=== PATIENT | female | born 1980 | race Caucasian/White ===

== ENCOUNTER 2020-06-23 22:27 | Emergency (ER) | payer OTHER, MEDICARE, SELFPAY ==
--- NOTE | ~2020-06-23 | CT_ITS ---
EXAMINATION: CT lumbar spine wo con DATE: 06/23/2020 23:43 INDICATION: Low back pain. TECHNIQUE: Computed tomography (CT) of the lumbar spine was performed without intravenous contrast. A utomated exposure control and iterative reconstruction technique were employed. The dose-length produ ct was 362.45 mGy-cm. COMPARISON: Lumbar spine radiographs 01/02/2019 FINDINGS: There is an intrauterine device in abnormally low position. There is 5 degrees levocurvatur e of lumbar spine. There are changes of posterior fusion procedure at L4-L5 with pedicle screws. Vert ebral body heights are normal. There is mildly decreased disc height at T12-L1, severely decreased di sc height at L3-L4, and moderately decreased disc height at L4-L5. The following disc levels are spec ifically discussed: L1-L2: The disc does not extend beyond the endplate margin. There is mild bilateral facet joint osteo arthritis. There is no neural foraminal stenosis. There is no central canal stenosis. L2-L3: The disc is bulging. There is severe bilateral facet joint osteoarthritis. There is mild bilat eral neural foraminal stenosis. There is mild central canal stenosis. L3-L4: The disc is bulging. There is severe bilateral facet joint osteoarthritis. There is moderate b ilateral neural foraminal stenosis. There is moderate central canal stenosis. L4-L5: The disc is bulging. There is moderate bilateral facet joint hypertrophy. There is mild right and moderate left neural foraminal stenosis. There is mild central canal stenosis with posterior deco mpression. L5-S1: The disc does not extend beyond the endplate margin. There is severe bilateral facet joint ost eoarthritis. There is mild bilateral neural foraminal stenosis. There is no central canal stenosis. IMPRESSION: 1. Severe lumbar spondylosis. 2. Posterior fusion procedure at L4-L5. 3. Intrauterine device in abnormally low position. Reviewed, dictated and finalized at location A.
[2020-06-23 22:35] VITALS: BP 123/64; PULSE 97; RESP 18; TEMP 36.3; O2SAT 99
--- NOTE | 2020-06-23 23:04 | ED.GENADULT ---
HPI - General Adult General Chief complaint: Back Pain/Injury Stated complaint: muscle spasms in back Time Seen by Provider: 06/23/20 23:02 Source: patient and family () Mode of arrival: ambulatory Limitations: no limitations History of Present Illness HPI narrative: 40-year-old female is here for treatment of acute on chronic back pain. She has a long history of back surgeries and degenerative disc disease. She is on medications for pain and muscle spasms. Her back pain originated from a work injury in 2003 and she has had spinal fusion 2008. She states that for the last several days the pain has been getting worse in her back and shooting down her left leg. She occasionally uses a walker at home when the pain gets especially bad. Denies any bowel or bladder dysfunction, no saddle anesthesia Onset (ago): day(s) Radiation: extremity (left leg) Severity: severe Pain Consistency: constant Relieving factors: none Exacerbating factors: movement and other (touch) Related Data Home Medications Medication Instructions Recorded Confirmed albuterol sulfate [Ventolin HFA] 2 puff INHALATION QID PRN 06/23/20 alprazolam [Xanax] 06/23/20 aripiprazole [Abilify] 5 mg PO DAILY 06/23/20 atorvastatin 20 mg PO DAILY 06/23/20 baclofen 5 mg PO TID 06/23/20 certolizumab pegol [Cimzia] 400 mg SUBCUT ONCE 06/23/20 dicyclomine 20 mg PO BID 06/23/20 famotidine 40 mg PO BID 06/23/20 lamotrigine [Lamictal] 200 mg PO BID 06/23/20 Allergies Allergy/AdvReac Type Severity Reaction Status Date / Time rofecoxib Allergy Intermediate hives Verified 06/23/20 23:09 levofloxacin Allergy Unknown Rash Verified 06/23/20 23:09 meloxicam Allergy Unknown Rash Verified 06/23/20 23:09 methotrexate Allergy Unknown Rash Verified 06/23/20 23:09 paroxetine Allergy Unknown Rash Verified 06/23/20 23:09 Penicillins Allergy Unknown HIVES Verified 06/23/20 23:09 sertraline Allergy Unknown Rash Verified 06/23/20 23:09 Review of Systems Review of Systems: All systems reviewed & are unremarkable except as noted in HPI and below PMFSH Past Medical History Medical History Arthritis Back pain DDD (degenerative disc disease) Depression Fibromyalgia Migraines Surgical History Surgical History Hx of appendectomy Hx of spinal surgery Social History Social History (Updated 06/23/20 @ 23:26 by Jeannine Garrido PA-C) Smoking status: Never smoker Alcohol intake: never Living arrangements: with family Occupation/Education: other Additional occupation/education comments: disability Gender identity (if verbalized by the patient): Female Exam Const: General: healthy appearing, no acute distress and alert HENMT: Head: normal to inspection Eyes: Pupils: Equal, round and reactive pupils present Resp: Effort & Inspection: normal respiratory effort Auscultation: clear to auscultation bilaterally Cardio: Rate: regular rate Rhythm: regular rhythm Back/Spine/Pelvis: Thoracic/Lumbar Spine: pain with thoraco-lumbar ROM, paraspinal muscle tenderness (exquisitely tender to light touch over well healed scar.), thoraco-lumbar ROM limited (in all planes) and lumbar spinal tenderness Skin: General skin exam: normal color Neuro: General: moves all extremities and no focal motor deficits Extrem: General: normal to inspection Other: normal strength in lower extremities. Course Course Emergency Course: Radiology results reviewed with the patient and her . Recommend that she double her dose of baclofen to 10 mg 3 times daily and will treat with a Medrol Dosepak. Patient agrees with the plan and will follow up with her doctor as well. Vital Signs Vital signs: Vital Signs Temperature 36.3 C L 06/23/20 22:35 Pulse Rate 97 06/23/20 22:35 Respiratory Rate 18 06/23/20 22:35 Blood Pressure 123/64 06/23/20 22:35 Pulse
[2020-06-24] MEDS: predniSONE 40 MG, predniSONE 10 MG 50 MG PO (00:43)
[2020-06-24 00:45] VITALS: BP 110/70; PULSE 80; RESP 16; TEMP 37; O2SAT 100
== END 2020-06-24 00:54 | disposition home or self-care (01) ==
PROVIDERS: Emergency Provider Emergency Medicine; PCP Internal Medicine
DX: M54.42 Lumbago with sciatica, left side (principal); G89.29 Other chronic pain; Z98.1 Arthrodesis status; M19.90 Unspecified osteoarthritis, unspecified site; M79.7 Fibromyalgia; F32.9 Major depressive disorder, single episode, unspecified; Z97.5 Presence of (intrauterine) contraceptive device; M47.816 Spondylosis without myelopathy or radiculopathy, lumbar region
CPT/HCPCS: 72131; 99284; J7512

== ENCOUNTER 2021-04-01 10:41 | Outpatient (CLI) | payer OTHER, MEDICARE, SELFPAY ==
--- NOTE | ~2021-04-01 | XR_ITS ---
XR knee RT 2V 04/01/2021 11:04 Indication: Chronic right knee pain Procedure: 2 views right knee Comparison: No prior studies for comparison. Findings: Mild osteoarthritis of the right knee. No fracture, subluxation or dislocation. No signific ant joint effusion. No foreign bodies. Impression: 1: Mild osteoarthritis of the right knee. Reviewed, dictated and finalized at location A. LE DEVICE ENGINEER Impression: 1: Mild osteoarthritis of the right knee.
[2021-04-01 17:42] LABS: Basophils Absolute Auto 0.1 K/mm3 (0.0-0.1); Basophils Percent Auto 0.7 % (0.2-1.2); Eosinophils Absolute Auto 0.4 K/mm3 (0-0.3); Hematocrit 37.9 % (37.0-47.0); Hemoglobin 12.5 g/dL (12.0-15.0); Immature Granulocyte Absolute 0.03 K/mm3 (0.00-0.031); Immature Granulocyte Percent A 0.3 % (0-0.5); Lymphocytes Absolute Auto 2.56 K/mm3 (0.9-3.2); Lymphocytes Percent Auto 27.2 % (18.3-44.2); Mean Corpuscular Hemoglobin 32.3 pg (26-34); Mean Corpuscular Volume 97.9 fl (80-100); Mean Platelet Volume 11.5 fl (7.4-10.4); Monocytes Absolute Auto 0.6 K/mm3 (0.1-0.6); Monocytes Percent Auto 6.4 % (2.6-8.5); Neutrophils Absolute Auto 5.8 K/mm3 (1.3-6.7); Neutrophils Percent Auto 61.4 % (45.5-73.1); Platelet Count Result 235 k/mm3 (150-375); Red Blood Count 3.87 M/mm3 (4.2-5.4); Red Cell Distribution Width 12.6 % (11.5-14.5); White Blood Count 9.4 K/mm3 (4.5-10.0)
[2021-04-01 17:50] LABS: Alanine Aminotransferase 9 U/L (4-35); Albumin Level 4.4 g/dL (3.5-5.1); Alkaline Phosphatase 78 U/L (38-126); Anion Gap 9 mmol/L (8-16); Aspartate Amino Transferase 20 U/L (14-36); Bilirubin,Total 0.5 mg/dL (0.2-1.3); Blood Urea Nitrogen 4 mg/dL (7-17); Calcium 9.2 mg/dL (8.4-10.2); Carbon Dioxide 28 mmol/L (22-30); Chloride 100 mmol/L (98-107); Cholesterol 142 mg/dL (0-200); Estimated Glomerular Filt Rate 55; Glucose 89 mg/dL (65-110); HDL Direct 53 mg/dL; Potassium 4.1 mmol/L (3.4-5.0); Sodium 137 mmol/L (137-145); Triglycerides 75 mg/dL (<150)
[2021-04-01 18:01] LABS: LDL Cholesterol Direct 66 mg/dL
[2021-04-01 18:52] LABS: Hemoglobin A1C 5.1 % (<5.7)
== END 2021-04-01 10:42 | disposition home or self-care (01) ==
PROVIDERS: PCP Family Medicine; Visit Provider Family Medicine
DX: O24.919 Unspecified diabetes mellitus in pregnancy, unspecified trimester (principal); Z83.3 Family history of diabetes mellitus; E78.5 Hyperlipidemia, unspecified; M17.11 Unilateral primary osteoarthritis, right knee; Z3A.00 Weeks of gestation of pregnancy not specified
CPT/HCPCS: 36415; 73560; 80053; 80061; 83036; 85025

== ENCOUNTER 2021-06-24 15:33 | Outpatient (CLI) | payer OTHER, MEDICARE, SELFPAY ==
--- NOTE | ~2021-06-24 | XR_ITS ---
XR lumbar spine min 4V DATE: 06/24/2021 15:51 INDICATION: Fall 2 days ago. Left low back pain. TECHNIQUE: AP, lateral, coned lateral lumbosacral and bilateral oblique views COMPARISON: 06/23/2020 CDT lumbar spine FINDINGS: Status post posterior surgical spinal fusion at L4-5 with bilateral pedicle screws and rods . There is severe degenerative disease at L3-4 and moderately prominent degenerative disc disease at L4 -5. There is mild degenerative disc disease at the remaining lumbar and lumbosacral interspaces. No fracture or bone destruction is evident. The lumbar pedicles appear intact. Sacroiliac joints are unremarkable. IUD overlies the mid pelvis. IMPRESSION: Status post posterior surgical fusion at L4-5 Severe degenerative disc disease at L3-4 Moderate degenerative disease at L4-5 and mild degenerative disc disease at the remaining lumbar and lumbosacral interspaces Reviewed, dictated and finalized at location A.
--- NOTE | ~2021-06-24 | XR_ITS ---
XR knee RT 3V 06/24/2021 15:51 Indication: Status post recent fall. Right knee pain. Procedure: 3 views right knee Comparison: 04/01/2021 Findings: No significant joint space narrowing. Mild osteoarthritis of the patellofemoral compartment . No acute fracture, subluxation or dislocation. No significant joint effusion. Impression: 1: Mild osteoarthritis of the right knee. Reviewed, dictated and finalized at location B. Impression: 1: Mild osteoarthritis of the right knee.
== END 2021-06-24 15:34 | disposition home or self-care (01) ==
LOC: ANHBWCIMG 15:36
PROVIDERS: PCP Family Medicine; Visit Provider Family Medicine
DX: M79.7 Fibromyalgia (principal); M47.816 Spondylosis without myelopathy or radiculopathy, lumbar region; Z98.1 Arthrodesis status; Z97.5 Presence of (intrauterine) contraceptive device; M17.11 Unilateral primary osteoarthritis, right knee
CPT/HCPCS: 72110; 73562

== ENCOUNTER 2021-09-18 17:14 | Emergency (ER) | payer MEDICARE, MEDICAID, SELFPAY ==
[2021-09-18 17:16] VITALS: BP 105/65; PULSE 78; RESP 14; TEMP 36.8; O2SAT 98
--- NOTE | 2021-09-18 17:56 | ED.DENTAL ---
HPI - Dental/Oral General Chief complaint: Dental/Oral Stated complaint: tooth pain Time Seen by Provider: 09/18/21 17:56 Source: patient Mode of arrival: ambulatory History of Present Illness HPI Narrative: 41-year-old female presented for complaint of right lower jaw swelling, onset today. Rates pain 8 out of 10. Endorses multiple dental caries, broken teeth. She does not have a dentist. She has taken ibuprofen for symptoms. Denies nausea, vomiting, fevers or chills. MD Complaint: tooth pain Related Data Home Medications Medication Instructions Recorded Confirmed albuterol sulfate 90 mcg/actuation 2 puff inhalation QID PRN 06/23/20 09/18/21 aerosol inhaler (Ventolin HFA) Bronchospasm famotidine 40 mg tablet 40 mg PO BID 06/23/20 09/18/21 folic acid 1 mg tablet 1 mg PO DAILY 09/02/20 09/18/21 atorvastatin 20 mg tablet 20 mg PO DAILY 09/18/21 09/18/21 Allergies Allergy/AdvReac Type Severity Reaction Status Date / Time rofecoxib Allergy Intermediate hives Verified 09/18/21 17:52 levofloxacin Allergy Unknown Rash Verified 09/18/21 17:52 meloxicam Allergy Unknown Rash Verified 09/18/21 17:52 methotrexate Allergy Unknown Rash Verified 09/18/21 17:52 paroxetine Allergy Unknown Rash Verified 09/18/21 17:52 Penicillins Allergy Unknown HIVES Verified 09/18/21 17:52 sertraline Allergy Unknown Rash Verified 09/18/21 17:52 Review of Systems Review of Systems: CONSTITUTIONAL: Denies body aches, fever, chills ENT: Denies rhinorrhea, congestion, sore throat, or otalgia. Reports dental pain CARDIOVASCULAR: Denies chest pain, palpitations RESPIRATORY: Denies cough or dyspnea. SKIN: Denies rash, itching, or wounds. MUSCULOSKELETAL: Denies myalgia. NEUROLOGIC: Denies headache, numbness, tingling, or weakness. PMF Past Medical History Medical History Allergies Anxiety Arthritis Back pain DDD (degenerative disc disease) Depression Fibromyalgia IBS (irritable bowel syndrome) Migraines Osteoarthritis Surgical History Surgical History Hx of appendectomy Hx of spinal surgery Family History Family History Father Diabetes mellitus Hypertension Cancer Anxiety and depression Mother Diabetes mellitus Sibling Diabetes mellitus Hypertension Unknown Asthma Anxiety and depression Grandparent Cancer Grandparent Cancer Diabetes mellitus Hypertension Depression Social History Social History Smoking packs per day: 0.5 Smoking cigarettes per day: 10.0 Smoking status: Former smoker Smoking end date: 04/11/20 Alcohol intake: never Additional occupation/education comments: disability Gender identity (if verbalized by the patient): Female Comments At time of signature, I have reviewed and agree with nursing past medical, surgical, social and family history unless otherwise noted. Please see nursing chart for further information. There is no relevant family history pertinent to the presenting complaint Exam Narrative: GENERAL: Appears in pain; no acute distress. HEAD: atraumatic. EYES: EOMI. No redness or drainage. Conjunctivae normal. ENT: Right lower jaw moderate swelling and mild erythema, multiple broken and missing teeth and caries, site is most consistent with #30 mucous membranes pink and moist. TMs normal bilaterally. Throat normal. Uvula midline. NECK: Normal AROM. Supple. No lymphadenopathy. CHEST: No respiratory distress. Clear to auscultation. HEART: Regular rate and rhythm. No murmur appreciated. ABDOMEN: Soft, nontender, nondistended, normal active bowel sounds. SKIN: Warm, dry, no rash. Normal skin turgor. NEURO: No focal deficits. Alert and oriented x3. Gait steady. Course Course Emergency Course: Patient is aware of diagnosis, un
== END 2021-09-18 18:10 | disposition home or self-care (01) ==
PROVIDERS: Emergency Provider Nurse Practitioner Family; PCP Family Medicine
DX: K04.7 Periapical abscess without sinus (principal); K02.9 Dental caries, unspecified; Z87.891 Personal history of nicotine dependence; M19.90 Unspecified osteoarthritis, unspecified site; M79.7 Fibromyalgia
CPT/HCPCS: 99213; G0463

== ENCOUNTER 2021-11-26 11:12 | Outpatient (CLI) | payer MEDICARE, MEDICAID, SELFPAY ==
--- NOTE | ~2021-11-26 | XR_ITS ---
EXAMINATION: XR hand RT min 3V INDICATION: Right hand pain TECHNIQUE: Three views of the right hand are obtained. COMPARISON: None available FINDINGS: There is no fracture, dislocation, or subluxation. The bones, soft tissues, and joint space s are normal. IMPRESSION: 1. No acute osseous abnormality. Reviewed, dictated and finalized at location A.
== END 2021-11-26 11:13 | disposition home or self-care (01) ==
LOC: ANHBWCIMG 11:13
PROVIDERS: PCP Family Medicine; Visit Provider Family Medicine
DX: M79.641 Pain in right hand (principal)
CPT/HCPCS: 73130

== ENCOUNTER 2021-12-17 08:16 | Outpatient (CLI) | payer MEDICARE, MEDICAID, SELFPAY ==
--- NOTE | ~2021-12-17 | XR_ITS ---
XR finger 3rd LT min 2V DATE: 12/17/2021 08:32 INDICATION: Third digit pain TECHNIQUE: 4 views COMPARISON: None FINDINGS: No fracture, dislocation, periosteal reaction or bone destruction. No radiopaque soft tissu e foreign body or subcutaneous emphysema. No soft tissue swelling is evident. No erosive change. IMPRESSION: No significant abnormality Reviewed, dictated and finalized at location A. IMPRESSION: No significant abnormality
== END 2021-12-17 08:17 | disposition home or self-care (01) ==
LOC: ANHBWCIMG 08:18
PROVIDERS: PCP Family Medicine; Visit Provider Family Medicine
DX: M79.645 Pain in left finger(s) (principal)
CPT/HCPCS: 73140

== ENCOUNTER 2022-03-31 09:40 | Outpatient (CLI) | payer MEDICARE, OTHER, MEDICAID, SELFPAY ==
--- NOTE | ~2022-03-31 | XR_ITS ---
Right foot Technique: AP, oblique, and lateral views were obtained. Clinical History: Pain Findings: No acute fracture or dislocation is seen. Osseous alignment is anatomic. Mild degenerative changes are present at the first metatarsophalangeal joint and sesamoid metatarsal articulations. Sof t tissues are unremarkable. Impression: Mild degenerative changes about the first MPJ region, as detailed above. Reviewed, dictated and finalized at location . EY RESEARCH MANAGER Impression: Mild degenerative changes about the first MPJ region, as detailed above.
[2022-03-31 19:34] LABS: Uric Acid 4.1 mg/dL (2.5-7.5)
== END 2022-03-31 09:41 | disposition home or self-care (01) ==
PROVIDERS: PCP Family Medicine; Visit Provider Family Medicine
DX: M79.671 Pain in right foot (principal); M10.9 Gout, unspecified
CPT/HCPCS: 36415; 73630; 84550

== ENCOUNTER 2022-04-14 13:26 | Outpatient (CLI) | payer MEDICARE, MEDICAID, SELFPAY ==
[2022-04-14 18:33] LABS: Alanine Aminotransferase 20 U/L (6-35); Albumin Level 4.2 g/dL (3.5-5.1); Alkaline Phosphatase 71 U/L (38-126); Anion Gap 3 mmol/L (8-16); Aspartate Amino Transferase 31 U/L (14-36); Bilirubin,Total 0.2 mg/dL (0.2-1.3); Blood Urea Nitrogen 10 mg/dL (7-17); Calcium 8.7 mg/dL (8.4-10.2); Carbon Dioxide 32 mmol/L (22-30); Chloride 102 mmol/L (98-107); Cholesterol 162 mg/dL (0-200); Estimated Glomerular Filt Rate 45; Glucose 91 mg/dL (65-110); HDL Direct 48 mg/dL; Potassium 3.7 mmol/L (3.4-5.0); Sodium 137 mmol/L (137-145); Triglycerides 191 mg/dL (<150)
[2022-04-14 18:44] LABS: LDL Cholesterol Direct 54 mg/dL
[2022-04-14 19:47] LABS: Hemoglobin 12.5 g/dL (12.0-15.0); Mean Corpuscular HGB Conc 32.1 g/dl (32-36); Mean Corpuscular Hemoglobin 31.1 pg (26-34); Mean Platelet Volume 10.4 fl (7.4-10.4); Platelet Count Result 322 k/mm3 (150-375); Red Blood Count 4.02 M/mm3 (4.2-5.4); Red Cell Distribution Width 13.3 % (11.5-14.5); White Blood Count 12.3 K/mm3 (4.5-10.0)
== END 2022-04-14 13:27 | disposition home or self-care (01) ==
LOC: ANHBWCLAB 13:27
PROVIDERS: PCP Family Medicine; Visit Provider Family Medicine
DX: M54.50 Low back pain, unspecified (principal); M25.559 Pain in unspecified hip; G89.29 Other chronic pain; M25.569 Pain in unspecified knee; F31.9 Bipolar disorder, unspecified; K58.9 Irritable bowel syndrome, unspecified; L40.50 Arthropathic psoriasis, unspecified; M79.7 Fibromyalgia; M54.9 Dorsalgia, unspecified; F41.9 Anxiety disorder, unspecified
CPT/HCPCS: 36415; 80053; 80061; 85027

== ENCOUNTER 2022-11-01 10:58 | Outpatient (CLI) | payer MEDICARE, MEDICAID, SELFPAY ==
[2022-11-01 20:38] LABS: Alanine Aminotransferase 27 U/L (6-35); Albumin Level 4.4 g/dL (3.5-5.1); Alkaline Phosphatase 78 U/L (38-126); Anion Gap 8 mmol/L (8-16); Aspartate Amino Transferase 44 U/L (14-36); Bilirubin,Total 0.2 mg/dL (0.2-1.3); Blood Urea Nitrogen 8 mg/dL (7-17); Calcium 9.4 mg/dL (8.4-10.2); Carbon Dioxide 31 mmol/L (22-30); Chloride 98 mmol/L (98-107); Estimated Glomerular Filt Rate 49; Glucose 90 mg/dL (65-110); Potassium 4.3 mmol/L (3.4-5.0); Sodium 137 mmol/L (137-145)
== END 2022-11-01 10:59 | disposition home or self-care (01) ==
PROVIDERS: PCP Family Medicine; Visit Provider Nurse Practitioner Adult Health
DX: G25.81 Restless legs syndrome (principal); N28.9 Disorder of kidney and ureter, unspecified
CPT/HCPCS: 36415; 80053

== ENCOUNTER 2022-11-11 13:46 | Emergency (ER) | payer MEDICARE, OTHER, MEDICAID, SELFPAY ==
--- NOTE | ~2022-11-11 | XR_ITS ---
EXAMINATION: XR hand RT min 3V DATE: 11/11/2022 14:08 INDICATION: Lateral right hand pain and bruising post fall TECHNIQUE: Posteroanterior, oblique and lateral views of the right hand were obtained. COMPARISON: 11/26/2021 FINDINGS: Alignment is normal. No fracture. Unchanged minimal to mild osteoarthritis at the first carpometacarp al, first metacarpophalangeal and multiple predominantly distal interphalangeal joints. No erosions. Soft tissues are unremarkable. IMPRESSION: 1. Minimal to mild polyarticular osteoarthritis with typical distribution at the right hand. No acute osseous abnormality. Reviewed, dictated and finalized at location A. IMPRESSION: 1. Minimal to mild polyarticular osteoarthritis with typical distribution at th e right hand. No acute osseous abnormality.
--- NOTE | 2022-11-11 13:52 | ED.UPPEXIN ---
HPI - Extremity Injury (Upper) General Chief Complaint: Extremity Injury, Upper Stated Complaint: Right Wrsit Injury Source: patient, family and RN notes reviewed History of Present Illness HPI narrative: 42 yo F presents to urgent care with complaints of right hand pain and bruising. Pt states she tripped over her dog yesterday and fell backwards, injuring her right hand. Pt states she landed on a set of plastic drawers and hit the back of her head on the TV stand. Pt denies any LOC, neck pain, or TORRES. Denies any chest pain, SOB, vomiting, or abdominal pain. Pt has taken ibuprofen with minimal relief. Related Data Home Medications Medication Instructions Recorded Confirmed famotidine 40 mg tablet 40 mg PO BID 06/23/20 09/13/22 folic acid 1 mg tablet 1 mg PO DAILY 09/02/20 09/13/22 cariprazine 6 mg capsule (Vraylar) mg 11/11/22 lurasidone 60 mg tablet mg 11/11/22 Allergies Allergy/AdvReac Type Severity Reaction Status Date / Time rofecoxib Allergy Intermediate hives Verified 11/01/22 10:20 levofloxacin Allergy Unknown Rash Verified 11/01/22 10:20 meloxicam Allergy Unknown Rash Verified 11/01/22 10:20 methotrexate Allergy Unknown Rash Verified 11/01/22 10:20 paroxetine Allergy Unknown Rash Verified 11/01/22 10:20 Penicillins Allergy Unknown HIVES Verified 11/01/22 10:20 sertraline Allergy Unknown Rash Verified 11/01/22 10:20 Review of Systems Review of Systems: CONSTITUTIONAL: Denies fever, chills, or sweats. EYES: Denies visual changes, redness, or discharge. ENT: Denies otalgia and sore throat CARDIOVASCULAR: Denies chest pain, palpitations, or edema. RESPIRATORY: Denies cough or dyspnea. GASTROINTESTINAL: Denies abdominal pain, nausea, vomiting, or diarrhea. GENITOURINARY: Denies dysuria or hematuria. SKIN: Denies rash or itching. MUSCULOSKELETAL: pain in right hand NEUROLOGIC: Denies headache, numbness, or weakness. Pertinent positives per HPI. [facility] Past Medical History Medical History Allergies Anxiety Arthritis Back pain DDD (degenerative disc disease) Depression Fibromyalgia IBS (irritable bowel syndrome) Migraines Osteoarthritis Surgical History Surgical History Hx of appendectomy Hx of spinal surgery Family History Family History Father Diabetes mellitus Hypertension Cancer Anxiety and depression Mother Diabetes mellitus Sibling Diabetes mellitus Hypertension Unknown Asthma Anxiety and depression Grandparent Cancer Grandparent Cancer Diabetes mellitus Hypertension Depression Social History Social History Smoking packs per day: 0.5 Smoking cigarettes per day: 10.0 Smoking status: Former smoker Smoking end date: 04/11/20 Alcohol intake: never Lack of Transportation: No Lack of Food: Sometimes True Current Housing: I Have Housing Concerned About Future Housing: No Difficulty Paying Gas/Electric Bills: YES Difficulty Paying for Meds: No Education: High School Diploma/GED Difficulty w/ Childcare or Family Care: No Living arrangements: with family Occupation/Education: other Additional occupation/education comments: disability Gender identity (if verbalized by the patient): Female Comments At the time of my signature, I reviewed and agree with the nursing past medical, surgical, social, and family history. There is no relevant family history pertinent to the patient complaint. Exam Narrative: GENERAL: This is a well-nourished, well-developed patient, in no apparent distress. HEAD: normocephalic, atraumatic. EYES: Sclera clear/white. Vision is grossly intact. EARS: External ears normal, auditory canals clear and without drainage. Hearing grossly intact. NOSE: External nose normal with no obv
[2022-11-11 14:00] VITALS: BP 126/86; PULSE 95; RESP 16; TEMP 36.9; O2SAT 99
[2022-11-11 14:01] VITALS: BP 126/86; PULSE 95; RESP 16; TEMP 36.9; O2SAT 99
== END 2022-11-11 14:30 | disposition home or self-care (01) ==
PROVIDERS: Emergency Provider Nurse Practitioner Family; PCP Family Medicine
DX: S60.221A Contusion of right hand, initial encounter (principal); W01.0XXA Fall on same level from slipping, tripping and stumbling without subsequent striking against object, initial encounter; M19.90 Unspecified osteoarthritis, unspecified site; M79.7 Fibromyalgia
CPT/HCPCS: 73130; 99213; G0463

== ENCOUNTER 2023-01-06 18:43 | Emergency (ER) | payer MEDICARE, OTHER, MEDICAID, SELFPAY ==
[2023-01-06 18:46] VITALS: BP 110/70; PULSE 98; RESP 20; TEMP 36.4; O2SAT 100
--- NOTE | 2023-01-06 19:05 | ED.EXTPRO ---
HPI - Extremity Problem General Chief complaint: Extremity Problem,Nontraumatic Stated complaint: right foot pain Time Seen by Provider: 01/06/23 19:00 Source: patient, RN notes reviewed and old records reviewed Mode of arrival: ambulatory Limitations: no limitations History of Present Illness HPI Narrative: 42 year old female who presents to [facility] care with complaints of pain to her right foot with some swelling and redness to the top of her foot with no injury for the past week. Patient reports that she has a history of gout and thinks that it must be a flare. Patient reports that she has taken Ibuprofen and Tyleol with no improvement. MD Complaint: extremity pain, extremity swelling and other (redness top of foot) Onset (ago): week(s) (1) Pain Consistency: constant Location: lower extremity (right foot) Severity scale (1-10): 7 Quality: burning Exacerbating factors: range of motion and weight bearing Related Data Home Medications Medication Instructions Recorded Confirmed famotidine 40 mg tablet 40 mg PO BID 06/23/20 09/13/22 folic acid 1 mg tablet 1 mg PO DAILY 09/02/20 09/13/22 cariprazine 6 mg capsule (Vraylar) mg 11/11/22 lurasidone 60 mg tablet mg 11/11/22 Allergies Allergy/AdvReac Type Severity Reaction Status Date / Time rofecoxib Allergy Intermediate hives Verified 01/03/23 10:31 levofloxacin Allergy Unknown Rash Verified 01/03/23 10:31 meloxicam Allergy Unknown Rash Verified 01/03/23 10:31 methotrexate Allergy Unknown Rash Verified 01/03/23 10:31 paroxetine Allergy Unknown Rash Verified 01/03/23 10:31 Penicillins Allergy Unknown HIVES Verified 01/03/23 10:31 sertraline Allergy Unknown Rash Verified 01/03/23 10:31 Review of Systems Review of Systems: CONSTITUTIONAL: Denies fever, chills, or sweats. EYES: Denies visual changes, redness, or discharge. ENT: Denies rhinorrhea, congestion, sore throat, or otalgia. CARDIOVASCULAR: Denies chest pain, palpitations, or edema. RESPIRATORY: Denies cough or dyspnea. GASTROINTESTINAL: Denies abdominal pain, nausea, vomiting, or diarrhea. GENITOURINARY: Denies dysuria or hematuria. SKIN: Denies rash or itching. MUSCULOSKELETAL: Reports chronic back pain,positive for pain to the right foot with redness and swelling top of foot no known trauma, or myalgia. NEUROLOGIC: Denies headache, numbness, or weakness. PSYCHIATRIC: positive for history of anxiety or depression. All systems reviewed & are unremarkable except as noted in HPI and below PMFSH Past Medical History Medical History (Updated 01/07/23 @ 12:52 by Dawna Bloom NP) Allergies Anxiety Arthritis Back pain DDD (degenerative disc disease) Depression Fibromyalgia IBS (irritable bowel syndrome) Migraines Osteoarthritis Surgical History Surgical History (Updated 01/07/23 @ 12:52 by Dawna Bloom NP) Hx of appendectomy Hx of spinal surgery cervical and spinal surgery Family History Family History Father Diabetes mellitus Hypertension Cancer Anxiety and depression Mother Diabetes mellitus Sibling Diabetes mellitus Hypertension Unknown Asthma Anxiety and depression Grandparent Cancer Grandparent Cancer Diabetes mellitus Hypertension Depression Social History Social History Smoking packs per day: 0.5 Smoking cigarettes per day: 10.0 Smoking status: Former smoker Smoking end date: 04/11/20 Alcohol intake: never Lack of Transportation: No Lack of Food: Sometimes True Current Housing: I Have Housing Concerned About Future Housing: No Difficulty Paying Gas/Electric Bills: YES Difficulty Paying for Meds: No Education: High School Diploma/GED Difficulty w/ Childcare or Family Care: No Living arrangements: with family Occupation/Education: other Additional occupation/education comments: disability Gender identity (if verba
== END 2023-01-06 19:26 | disposition home or self-care (01) ==
PROVIDERS: Emergency Provider Registered Nurse; PCP Family Medicine
DX: M25.571 Pain in right ankle and joints of right foot (principal); M10.9 Gout, unspecified; Z87.891 Personal history of nicotine dependence
CPT/HCPCS: 99213; G0463

== ENCOUNTER 2023-01-17 13:50 | Outpatient (CLI) | payer MEDICARE, MEDICAID, SELFPAY ==
--- NOTE | ~2023-01-17 | XR_ITS ---
EXAMINATION: [id number] DATE: 01/17/2023 14:08 INDICATION: Right foot pain. TECHNIQUE: 4 views of right foot were obtained. COMPARISON: None. FINDINGS: There is moderate hallux valgus. There is a nondisplaced fracture of tuft of first distal p halanx. There is an old fracture deformity of base of first distal phalanx. There is a comminuted fra cture of head and neck of second metatarsal. The main distal fracture fragment demonstrates 46 degree s lateral angulation. There is a comminuted fracture of head and neck of third metatarsal. The main d istal fracture fragment demonstrates 37 degrees lateral angulation. There is a comminuted fracture of head and neck of fourth metatarsal. The main distal fracture fragment demonstrates 25 degrees latera l angulation. There is mild osteoarthritis of some the interphalangeal joints. There is moderate oste oarthritis of first metatarsophalangeal joint. There is an enthesophyte at posterior aspect of calcan eal tuberosity. IMPRESSION: 1. Fracture of tuft of first distal phalanx. 2. Fractures of the heads and necks of the second-fourth metatarsals. 3. Moderate hallux valgus. 4. Polyarticular osteoarthritis. Reviewed, dictated and finalized at location A.
== END 2023-01-17 13:51 | disposition home or self-care (01) ==
PROVIDERS: PCP Family Medicine; Visit Provider Orthopaedic Surgery
DX: S92.424A Nondisplaced fracture of distal phalanx of right great toe, initial encounter for closed fracture (principal); S92.324A Nondisplaced fracture of second metatarsal bone, right foot, initial encounter for closed fracture; S92.334A Nondisplaced fracture of third metatarsal bone, right foot, initial encounter for closed fracture; S92.344A Nondisplaced fracture of fourth metatarsal bone, right foot, initial encounter for closed fracture; M20.11 Hallux valgus (acquired), right foot; M15.9 Polyosteoarthritis, unspecified; X58.XXXA Exposure to other specified factors, initial encounter
CPT/HCPCS: 73630

== ENCOUNTER 2023-02-28 13:05 | Outpatient (CLI) | payer MEDICARE, MEDICAID, SELFPAY ==
--- NOTE | ~2023-02-28 | XR_ITS ---
EXAMINATION: XR foot RT min 3V DATE: 02/28/2023 13:19 INDICATION: Right foot fracture follow-up TECHNIQUE: Dorsoplantar, lateral, and 2 oblique views of the right foot were obtained. COMPARISON: 01/17/2023 FINDINGS: A tuft fracture of the first distal phalanx is again seen. Calcified callus at the fracture site has increased. Fractures in the head and necks of the second through fourth metatarsals are als o again noted. There is increased calcified callus and remodeling at the fracture site. There is unch anged lateral angulation at the metatarsal fracture sites. No additional healing fracture is identifi ed. The soft tissues are unremarkable. IMPRESSION: 1. Fractures of the second through fourth metatarsals and tuft of the first distal phalanx with routi ne healing. Reviewed, dictated and finalized at location F. N TRIMMER IMPRESSION: 1. Fractures of the second through fourth metatarsals and tuft of the first dis tarik phalanx with routine healing.
== END 2023-02-28 13:06 | disposition home or self-care (01) ==
PROVIDERS: PCP Family Medicine; Visit Provider Orthopaedic Surgery
DX: S92.324D Nondisplaced fracture of second metatarsal bone, right foot, subsequent encounter for fracture with routine healing (principal); S92.334D Nondisplaced fracture of third metatarsal bone, right foot, subsequent encounter for fracture with routine healing; S92.344D Nondisplaced fracture of fourth metatarsal bone, right foot, subsequent encounter for fracture with routine healing; X58.XXXD Exposure to other specified factors, subsequent encounter
CPT/HCPCS: 73630

== ENCOUNTER 2023-09-21 14:01 | Outpatient (CLI) | payer MEDICARE, MEDICAID, SELFPAY ==
[2023-09-21 19:09] LABS: Hemoglobin 12.1 g/dL (12.0-15.0); Mean Corpuscular HGB Conc 31.8 g/dl (32-36); Mean Corpuscular Hemoglobin 29.8 pg (26-34); Mean Corpuscular Volume 93.6 fl (80-100); Platelet Count Result 426 k/mm3 (150-375); Red Blood Count 4.06 M/mm3 (4.2-5.4); Red Cell Distribution Width 14.9 % (11.5-14.5); White Blood Count 12.2 K/mm3 (4.5-10.0)
[2023-09-21 19:39] LABS: Alanine Aminotransferase 14 U/L (6-35); Albumin Level 4.4 g/dL (3.5-5.1); Alkaline Phosphatase 81 U/L (38-126); Anion Gap 5 mmol/L (4-12); Aspartate Amino Transferase 51 U/L (14-36); Bilirubin,Total 0.3 mg/dL (0.2-1.3); Blood Urea Nitrogen 7 mg/dL (7-17); Calcium 9.1 mg/dL (8.4-10.2); Carbon Dioxide 31 mmol/L (22-30); Chloride 100 mmol/L (98-107); Estimated Glomerular Filt Rate 54; Glucose 86 mg/dL (65-110); Potassium 4.6 mmol/L (3.4-5.0); Sodium 136 mmol/L (137-145)
== END 2023-09-21 14:02 | disposition home or self-care (01) ==
PROVIDERS: PCP Nurse Practitioner Adult Health; Visit Provider Nurse Practitioner Adult Health
DX: R59.9 Enlarged lymph nodes, unspecified (principal)
CPT/HCPCS: 36415; 80053; 85027

== ENCOUNTER 2024-02-21 11:57 | Outpatient (CLI) | payer MEDICARE, MEDICAID, SELFPAY ==
[2024-02-21 19:24] LABS: Rheumatoid Factor < 12.0 IU/ML (<12)
[2024-02-21 19:29] LABS: Alanine Aminotransferase 11 U/L (6-35); Albumin Level 4.3 g/dL (3.5-5.1); Alkaline Phosphatase 78 U/L (38-126); Anion Gap 8 mmol/L (4-12); Aspartate Amino Transferase 44 U/L (14-36); Bilirubin,Total 0.4 mg/dL (0.2-1.3); Blood Urea Nitrogen 12 mg/dL (7-17); Calcium 9.3 mg/dL (8.4-10.2); Carbon Dioxide 23 mmol/L (22-30); Chloride 101 mmol/L (98-107); Cholesterol 192 mg/dL (0-200); Estimated Glomerular Filt Rate 35; Glucose 82 mg/dL (65-110); HDL Direct 45 mg/dL; Potassium 4.5 mmol/L (3.4-5.0); Sodium 132 mmol/L (137-145); Triglycerides 178 mg/dL (<150)
[2024-02-21 19:40] LABS: LDL Cholesterol Direct 80 mg/dL
[2024-02-21 19:41] LABS: Hematocrit 31.9 % (37.0-47.0); Hemoglobin 10.2 g/dL (12.0-15.0); Mean Corpuscular Hemoglobin 29.1 pg (26-34); Mean Corpuscular Volume 91.1 fl (80-100); Mean Platelet Volume 9.8 fl (7.4-10.4); Platelet Count Result 402 k/mm3 (150-375); Red Cell Distribution Width 14.1 % (11.5-14.5); White Blood Count 9.1 K/mm3 (4.5-10.0)
[2024-02-21 20:28] LABS: Erythrocyte Sedimentation Rate 50 mm/hr (0-20)
[2024-02-23 04:28] LABS: ANA Cascade Screen NEGATIVE (NEGATIVE)
== END 2024-02-21 11:58 | disposition home or self-care (01) ==
LOC: ANHBWCLAB 12:00
PROVIDERS: PCP Nurse Practitioner Adult Health; Visit Provider Nurse Practitioner Adult Health
DX: E66.3 Overweight (principal); N28.9 Disorder of kidney and ureter, unspecified; M19.90 Unspecified osteoarthritis, unspecified site; R41.9 Unspecified symptoms and signs involving cognitive functions and awareness; M10.9 Gout, unspecified; L40.50 Arthropathic psoriasis, unspecified; G89.29 Other chronic pain; Z79.899 Other long term (current) drug therapy
CPT/HCPCS: 36415; 80053; 80061; 84443; 84550; 85027; 85652; 86038; 86225; 86235; 86364; 86430

== ENCOUNTER 2024-02-22 10:13 | Outpatient (CLI) | payer MEDICARE, MEDICAID, SELFPAY ==
[2024-02-22 19:54] LABS: Iron 66 ug/dL (37-170)
[2024-02-22 20:04] LABS: Percent Iron Saturation 29 % (20-50)
== END 2024-02-22 10:14 | disposition home or self-care (01) ==
LOC: ANHBWCLAB 10:14
PROVIDERS: PCP Nurse Practitioner Adult Health; Visit Provider Nurse Practitioner Adult Health
DX: D64.9 Anemia, unspecified (principal)
CPT/HCPCS: 36415; 82728; 83540; 83550

== ENCOUNTER → 2024-09-25 10:32 | Outpatient (CLI) | payer MEDICARE, MEDICAID, SELFPAY ==
--- NOTE | ~2024-09-25 | XR_ITS ---
Right Hand Technique: PA and lateral views were obtained. Clinical History: Respiratory Findings: No acute fracture or dislocation is seen. Osseous alignment is anatomic. Joint spaces are p reserved. Soft tissues are unremarkable. Impression: Unremarkable right hand. Reviewed, dictated and finalized at location M. Impression: Unremarkable right hand.
--- NOTE | ~2024-09-25 | XR_ITS ---
Left Hand Technique: PA and lateral views were obtained. Clinical History: Pain Findings: No acute fracture or dislocation is seen. Osseous alignment is anatomic. Joint spaces are p reserved. Soft tissues are unremarkable. Impression: Unremarkable left hand. Reviewed, dictated and finalized at location M. Impression: Unremarkable left hand.
--- NOTE | ~2024-09-25 | XR_ITS ---
AP and oblique views of the SI joints CLINICAL HISTORY: Rheumatoid arthritis FINDINGS: There is minimal degenerative change of both SI joints. No erosive change or definite scler osis identified. Bilateral hip joints are intact. Soft tissues are unremarkable aside Myoview. IMPRESSION: Minimal degenerative change of the SI joints. Reviewed, dictated and finalized at location .
--- NOTE | ~2024-09-25 | XR_ITS ---
Lumbosacral Spine: AP and lateral views Clinical History: Rheumatoid arthritis COMPARISON: 06/24/2021 Findings: Posterior fusion from L4 to L5 is unchanged. No acute fracture or dislocation seen in the l umbar spine. There is probable mild chronic wedging deformity of T11. There is severe degenerative di sc narrowing at L3-L4. Remaining disc spaces are relatively well-preserved. There is mild to moderate facet arthropathy. The sacroiliac joints are normally outlined. Impression: Severe degenerative disc narrowing at L3-L4. Posterior fusion from L4 to L5. Mild probable chronic wedging deformity of T11. Reviewed, dictated and finalized at location . Impression: Severe degenerative disc narrowing at L3-L4. Posterior fusion from L4 to L5. Mild probable chronic wedging deformity of T11.
--- NOTE | ~2024-09-25 | XR_ITS ---
Right foot Technique: AP and lateral views were obtained. Clinical History: Rheumatoid arthritis Findings: No acute fracture or dislocation is seen. Osseous alignment is anatomic. There is mild dege nerative change of the first MTP joint. Soft tissues are unremarkable. Impression: Mild degenerative change of the first MTP joint. Reviewed, dictated and finalized at location . Impression: Mild degenerative change of the first MTP joint.
--- NOTE | ~2024-09-25 | XR_ITS ---
Left foot Technique: AP and lateral views were obtained. Clinical History: Rheumatoid arthritis Findings: No acute fracture or dislocation is seen. Osseous alignment is anatomic. Joint spaces are p reserved without erosive or degenerative change. Soft tissues are unremarkable. Impression: Unremarkable left foot radiographs. Reviewed, dictated and finalized at location . Impression: Unremarkable left foot radiographs.
--- OUTSIDE RECORDS SUMMARY | 2024-09-25 11:43 | XMS_ITS | Clinical Summary ---
Author Organization [facility] Address [address] [address] Care Team Providers Care Padded Box Sewer Name Role Phone Shaka Poe MD Primary Care Provider [phone] Allergies Active Allergy Reactions Criticality Noted Date Comments Levofloxacin Hives Medium 04/14/2011 Meloxicam Rash Medium 10/20/2017 Methotrexate Rash Medium 10/20/2017 Paroxetine Hcl Swelling Medium 04/14/2011 Penicillins Hives Medium 04/14/2011 Rofecoxib Hives Medium 04/14/2011 Sertraline Swelling Medium 04/14/2011 Medications lamoTRIgine (LaMICtal) 200 mg tablet take 1 tablet by oral route 2 times every day 0 0 03/25/20 15 Active dicyclomine (BENTYL) 20 mg tabletIndicatio ns:Irritable Bowel Syndrome Take 20 mg by mouth 2 (two) times a day. 05/09/19 19 Active CIMZIA STARTER KIT 400 mg/2 mL (200 mg/mL x 2) syringe kit INJECT THE CONTENTS OF 2 SYRINGES (400 MG) SUBCUTANEOUSLY AT WEEKS 0, 2, AND 4 THEN EVERY 4 WEEKS THEREAFTER. 0 01/10/20 19 Active VENTOLIN HFA 90 mcg/actuation inhaler 04/08/20 19 Active ALPRAZolam (XANAX) 1 mg tablet Take 1 tablet (1 mg total) by mouth 2 (two) times a day as needed for anxiety 1 tablet 05/19/19 20 Active Additional Information Patient taking differently: 0.5 mgoral4 times daily PRN, anxiety, Reported on 09/26/2019 atorvastatin (LIPITOR) 20 mg tablet Take 1 tablet (20 mg total) by mouth daily 30 tablet 5 05/19/19 20 Active [id number] -[id number] 1 mg-25 mg-12.5 mg-1 mg tablet daily 02/13/20 19 Active levonorgestrel (Mirena) IUD Mirena 20 mcg/24 hours (5 yrs) 52 mg intrauterine device Take 1 device by intrauterine route. Active naloxone (NARCAN) 4 mg/actuation spray,non-aeros olIndications:A t risk for respiratory depression due to opioid Administer 1 spray into affected nostril(s) as needed for opioid reversal 1 each 09/25/19 20 Active famotidine (PEPCID) 40 mg tablet Take 40 mg by mouth 2 (two) times a day Active DULoxetine DR (CYMBALTA) 20 mg capsule Take 20 mg by mouth daily Active FLUoxetine (PROzac) 20 mg capsule TAKE 2 CAPSULES BY MOUTH ONCE A DAY 01/01/20 20 Active folic acid (FOLVITE) 1 mg tablet Take 2,000 mcg by mouth daily 01/15/20 20 Active baclofen (LIORESAL) 10 mg tablet TAKE 1 TABLET BY MOUTH THREE TIMES A DAY 90 tablet 02/18/20 20 Active lidocaine (LIDODERM) 5 % Place 2 patches on the skin daily Remove & discard patch within 12 hours or as directed by MD. 30 patch 12/22/19 Active Active Problems Problem Noted Date Diagnosed Date HLA B27 positive 05/24/2019 Leukocytosis 05/24/2019 Low back pain 05/24/2019 Mechanical complication of i ntrauterine contraceptive device 05/24/2019 Myalgia 05/24/2019 Paresthesia of upper extremity 05/24/2019 Polyarthritis 05/24/2019 Psoriatic arthritis 05/24/2019 Tobacco user 05/24/2019 Thoracic spondylosis without myelopathy 05/24/19 20 UTI (urinary tract infection) 05/19/2019 Assessment & Plan (05/19/2019 4:05 PM COST CONTROL SUPERVISOR): Ucx: Group B strep -keflex prescription provided HLD (hyperlipidemia) 05/19/2019 Assessment & Plan (05/19/2019 4:14 PM COST CONTROL SUPERVISOR): 2 TC 256, HDL 44, LDL 169, TG 213, ASCVD 10yr ~5.9% -in shared decision making start atorva 20 and recommend low fat/low cholesterol diet Psychiatric disorder 05/18/2019 Assessment & Plan (05/19/2019 4:20 PM COST CONTROL SUPERVISOR): Patient endorses bipolar/anxiety/depression - continue meds for bipolar and depression: lamictal (level 8.6 at ~24hr, wnl), prozac, with xanax cut down as above. -In future consider change to longer acting benzodiazepine Assessment & Plan (05/18/2019 12:27 AM COST CONTROL SUPERVISOR): - patient endorses bipolar/anxiety/depression - continue meds for bipolar and depression, with xanax cut down as above. - psych consult in am to help with titration Encephalopathy 05/18/2019 Assessment & Plan (05/19/2019 4:12 PM COST CONTROL SUPERVISOR): Encephalopathy metabolic- UTI and due to opiates/benzos as well as other sedating home medications. Patient presents with 2nd episode of possible syncope and AMS in the past month. Ddx most likely polypharmacy (multiple sedating medications) vs seizure vs undiagnosed ARYA (body habitus not entirely c/w this and patient denies every being told she snores) vs less likely infection (UA dirty but 3+ LE and 3+ bacteria, patient asymptomatic). UDS: morphine (rx) and benzo (rx) +MJ. Patient very sleepy on initial exam. She has returned to baseline 05/18 afternoon. -Neuro c/s: very low suspicion for seizures based on the description of the events, and it would be unlikely for an adult to develop absence seizures at this age; EEG 05/16/2019 normal Instructed in the setting of recurrent episodes - Do not drive for 6 months (this is [place] law) - Do not work over an open flame - Do not swim alone or take baths - Do not climb ladders. - Avoid activities that may cause severe injury if you have another episode, such has holding knives or young children. -Discussion with pain medicine: in agreement with decreasing medications; suggested changing to a longer acting benzodiazepine -Unable to speak directly with psychiatrist, but visit notes reviewed. Lamictal level 8.6 (about 24hr after previous dose). Continue home Lamictal and Prozac. Titrate as follows - decrease xanax to 1 BID PRN from QID prn. - baclofen to 5 TID from 10 TID - continue MSER, hold MSIR. - acetaminophen ordered for prn pain meds Ucx: Group B strep -keflex prescription provided Assessment & Plan (05/18/2019 12:28 AM COST CONTROL SUPERVISOR): - patient presents with 2nd episode of syncope and AMS in the past month. Ddx for this is polypharmacy vs seizure vs undiagnosed ARYA (body habitus not entirely c/w this and patient denies every being told she snores) vs less likely infection (UA dirty but 3+ LE and 3+ bacteria, patient asymptomatic). - patient yawning > 10 times during my exam, remarks that she is very tired. She also has been avoiding driving volitionally, getting assistance from [place] or delaying taking meds when she knows she has to drive. Patient probably aware of some degree of AMS when she takes these meds. - will need formal consult to neuro in am to r/o seizures, as well as psych and pain management to help with medication adjustment. - pending that, will titrate as follows - decrease xanax to 1 BID PRN from QID prn. - baclofen to 5 TID from 10 TID - continue MSER, hold MSIR. - acetaminophen ordered for prn pain meds - f/u Ucx, though low suspicion for UTI Weight loss, unintentional 05/18/2019 Assessment & Plan (05/19/2019 4:13 PM COST CONTROL SUPERVISOR): Patient endorses '50lb' weight loss in last 6months, unintentional. Per chart review: 04/2017 176lb; 02/2019 167lb; 05/2019 156lb. (20lbs in 2yrs) -TSH wnl, HIV neg, HepC neg Right foot sprain, initial encounter 01/17/2019 DDD (degenerative disc disease), cervical 2017 Chronic pain syndrome 03/13/2018 Assessment & Plan (05/18/2019 6:37 PM COST CONTROL SUPERVISOR): - titrating pain meds as above Assessment & Plan (05/18/2019 12:27 AM COST CONTROL SUPERVISOR): - titrating pain meds as above - pain management c/s in am Cervical radiculopathy 03/13/2018 Sacroiliitis 08/03/2017 Trochanteric bursitis 05/08/2015 Other long chain beamer (current) drug therapy 4 Arthralgia of hip 09/24/2013 Lumbar radiculopathy 02/26/2013 Postlaminectomy syndrome of lumbar region 2012 Chronic pain 08/03/2012 Knee pain 08/03/2012 Fibromyalgia 03/20/2012 Impingement syndrome of both shoulders 2 Arthralgia of shoulder 03/16/2012 Osteoarthritis of shoulder 04/08/2011 Surgical History Surgery Date Site/Laterality Comments OTHER SURGICAL HISTORY Three neck fusions SECTION section CARPAL TUNNEL RELEASE Carpal tunnel release SECTION SPINAL FUSION CERVICAL FUSION Medical History Medical History Date Comments Hx Other Medical Back Pain Depression Depression Gout Gout Hx Other Medical Headache, migra ine Hx Other Medical Multiple Neck F usions Hx Other Medical back fusion Hx Other Medical tendonitous on left arm Hx Other Medical appendix Lower back pain Chronic pain Bipolar 1 disorder (HCC) Fibromyalgia Fibromyalgia, primary Arthritis Family History Medical History Relation Name Comments Cancer Other 1 Cancer -; Diabetes Other 2 Diabetes [facility]; Cancer Other 3 Family history of Cancer, unknown; Alcohol abuse Other 4 Family history of Alcoholism; Gout Other 5 Family history of Gout; Mental illness Other 6 Family histor y of Mental illness; Seizures Other 7 Family history of Seizure disorder; Stroke Other 8 Family history of Stroke; Heart disease Other 9 Family history of heart problems; Lung disease Other 10 Family history of lung problems; Diabetes Sister Diabetes mellit us; Relation Name Status Comments Other 1 Other 2 Other 3 Other 4 Other 5 Other 6 Other 7 Other 8 Other 9 Other 10 Sister Social History Tobacco Use Types Packs/Day Years Used Date Smoking Tobacco: Some Days Cigarettes Smokeless Tobacco: Never Tobacco Cessation:Counseling Given: Yes Alcohol Use Standard Drinks/Week Comments No 0 (1 standard drink = 0.6 oz pur e alcohol) Personal Safety Answer Date Recorded Have you ever been in or are you currently in a harmful physical or emotional relationship or is someone making you feel afraid or unsafe? Denies 08/19/2023 Comments No Sex and Gender Information Value Date Recorded Sex Assigned at Not on file Legal Sex Female 12:12 AM COST CONTROL SUPERVISOR Gender Identity Not on file Sexual Orientation Not on file Obstetrics History Last Filed Vital Signs Vital Sign Reading Time Taken Comments Blood Pressure 97/67 08/19/2023 10:56 PM CDT Pulse 62 08/19/2023 10:56 PM CDT Temperature 36.1 C (97 F) 08/19/2023 8:17 PM CDT Respiratory Rate 16 08/19/2023 10:56 PM CDT Oxygen Saturation 96% 08/19/2023 10:56 PM CDT Inhaled Oxygen Concentration - - Weight 72.6 kg (160 lb 0.9 oz) 08/19/2023 8:17 P M CDT Height 154.9 cm (5' 0.98) 08/19/2023 8:17 PM CD T Body Mass Index 30.26 08/19/2023 8:17 PM CDT Plan of Treatment Health Maintenance Due Date Last Done Comments Cervical Cancer Screening 1979 Colon Cancer Screening-Colonoscopy 1979 Depression Screening 1979 Varicella Vaccines (1 of 2 - 13+ 2-dose series) 06/22/1992 Hepatitis B Screening 06/22/1997 Regular Well Visit/Exam 18-64 06/22/1997 Pneumococcal vaccine <65 (1 of 2 - PCV) 06/22/1998 Breast Cancer Screening-Mammogram 07/17/2021 07/17/2020 Influenza Vaccine (Season Ended) 2024 DTaP/Tdap/Td Vaccine (3 - Td or Tdap) 11/17/2030 11/17/2020, 10/26/2018 Hepatitis C Screening Completed 05/18/2019 HPV Vaccines Aged Out No longer eligi ble based on patient's age to complete this topic Goals Goal Patient Goal Type Associated Problems Recent Progress Patient-Stated? Author CCM Chronic Pain Care Plan Chronic Care Management No Sumaya Disla V. RN Note: Problem: Chronic Pain Goals: 1. Minimize further functional decline 2. Maximize quality of life 3. Control pain Strategies: - Activity/exercise program recommendation - Conservative stepwise pain medicine strategy with multi-disciplinary approach - Recommend healthy lifestyle strategies and compensatory methods as needed Reduce the likelihood of falling Lifestyle No Jessica Santos, RN Note: Below are four things you can do to prevent falls: 1. Begin an exercise program to improve your leg strength & balance 2. Ask your doctor or pharmacist to review your medicines 3. Get annual eye check-ups & update your eyeglasses 4. Make your home safer by: Removing clutter & tripping hazards Putting railings on all stairs & adding grab bars in the bathroom Having good lighting, especially on stairs Contact your local community or [facility] for information on exercise, fall prevention programs, or options for improving home safety. Medical Devices Implanted Type Area Natural Gas Inspector Device Identifier Shelf Expiration Date Model / Serial / Lot Plate- 5 Implanted:03/28 by Radu Vieira MD (Quantity not on file) Plate N/A: Cervical-T horacic Spine Screw- 9 Implanted:03/28 by Van Flores MD (Quantity not on file) Screw N/A: Lumbar-Sac ral Spine Procedures Procedure Name Priority Date/Time Associated Diagnosis Comments SCREENING MAMMOGRAM BILATERAL W FARRUKH Schedule Routine, Read Routine (OP Routine) 07/17/2020 10:20 AM CDT Encounter for screening mammogram for malignant neoplasm of breast HEPATITIS C ANTIBODY Routine 05/18/2019 10:31 PM COST CONTROL SUPERVISOR from Last 3 Months or Most Recently Relevant to Health Maintenance Results * Screening Mammogram Bilateral W Farrukh (07/17/2020 10:20 AM CDT) Anatomical Region Laterality Modality Breast Bilateral Mammography Narrative 07/21/2020 3:03 PM CDT Mammogram Technique: Bilateral Digital Breast Tomosynthesis, Bilateral C-view 2D Screening mammogram. Views obtained: bilateral craniocaudal and bilateral mediolateral oblique. Computer Aided Detection was performed. Mammogram Findings: This is a baseline study. There are scattered areas of fibroglandular density. There are calcifications in both breasts. Impression: Calcifications in both breasts are benign. Annual screening mammography is recommended. OVERALL FINAL ASSESSMENT: BI-RADS CATEGORY 2: Benign. Procedure Note Carmella Duval MD - 07/21/2020 Mammogram Technique: Bilateral Digital Breast Tomosynthesis, Bilateral C-view 2D Screening mammogram. Views obtained: bilateral craniocaudal and bilateral mediolateral oblique. Computer Aided Detection was performed. Mammogram Findings: This is a baseline study. There are scattered areas of fibroglandular density. There are calcifications in both breasts. Impression: Calcifications in both breasts are benign. Annual screening mammography is recommended. OVERALL FINAL ASSESSMENT: BI-RADS CATEGORY 2: Benign. Self Screening Mammogram IMG MAMMO PROCEDURES Fi nal Result * Hepatitis C antibody (05/18/2019 10:31 PM COST CONTROL SUPERVISOR) Hep C Ab Nonreactive Nonreactive JOSE C RING Comment: Interpretive Data Positive results should be confirmed by a molecular method. If positive, a second separately collected sample should be submitted for Hepatitis C Virus (HCV) RNA Detection and Quantitation by Real-Time Reverse Adult Manager-PCR (RT-PCR). Current interpretive data was last revised on 2016. Blood specimen (specimen) 05/18/2019 10:31 PM COST CONTROL SUPERVISOR 05/18/2019 10:57 PM COST CONTROL SUPERVISOR Kimberli Lucio MD LAB MICROBIO LOGY - GENERAL ORDERABLES Edited Result - Final [facility] Department [place] [address] from Last 3 Months or Most Recently Relevant to Health Maintenance Insurance IDPA [facility] MEDICARE [facility] MEDICARE HMO MANAGED MEDICARE GENERIC RISK OTHER [facility] IDPA [facility] MEDICARE HMO [facility] MEDICARE GENERIC RISK OTHER [employer] MEDICARE HMO Advance Directives For more information, please contact: [phone] * Full Code (Latest Code Status on File) Date Activated Date Inactivated Comments 05/18/2019 5:08 PM 05/19/2019 6:25 PM Care Teams Padded Box Sewer Relationship Specialty Start Date End Date Shaka Poe MD PCP - General 08/10/21
--- OUTSIDE RECORDS SUMMARY | 2024-09-25 11:43 | XMS_ITS | Data Portability ---
Author Organization [facility]RISEnedina Address [address] [place] [address] Assessment No assessment recorded. Plan of Treatment Reminders Order Date Submit Date Provider Last Modified By Organization Details Last Modified Time Details Appointments None recorded. Lab CBC w/ auto diff 2019 020 [facility], [address] [place] [address], [address], 0 10:39:25 TSH, ultra-sens itive, serum 2019 020 [facility], [address] [place] [address], [address], 0 10:39:40 lipid panel, serum 2019 020 [facility], [address] [place] [address] [address], [address], 0 10:39:40 CMP, serum or plasma 2019 020 [facility], [address] [place] [address] 2, [place], [address], 0 10:39:40 Referral None recorded. Procedures None recorded. Surgeries None recorded. Imaging None recorded. Medication Orders Zofran 4 mg tablet 2020 021 [id number], [address] [place], [address], 1 13:13:32 baclofen 20 mg tablet 2020 021 [id number], [address] [place], [address], 1 16:07:43 baclofen 10 mg tablet 2019 020 [id number], [address] [place], [address], 1 16:04:44 famotidine 40 mg tablet 2019 020 [id number], [address] [place], [address], 0 10:19:50 atorvastat in 20 mg tablet 2019 020 [id number], [address] [place], [address], 0 10:39:25 Patient TargetsNo targets recorded. Patient Instructions Encounter Date Encounter Id Patient Instructions Last Modified By Organization Details Last Modified Time 11/01/2019 [id number] keep f/u nsuthan Not available 10/31 12:53:52 11/15/2019 [id number] pt to do labs in 2 month f/u in 4 month nsuthan Not available 11/15/2019 10:41:33 03/18/2020 [id number] f/u in 4 month p t to do labs nsuthan Not available 03/18/2020 10:20:38 07/01/2020 [id number] keep f/u nsuthan Not available 07/01 16:07:22 08/04/2020 [id number] keep f/u nsuthan Not available 08/04 10:10:08 Reason for Referral None Reported. Results Created Date Observation Date Name Description Value Unit Range Abnormal Flag Note LastModifiedBy Organization Detail LastModifiedTime 07/01/[address], lumba r spine , w/o contr ast No observ ation record ed. nsuthan Not Available 2020 16:14:30 07/22/19 21 07/17/2020 MAMMO , scree valeriy, digit al, bilat eral No observ ation record ed. danny [facility] [place] [place] [address], [place], [address], 07/22/2020 09:46:38 Result Notes None recorded. Problems Name Problem SNOMED Code Status Onset Date Resolution Date Notes Provider Name and Address Organization Details Recorded Time Mixed anxiety and depressive disorder 261953165 Active 2018 sees psych WENDY Schumacher, [place] - [facility] 0 09:52:30 Smoker 63489719 Active 2018 Ana Holder [place] null, [place] [facility] 0 09:52:30 Psoriasis 3144113 Active 2018 sees rheumatolo gist /WENDY [place], [place] - [facility] 0 09:52:30 Chronic pain syndrome 472309915 Active 2018 DDD of spine -s/p fusion 06-sees pain mx /Dr.Dave Ana Holder [place] null, [place] - [facility] 0 09:52:30 Fibromyalg ia 193268619 Active 2018 Ana [place] [facility] 0 09:52:30 Bipolar disorder 36392753 Active 2018 sees psych /WENDY [place]vin, [place] - [facility] 0 09:52:30 Irritable bowel syndrome with diarrhea 922982351 Active 2018 Ana [place], [place] [facility] 0 09:52:30 Pain in right knee Active 2019 Min Herrera MD Attn: Drew g,[address] [facility], [place], [address], [place] - [facility] 0 10:35:22 Hyperlipid emia 02145129 Active 2019 Min Herrera MD Attn: Drew g,[address] [facility], [place], [address], [place] [facility] 0 10:38:20 Low back pain 363414061 Active 2020 CT 06/2020- severe spondylosi s ( h/o fusion) Min Herrera MD Attn: Drew fritz,[address] , [place], [address] [place] - [facility] 1 16:16:01 Problem Notes None recorded. Procedures Surgical History Date Name Laterality Status Provider Name and Address Organization Details Recorded Time Arthrd ant jatinder/xoral c1-c2 completed Ana Holder PA - [facility] 04/13/2018 14:23:31 Other completed Ana Holder PA - [facility] 019 14:24:16 fusion completed Ana Holder PA - [facility] 14:24:34 Other completed Ana Holder PA - [facility] 14:25:02 delivery completed Ana Holder PA - [facility] 04/13/2018 14:25:34 Other completed Ana Holder PA - [facility] 14:26:46 Imaging Results None recorded. Procedure Notes None recorded. Medical Equipment None Reported. Allergies Allergen ID Allergen Name Allergen Category Reaction Reaction Severity Criticality Documentation Date Start Date Code Code System Note Provider Name and Address Organization Details Recorded Time 036520 Product containin g penicilli n (product) medicatio n Not available Not available Not available 04/13/2018 20485 8001 SNOMED Analuma [place] null, [place] - [facility] 9 14:13:04 124272 Levaquin medicatio n Not available Not available Not available 04/13/2018 77552 2 RxNorm Ana Glory null, [place] - [facility] 9 14:13:14 121338 Vioxx medicatio n Not available Not available Not available 04/13/2018 10643 9 RxNorm [place] null, [place] [facility] 9 14:13:25 002039 Zoloft medicatio n Not available Not available Not available 04/13/2018 77662 RxNorm Aan [place], [place] - [facility] 9 14:13:32 084202 Paxil medicatio n Not available Not available Not available 04/13/2018 77694 8 RxNorm Ana [place] null, [place] - [facility] 9 14:13:38 Medications Name Sig Start Date Stop Date Status Note LastModified by Organization Details LastModified Time quetiapin e 25 mg tablet TAKE 1 TO 2 TABLETS BY MOUTH AT BEDTIME active Not Available Not Available No t Available cyclobenz aprine 10 mg tablet 05/10 completed Not Available Not Available Not Available prednison e 10 mg tablet 05/10 completed Not Available Not Available Not Available doxycycli ne hyclate 100 mg capsule 07/01 completed Not Available Not Available Not Available atorvasta tin 20 mg tablet TAKE 1 TABLET BY MOUTH EVERY DAY active Not Available Not Available No t Available lamotrigi ne 200 mg tablet TAKE 2 TABLETS BY MOUTH EVERY DAY active Not Available Not Available No t Available clindamyc in HCl 300 mg capsule TAKE 1 CAPSULE BY MOUTH EVERY 8 HOURS FOR 10 DAYS. active Not Available Not Available No t Available azithromy eldon 250 mg tablet TAKE 2 TABLETS (500 MG) BY ORAL ROUTE ONCE DAILY FOR 1 DAY THEN 1 TABLET (250 MG) BY ORAL ROUTE ONCE DAILY FOR 4 DAYS 05/10 completed Not Available Not Available Not Available alprazola m 1 mg tablet Take 1 tablet 4 times a day by oral route for 30 days. 11/14 completed psych--- reduced to bid per ER Not Available Not Available Not Available Lidocaine Viscous 2 % mucosal solution 10/23 completed Not Available Not Available Not Available tizanidin e 4 mg tablet pain mx 05/10 completed Not Available Not Available Not Available cimetidin e 400 mg tablet Take 1 tablet twice a day by oral route. 2019 active Not Available Not Available Not Avai lable cephalexi n 250 mg capsule for UTI 10/23 completed Not Available Not Available Not Available hydrocodo ne 5 mg-acetam inophen 325 mg tablet pa 03/18 completed pain mx, Not taking Not Available Not Available Not Available metronida zole 0.75 % (37.5 mg/5 gram) vaginal gel active Not Available Not Available Not Available ondansetr on HCl 4 mg tablet TAKE 1 TABLET 3 TIMES A DAY BY ORAL ROUTE NEEDED FOR 5 DAYS. 10/27 completed Not Available Not Available Not Available famotidin e 40 mg tablet TAKE 1 TABLET BY MOUTH TWICE A DAY active Not Available Not Available No t Available prednison e 20 mg tablet TAKE ONE TABLET BY MOUTH DAILY FOR FIVE DAYS active Not Available Not Available No t Available prednison e 5 mg tablet rheumat 09/13 completed Not Available Not Available Not Available methylpre dnisolone 4 mg tablet 05/10 completed Not Available Not Available Not Available clindamyc in HCl 150 mg capsule 10/23 completed Not Available Not Available Not Available sulindac 150 mg tablet 05/24 completed not taking Not Available Not Available Not Available leflunomi de 10 mg tablet 05/10 completed Not Available Not Available Not Available morphine ER 30 mg tablet,ex tended release 04/13 completed Not Available Not Available Not Available leflunomi de 20 mg tablet rheumato logist 05/10 completed Not Available Not Available Not Available tramadol 50 mg tablet TAKE ONE TABLET BY MOUTH EVERY EIGHT HOURS NEEDED FOR PAIN FOR UP TO THREE DAYS active Not Available Not Available No t Available baclofen 20 mg tablet TAKE 1 TABLET BY MOUTH TWICE A DAY active Not Available Not Available No t Available meloxicam 7.5 mg tablet 04/13 completed Not Available Not Available Not Available alprazola m 0.5 mg tablet TAKE 1 TABLET BY MOUTH FOUR TIMES A DAY active Not Available Not Available No t Available methotrex ate sodium 2.5 mg tablet 04/13 completed Not Available Not Available Not Available dicyclomi ne 20 mg tablet TAKE 1 TABLET BY MOUTH TWICE A DAY active Not Available Not Available No t Available baclofen 10 mg tablet TAKE 1 TABLET BY MOUTH THREE TIMES A DAY 07/01 completed Not Available Not Available Not Available cephalexi n 500 mg capsule 07/01 completed Not Available Not Available Not Available ranitidin e 150 mg tablet take one tablet twice a day by mouth 10/23 completed Not Available Not Available Not Available lidocaine 5 % topical patch active Not Available Not Available Not Available folic acid 1 mg tablet TAKE 2 TABLETS BY MOUTH EVERY DAY active Not Available Not Available No t Available morphine ER 15 mg tablet,ex tended release tid per pain mx 10/23 completed Not Available Not Available Not Available alprazola m 2 mg tablet 04/13 completed Not Available Not Available Not Available methylpre dnisolone 4 mg tablets in a dose pack TAKE 6 TABLETS ON DAY 1 DIRECTED ON PACKAGE AND DECREASE BY 1 TAB EACH DAY FOR A TOTAL OF 6 DAYS active Not Available Not Available No t Available albuterol sulfate HFA 90 mcg/actua tion aerosol inhaler INHALE 2 PUFFS BY MOUTH TWICE DAILY (NEED FOLLOW-U P WITH MD) active Not Available Not Available No t Available morphine 15 mg immediate release tablet qid per pain mx 11/14 completed Stopped by [facility] Not Available Not Available Not Available methylpre dnisolone 16 mg tablet TAKE 1 TABLET BY MOUTH EVERY DAY 07/01 completed Not Available Not Available Not Available ondansetr on 4 mg disintegr ating tablet 05/10 completed Not Available Not Available Not Available fluoxetin e 20 mg capsule psych active Not Available Not Available Not Available doxycycli ne hyclate 100 mg tablet 04/13 completed Not Available Not Available Not Available naproxen 500 mg tablet 05/10 completed Not Available Not Available Not Available azithromy eldon 1 gram oral packet 07/01 completed Not Available Not Available Not Available buspirone 15 mg tablet psych 09/13 completed Not Available Not Available Not Available aripipraz ole 10 mg tablet TAKE 1 TABLET BY MOUTH EVERY DAY 08/04 completed Not Available Not Available Not Available aripipraz ole 15 mg tablet TAKE 1 TABLET BY MOUTH EVERY DAY active Not Available Not Available No t Available aripipraz ole 5 mg tablet TAKE 1 TABLET BY MOUTH EVERY DAY 08/04 completed Not Available Not Available Not Available nitrofura ntoin monohydra te/macroc rystals 100 mg capsule 05/10 completed Not Available Not Available Not Available duloxetin e 30 mg capsule,d elayed release 03/18 completed not taking Not Available Not Available Not Available duloxetin e 60 mg capsule,d elayed release Take 1 capsule every day by oral route. 03/18 completed not taking Not Available Not Available Not Available Humira Pen 05/10 completed 40mg every other week Not Available Not Available Not Available Lovaza 1 gram capsule active Not Available Not Available Not Available Cimzia 400 mg/2 mL (200 mg/mL x 2) subcutane ous syringe kit Inject 2 mL every 2 weeks by subcutan eous route. active Not Available Not Available No t Available Zorvolex 35 mg capsule Take 1 capsule twice a day by oral route. 05/10 completed pain mx Not Available Not Available Not Available Rexulti 1 mg tablet TAKE 1 TABLET BY MOUTH EVERY DAY active Not Available Not Available No t Available Rexulti 2 mg tablet TAKE 1 TABLET BY MOUTH EVERY DAY active Not Available Not Available No t Available Narcan 4 mg/actuat ion nasal spray active Not Available Not Available Not Available baclofen 5 mg tablet active Not Available Not Available Not Available Vitals Date Recorded Body height Provider Name an d Address Organization Details Last Updated DateTime 07/01/2020 157.48 cm Ana Holder MA [facility] 07/02/19 21 15:51:45 Date Recorded Body height Provider Name an d Address Organization Details Last Updated DateTime 08/04/2020 157.48 cm Ana Holder MA [facility] 08/05/19 21 09:55:09 Date Recorded Body height Body mass index (BMI) Body weight Heart rate Respiratory rate Body temperature Oxygen saturation Oxygen saturation in Arterial blood by Pulse oximetry Systolic blood pressure Diastolic blood pressure Provider Name and Address Organization Details Last Updated DateTime 0 157.48 cm 26.6 kg/m2 15518.9 7 g 112 /min 14 /min 98.1 [degF] 99 % 99 % 122 mm[Hg] 78 mm[Hg] Ana Holder MA [facility] 0 12:27:44 Date Recorded Body height Provider Name an Address Organization Details Last Updated DateTime 11/15/2019 157.48 cm Ana Holder MA [facility] 11/15/19 20 09:45:15 Date Recorded Body height Provider Name an d Address Organization Details Last Updated DateTime 03/18/2020 157.48 cm Ana Holder MA [facility] 03/18/20 20 10:07:38 Social History Question Answer Notes LastModified by Organizat ion Details LastModified Time Tobacco Smoking Status Current Every Day [facility] 15:56:22 Do You Have An Advance Directive? No Information not available 07/01/2020 Are You Blind Or Do You Have Difficulty Seeing? No Glasses Information not available 07/01/2020 What Is Your Level Of Caffeine Consumption? Moderate Information not available 04/13/2018 How Much Tobacco Do You Chew? None Information not available 04/13/2018 In The 14 Days Before Symptom Onset, Have You Had Close Contact With A Laboratory-confir med COVID-19 While That Case Was Ill? No Information not available 10/24/2019 In The 14 Days Before Symptom Onset, Have You Had Close Contact With A Person Who Is Under Investigation For COVID-19 While That Person Was Ill? No Information not available 10/24/2019 Have You Been To An Area Known To Be High Risk For COVID-19? No Information not available 10/24/2019 Are You Deaf Or Do You Have Serious Difficulty Hearing? No Information not available 07/01/2020 What Type Of Diet Are You Following? REGULAR Information not available 04/13/2018 Which Illicit Or Recreational Drugs Have You Used? Denies Information not available 04/13/2018 Education 12 Information no t available 04/13/2018 What Is The Highest Grade Or Level Of School You Have Completed Or The Highest Degree You Have Received? [id number] Information not available 07/01/2020 Are There Any Guns Present In Your Home? No Information not available 09/13/2018 Marital Status Informatio n not available 04/13/2018 What Was The Date Of Your Most Recent Tobacco Screening? 08/04/2020 Information not available 08/04/2020 Performs Monthly Self-breast Exam? Yes Information no t available 10/24/2019 What Is Your Relationship Status? Information not available 07/01/2020 Do You Use Your Seat Belt Or Car Seat Routinely? Yes Information not available 07/01/2020 Seat Belts Used Routinely Yes Information not available 09/13/2018 Smoke Alarm In Home Yes Information not available 05/10/2019 Do You Have Smoke And Carbon Monoxide Detectors In Your Home? Yes Information not available 07/01/2020 At What Age Did You Start Smoking Tobacco? 14 Information not available 04/13/2018 How Much Tobacco Do You Smoke? 0.5 PPD Or Less Information not available 07/01/2020 General Stress Level High Med - High Information not available 10/24/2019 Do You Use Sunscreen Routinely? Yes Information not available 09/13/2018 Sex: Female Functional Status Question Answer Note LastModified by Organizat ion Details LastModified Time Do you use any illicit or recreational drugs? No Information not available 07/01/2020 Do you or have you ever used any other forms of tobacco or nicotine? No Information not available 07/01/2020 What is your level of alcohol consumption? None Information not available 04/13/2018 Do you or have you ever used smokeless tobacco? Never used smokeless tobacco Information not available 05/10/2019 Are you currently employed? No Information not available 07/01/2020 Are you able to care for yourself? Yes has a PA Information not available 07/01/2020 What is your occupation? Disability Information not available 04/13/2018 Do you or have you ever used e-cigarettes or vape? Never used electronic cigarettes 5 % nicotine, quit 04/2019 tried it Information not available 07/01/2020 What is your exercise level? None walk Information not available 10/24/2019 Mental Status Question Answer Note LastModified by Organization D etails LastModified Time Do you feel stressed (tense, restless, nervous, or anxious, or unable to sleep at night)? [id number] Information not available 07/01/2020 Family History Relationship Description Onset Age of this Age Resolved Age Notes LastModified by Organization Details LastModified Time Father Diabetes mellitus Not available 2018 14:20:55 Father Malignant neoplasm of prostate Not available 2018 14:21:47 Mother Diabetes mellitus Not available 2018 14:20:55 Sister Diabetes mellitus Not available 2018 14:21:03 Brother Attention deficit hyperactivit y disorder Not available 04/13 14:21:14 Brother Mental retardation Not available 06/2018 14:21:23 Medical History Condition Response Coronary Artery Disease N Other N High Blood Pressure N Atrial Fibrillation N Kidney or Bladder Problems N Thyroid Problems N GI Problems N Depression Y COPD N Blood Clots N Skin Problems N Anemia N Heart Attack ([place]) N Anxiety Disorder Y Diabetes N Muscle, Joint, or Bone Problems Y Seizures/Epilepsy N Acid Reflux (GERD) N Cancer N Stroke N Asthma N Allergies Y High Cholesterol N Hepatitis N Liver Disease N Headaches Y Heart Failure N Osteoporosis N Gynecological HistoryNo gynecological history recorded. Obstetrics History GPAL:G 0 P 0 0 0 0 Immunizations Vaccine Type Date Status Note Provider Nam e and Address Organization Details Recorded Time SARS-COV-2 (COVID-19) vaccine, UNSPECIFIED 1 completed Ana Holder MA [facility], [place] - [facility] 08/04/2020 09:59:03 Tdap 9 completed Not Available [facility] 04/28/2019 02:46:42 Past Encounters Encounter ID Performer Location Encounter Start Date Encounter Closed Date Diagnosis/Indication Diagnosis SNOMED-CT Code Diagnosis ICD10 Code Diagnosis Note [id number] [facility] [address] [place] [address] 04/13/2018 14:00:07 04/13/2018 17:30:44 Chronic pain syndrome 313202377 G89.4 with fibromyalg ia / with h/o fusion of cervical and lumbar spinept is on morphine per pain mx Bipolar disorder 2566686 4 F31.9 with anxiety/de pressionme ds including xanax per psychiatri st Smoker 91971251 F17.200 Psoriasis 3924615 L40.9 pt has psoriatic arthritisp t is on leflunomid e per rheumatolo gist [id number] Min Herrera MD [facility] (Adult Med) [address] [place] [address] 05/10/2018 10:51:34 05/10/2018 14:39:44 Irritable bowel syndrome with diarrhea 747220677 K58.0 possibly due to stress -pt is seeing psychiatri st who increased her prozac recently per ptpt to continue ranitidine Add dicyclomin e bidconside r GI referral if problem worsen [id number] MD Tracie [facility]to (Adult Med) [address] [place] [address] 09/13/2018 11:53:26 09/14/2018 12:35:31 Smoker 34475599 F17.200 Acute bronchitis 5908122 2 J20.9 keep good hydration Pain of mu ltiple joints 24793713 M25.50 wrist pain/ankle pain with mild swellingpt sees rheumatolo gist Tachycardia 9741197 R00. 0 possibly due to #1pt is asymptomat icwill reassess [id number] MD Shimon Lundy (Adult Med) [address] [place] [address] 10/26/2018 10:56:57 10/27/2018 09:04:24 Chronic pain syndrome 461703335 G89.4 with fibromyalg ia / with h/o fusion of cervical and lumbar spinept is on morphine per pain mx Bipolar disorder 8613384 4 F31.9 with anxiety/de pressionme ds including xanax per psychiatri st Psoriasis 4401878 L40.9 pt has psoriatic arthritisp t is on leflunomid e per rheumatolo gist Smoker 68874483 F17.200 Irritable bowel syndrome with diarrhea 621035150 K58.0 stablept to continue ranitidine /dicyclomi ne bid Administra tion of diphtheria, pertussis, and tetanus vaccine 682905532 Z23 [id number] [facility] [address] [place] [address] 05/10/2019 10:57:00 05/11/2019 11:10:29 Irritable bowel syndrome with diarrhea 842886880 K58.0 stablept to continue dicyclomin e bid .change ranitidne to cimetidine due to recall Chronic pain syndrome 37 1395681 G89.4 with fibromyalg ia / with h/o fusion of cervical and lumbar spinept is on morphine per pain mx .pt is ging to see neurosurge on for possible sx on 05/25/2019 Bipolar disorder 5646482 4 F31.9 with anxiety/de pressionme ds including xanax per psychiatri st Psoriasis 0582890 L40.9 pt has psoriatic arthritisp t is on cimzia injection per rheumatolo gist Smoker 01518925 F17.200 Hyperlipid emia screening 428615325 Z13.534 [id number] MD Shimon Lundy (Adult Med) [address] [place] [address] 05/24/2019 09:32:09 05/25/2019 14:31:54 History of syncope 3713174962 94802 Z86.79 due to polypharma cypt was evaluated by neuro and had normal EEG at the hospital.x anax and morphine and baclofen reduced -pt has apt to see pain mx and psych to discuss about her meds. [facility] of poly[facility] 069844938 Z91.89 pt has apt with pain mx tomorrow and with psychiatri st next wk to discuss about lowering morphine and xanax. [id number] MD Tracie [facility] (Adult Med) [address] [place] [address] 10/24/2019 08:39:58 10/25/2019 12:03:19 Pain in right knee 2957354312 52717 M25.561 with pain in lower leg with swellingel evate legs / move legsDiscus sed about precaution s to prevent DVT [id number] MD Shimon Lundy (Adult Med) [address] [place] [address] 11/01/2019 12:14:45 11/02/2019 09:18:04 Pain in right lower limb 362763210 M79.604 with foot pain .pt to continue to do home exercisesp t is reassured [id number] MD [facility]ac[facility] (Adult Med) [address] [place] [address] 11/15/2019 08:11:12 11/19/2019 16:47:05 Chronic pain syndrome 233963733 G89.4 with fibromyalg ia / with h/o fusion of cervical and lumbar spinept is on morphine per pain mx .pt is going to see neurosurge on for possible sx per pt . Bipolar disorder 0673108 4 F31.9 with anxiety/de pressionme ds including xanax ( dose reduced ) per psychiatri st Hyperlipidemia 09209289 E78.5 pt to continue statin Pain in right knee 08926 57748 19493 M25.561 with pain in lower leg with swellingel evate legs / move legspt is seeing ortho and going for PT. Irritable bowel syndrome with diarrhea 102824675 K58.0 stablept to continue dicyclomin e bid . [id number] [facility] [address] [place] [address] 03/18/2020 08:11:16 03/19/2020 13:30:39 Hyperlipidemia 68580053 E78.5 pt to continue statin Bipolar disorder 0025670 4 F31.9 with anxiety/de pressionme ds including xanax ( dose reduced ) per psychiatri st Chronic pain syndrome 37 0289889 G89.4 with fibromyalg ia / with h/o fusion of cervical and lumbar spinept is off of hydrocodon e/ morphine per pain mx .pt is going to see neurosurge on for possible sx per pt . Psoriasis 3739179 L40.9 pt has psoriatic arthritisp t is on cimzia injection per rheumatolo gist Irritable bowel syndrome with diarrhea 544046756 K58.0 stablept to continue dicyclomin e bid . Renewal of prescription 610615269 Z76.0 [id number] MD Tracie [facility] (Adult Med) [address] [place] [address] 07/01/2020 08:14:33 07/03/2020 14:44:34 Chronic pain syndrome 978475235 G89.4 with fibromyalg ia / with h/o fusion of cervical and lumbar spinept is off of hydrocodon e/ morphine per pain mx .pt is going to see neurosurge on for possible sx per pt . Low back pain [id number] M54.5 pt to increase baclofen 20mg bid pt to f/u with pain mx Bipolar disorder [id number] F31.9 with anxiety/de pression meds including xanax ( dose reduced ) per psychiatri st [id number] [facility] [address] [place] [address] 08/04/2020 09:15:10 08/05/2020 13:36:00 Nausea and vomiting [id number] R11.2 possibly due to indigestio n and IBS/pt to increase fluid and advised to eat soft diet / pt to go to ER if problem worsen or abdominal pain Health Concerns Section Related Observation LastModified by Organization Detai ls LastModified Time None Recorded Concern Status LastModified by Organization Details LastModified Time None Recorded Advance Directives Directive N: Payers Insurance Date Sequence Insurance Name Policy Number Policy Daily Covered Member ID Daily Member ID Guarantor Name 11/15/2019 3 *SELF PAY* Ro tristan Phan 10/20/2020 2 [place] Akua Phan [id number] Akua Phan 05/24/2019 [place] [facility] Akua Phan [id number] Akua Phan 04/13/2018 2 [place] Akua Phan [id number] Akua Phan 05/09/2018 [facility] [id number] Akua Phan [id number] Akua Phan 04/13/2018 1 [facility] [id number] Akua Phan [id number] Akua Phan 04/13/2018 1 [place] [facility] Akua Phan [id number] Akua Phan 05/24/2019 3 [place] [facility] [place] [facility] Akua Phan [id number] Akua Pahn 03/16/2021 1 [facility] [id number] Akua Phan [id number] Akua Phan 03/16/2021 [place] [facility] - [facility] Akua Phan [id number] Akua Phan 10/20/2020 3 [employer] (MEDICARE REPLACEMENT/A DVANTAGE - PPO) Akua Phan [id number] Akua Phan 05/10/2018 3 [employer] (PPO) [id number] Akua Phan [id number] Akua Phan Notes Date Note Type Note Provider Name and Address Organization Details Recorded Time 0 text/html KneeReported bypatient.Location:right Quality:aching Severity:moderate Duration:date of onset: (10/21/2019) Context:fall (accidentally fell in [facility] on 10/21/2019); pt went to ER two times and had xray -neg Associated Symptoms:swelling;ecchymosi s(better) Prior Imaging:x ray Min Herrera MD Attn: Accounting,[address] [facility], [place], [address], [facility] 11/01/2019 12:54:20 0 text/html HyperlipidemiaReported bypatient.Duration:new onset Prior Tests:highest LDL level: (160) Compliance:compliant Complications:no coronary artery disease Risk Factors:smokingKneeReported bypatient.Location:right Quality:aching Severity:moderate Duration:date of onset: (10/21/2019) Context:fall (accidentally fell in [facility] on 10/21/2019); pt went to ER two times and had xray -neg Associated Symptoms:swelling;ecchymosi s(better) Prior Imaging:x rayNotes:pt is seeing ortho and wearing boot -going for pT. Phone visit due to Covid-19. pt with chronic pain/ fibromyalgia and bipolar /depression . Pt is seeing pain max /director content marketing and psychiatrist , taking meds as prescribed. pt is hydrocodone and xanax which has been reduced . pt is off of morphine. Discussed about risks of dependency, tolerance and risks of taking with BZ .pt is feeling better on Dicyclomine for ibs , denied any bowel complaints . Mni Herrera MD Attn: Accounting,[address] [facility], [place], [address], [facility] 11/15/2019 13:49:56 0 text/html HyperlipidemiaReported bypatient.Duration:new onset Prior Tests:highest LDL level: (160) Compliance:compliant Complications:no coronary artery disease Risk Factors:smoking Phone visit due to Covid-19. pt with chronic pain/ fibromyalgia and bipolar /depression . Pt is seeing pain max /director content marketing and psychiatrist , taking meds as prescribed. pt is off of hydrocodone/ morphine . pt is on xanax which has been reduced .pt is feeling better on Dicyclomine for ibs , denied any bowel complaints . Min Herrera MD Attn: Accounting,[address] [facility], [place], [address], [facility] 03/18/2020 10:22:34 1 text/html Back PainReported bypatient.Location:pain radiating to the legs Severity:moderate (5-7) Duration:chronic Onset/Timing:recurrent episode Context:prior back problems Aggravating Factors:movement/positionin g Associated Symptoms:no feverNotes:pt went to ER , rxed with prednisone . pt is asking whether I can increase her baclofen. CT done in ER showed sever spondylosis with h/o fusion in the past . Phone visit due to Covid-19. pt with chronic pain/ fibromyalgia and bipolar /depression . Pt is seeing pain max /director content marketing and psychiatrist , taking meds as prescribed. pt is off of hydrocodone/ morphine . pt is on xanax which has been reduced . Min Herrera MD Attn: Accounting,[address] [place], [address], [facility] 07/01/2020 16:18:02 1 text/html VomitingReported bypatient.Quality:worsening Severity:moderate Duration:2 days Onset/Timing:acute Context:no one else with similar symptoms; no possible food sources; no recent travel Associated Symptoms:no abdominal pain; no fever; no diarrhea;excess gas(bloating) Phone visit due to Covid-19. pt with chronic pain/ fibromyalgia and bipolar /depression . Pt is seeing pain max /director content marketing and psychiatrist , taking meds as prescribed. pt is off of hydrocodone/ morphine . pt is on xanax which has been reduced . Min Herrrea MD Attn: Accounting,[address] [facility], [place], [address], [facility] 08/04/2020 10:11:02 OBGyn Episode No OBEpisode recorded.
--- OUTSIDE RECORDS SUMMARY | 2024-09-25 11:43 | XMS_ITS | Continuity of Care Document ---
Author Organization [facility] Address [address] [place] [address] [place] [address] Phone Care Team Providers Care Hospice Administrator Name Role Phone Anup Lowe MD Unavailable Unavailable Allergies, Adverse Reactions, Alerts Substance Reaction Status Criticality STREPTOCOCCUS Hives / Skin Rash Active No Inform ation PAROXETINE HCL Anaphylaxis Active No Informatio n SERTRALINE HCL Anaphylaxis Active No Informatio n meloxicam Trouble BreathingHives / Skin Rash Active No Information methotrexate Trouble BreathingHives / Skin Rash Active No Information levofloxacin Hives / Skin Rash Active No Informa tion rofecoxib Hives / Skin Rash Active No Informa tion Penicillins Active No Information Medications Medication Instructions Dosage Effective Dates (start - stop) Status Comments prednisone 20 mg tablet take 3 Tablet by oral route every day 60 MG - Active diclofenac 1 % topical gel apply (2G) by topical route 3 times every day to the affected area(s) 2 G - Active max 8 g/joint/day, up to 32 g/day total Qulipta 60 mg tablet take 1 tablet by oral route every day 60 MG - Active ropinirole 1 mg tablet take 1 tablet by oral route every bedtime 1 MG - Active Prozac 40 mg capsule take 2 capsule by oral route every day in the morning 80 MG - Active dicyclomine 20 mg tablet take 1 tablet by oral route 2 times every day 20 MG - Active hydroxyzine HCl 50 mg tablet take 1 tablet by oral route 3 times every day - Active Lamictal 200 mg tablet take 1 tablet by oral route 2 times every day 200 MG Mar-25-2025 - Active Lipitor 20 mg tablet take 1 Tablet by oral route every day 20 MG - Active Seroquel 200 mg tablet take 1 tablet by oral route every bedtime 200 MG - Active oxycodone 10 mg tablet take 1 tablet by oral route 3 times every day - Active methocarbamol 1,000 mg tablet take 1 tablet by oral route 4 times every day 1000 MG - Active Neurontin 100 mg capsule take 1 Capsule by oral route 3 times every day 100 MG - Active Procedures Procedure Date OFFICE/OUTPATIENT VISIT, [facility] OFFICE/OUTPATIENT VISIT, [facility] OFFICE/OUTPATIENT VISIT, [facility] OFFICE/OUTPATIENT VISIT, [facility] OFFICE/OUTPATIENT VISIT, [facility] Advance Directives Directive Yes / No Effective Date File Name No Information Encounters Encounter Description Practice Location Reason(s) For Visit Diagnoses Date Provider Providers Copied on Encounter OFFICE/OUTPA TIENT VISIT, [facility], [address] [place], [place], [id number], tel:[phone] [facility] iron1 (chief complaint) CUONG (chief complaint) tinnitus1 (chief complaint) Tinnitus, bilateralPain in jointIron deficiencyBunion of right foot Eligio- 5 Mynor Hebert. [address], [id number] , [place]. tel:[phone] OFFICE/OUTPA TIENT VISIT, [facility], [address] [place], [place], [id number], [place] tel:[phone] [facility] joint pani1 (chief complaint) Iron (chief complaint) foot pain1 (chief complaint) Iron deficiencyPain in jointBunion of right foot Eligio- 5 Lowe Anup. [address], [place], [place], [address] , [place]. tel:[phone] OFFICE/OUTPA TIENT VISIT, [facility], [address] [place], [id number], tel:[phone] [facility] wrist pain1 (chief complaint) migraine1 (chief complaint) RLS (chief complaint) Iron deficiencyRestless legs syndromeMigraine without aura, not intractable, without status migrainosusPain in right wrist 5 Mynor Hebert. [address], [place], [place], [address] , [place]. tel:[phone] OFFICE/OUTPA TIENT VISIT, [facility], [address] [place], [address], [place] tel:[phone] [facility] HLP (chief complaint) iron (chief complaint) joint pain1 (chief complaint) GERD1 (chief complaint) Encounter for oth screening for malignant neoplasm of breastIron deficiencyPain in jointThrombocytosis LeukocytosisMixed hyperlipidemiaHyper glycemiaRestless Legs SyndromeGERD w/o esophagitis 5 Mynor Lizama [address], [place], [place], [address] , [place]. tel:[phone] OFFICE/OUTPA TIENT VISIT, [facility], [address] [place], [address], [place] tel:[phone] [facility] chronic pain1 (chief complaint) anxiety1 (chief complaint) RLS (chief complaint) HLP (chief complaint) IBS1 (chief complaint) Generalized Anxiety DisorderMixed hyperlipidemiaRestl ess legs syndromeChronic pain syndromeIrritable bowel syndrome with diarrhea 5 Mynor Hebert. [address], [place], [place], [address] , [place]. tel:[phone] Family History Family Member Type Diagnosis Age At Onset Sister Problem type I DM Mother Problem Diabetes mellitus Father Problem type II DM Father Problem prostate ca Sister Problem diverticulitis Sister Problem of GI bleeding 41 Payers Payer name Insurance type Covered green party ID Authoriza tishu(s) [employer] [id number] Social History Type Description Quantity Date Captured Comments Alcohol Use Details No Caffeine Use Details Unknown Tobacco Use Status Moderate cigarette smoker (10-19 cigs/day) Smoking Status Heavy tobacco smoker Smoking Tobacco Use Details Cigarette: Age Started: 12, Years Used 31 Cigarette: 10 Cigarettes per day, Pack Year: 16 Sex Female Vital Signs Date / Time: Height Weight BMI Pulse Rate Blood Pressure Temperature Respiratory Rate Body Surface Area Head Circumference BMI percentile Pulse Ox Inhaled Ox 9:34 AM 61.75 in 159.20 lbs 29.3 6 kg/m eter (2) 87 /min 120/70 mm[Hg] 97.9 F 16 /min Chief Complaint And Reason For Visit From encounter dated '09/25/2024 09:26'. iron1 (chief complaint). Description: Pt has iron deficiency. Pt is seeing hematology and will do infusion soon pt has EGD and colonoscopy soon CUONG (chief complaint). Description: Pt has positive CUONG and joint pain. Pt sees rheumatology and she will do x rays of the joint and she has diagnosis of lupus and she will start medication soon tinnitus1 (chief complaint). Description: Pt c/o bilateral tinnitus intermittently for several weeks. Pt denies any ear pain Pt feels slightly off balanced during tinnitus episodes. Pt denies any sinus symptoms Pt states that tinnitus occurs on and off and not consistently. Pt denies any vertigo Plan Of Treatment Date Type Action Status Referral Referred To: [place], [address] [id number] Ordered: Referrals: Jerome Burris. Evaluate and treat ordered Referral Ordered: Hematology (related to Iron deficiency) ordered Referral Ordered: COLONOSCOPY AND BIOPSY ordered Referral Ordered: MAMMOGRAM, SCREENING ordered Referral Referred To: Mae Larson MD [address] [facility]
[address] [place], [place], [id number] Ordered: Referrals: Mae Larson MD. Evaluate and treat ordered Referral Ordered: Referrals: Hematology. Evaluate and treat ordered Appointment Akua Phan BOOKED History Of Present Illness Encounter Date Complaint History Of Prese nt Illness iron1 Pt has iron defi ciency. Pt is seeing hematology and will do infusion soon pt has EGD and colonoscopy soon CUONG Pt has positive CUONG and joint pain. Pt sees rheumatology and she will do x rays of the joint and she has diagnosis of lupus and she will start medication soon tinnitus1 Pt c/o bilateral tinnitus intermittently for several weeks. Pt denies any ear pain Pt feels slightly off balanced during tinnitus episodes. Pt denies any sinus symptoms Pt states that tinnitus occurs on and off and not consistently. Pt denies any vertigo foot pain1 Pt has bunion ri ght foot with chronic pain Pt denies any injury. Pt denies any foot numbness Iron Pt has low iron and she has luz with hematology tomorrow and EGD and colonoscopy scheduled in two months joint pani1 Pt has diffuse j oint pain with positive Cuong Pt has luz with rheumatology in one week. RLS Pt has RLS due t o low iron pt is on requip and doing ok. Pt is being referred to hematology for iron infusion migraine1 pt has chronic m igraine Pt is on qulipta for the past month which has been helping. pt c/o throbbing headache, with photophobia with nausea with headache. Pt used to have migraine daily and she only had 5-6 migraine during last month with qulipta. wrist pain1 Pt tried to black pickler something and bending over 3 days ago and she fell forward and injured her right wrist and ankle Pt went to ER and had negative right wrist and right ankle x ray and she was diagnosed with sprain of right ankle and wrist Pt was given splint HLP Pt has high chol esterol and high tG Pt is on lipitor iron Pt has low iron with chronic fatigue. Pt denies any bleeding. Pt denies any sob Pt has mildly high wbc and also high platelet. Pt has restless leg syndrome joint pain1 Pt has diffuse j oint pain and elevated CUONG, CRP, ESR. Pt denies any joint swelling GERD1 Pt has intermitt ent GERD. Pt denies any abd pain or early satiety, nausea vomiting, etc chronic pain1 Pt has chronic b ac and neck pain Pt has history of multiple Lumbar and neck fusion and she sees pain management currently and she is on oxycodone TID and she gets injection to back and neck but her pain is not well controlled. Pt wants new referral to pain management. Pt does have radiculopathy and sciatica Pt denies any loss of bowel or bladder control or saddle area paresthesia . Pt takes neurontin and robaxin as well. Pt states that all her joint hurts Pt wants to see rheumatology Pt has herminio getting injections to her knee and back and neck every two weeks Pt states that she feels that she has a lot of inflammation all over her body and shot and oxycodone are not helping with her pain RLS Pt has RLS Pt ta kes requip nightly and doing ok HLP Pt has HLP ,Pt t akes lipitor Pt denies any myalgia. IBS1 Pt has IBS-D. Pt is on dicyclomine and doing ok anxiety1 Pt has chronic a nxiety and depression and bipolar Pt takes prozac, hydroxyzine, lamictal and seroquel and doing ok. Pt denies any suicidal or homicidal thought Pt denies any crying spells. Instructions Date Instruction Additional Infor mation No Information Assessments Type Assessment Date assessment Tinnitus, bilateral assessment Pain in joint assessment Iron deficiency assessment Bunion of right foot Mental Status Date Cognitive Assessment Orientation - Al[place] ed to time, place, person, situation.
--- OUTSIDE RECORDS SUMMARY | 2024-09-25 11:43 | XMS_ITS | Referral Summary ---
Author Organization [facility] Address [address] [place] [address] Care Team Providers Care Clothing Patternmaker Name Role Phone Shaka Poe MD Primary Care Provider [phone] Allergies Active Allergy Reactions Criticality Noted Date [...] daily 30 tablet 5 05/19/19 20 Active [id number] 1 mg-25 mg-12.5 mg-1 mg tablet daily [...] 05/19/2019 Assessment & Plan (05/19/2019 4:05 PM STAFF HOME THERAPY RN): Ucx: Group B strep -keflex prescription provided HLD (hyperlipidemia) 05/19/2019 Assessment & Plan (05/19/2019 4:14 PM STAFF HOME THERAPY RN): 2 TC 256, HDL 44, LDL 169, TG 213, ASCVD 10yr ~5.9% -in shared decision making start atorva 20 and recommend low fat/low cholesterol diet Psychiatric disorder 05/18/2019 Assessment & Plan (05/19/2019 4:20 PM STAFF HOME THERAPY RN): Patient endorses bipolar/anxiety/depression - continue meds for bipolar and depression: lamictal (level 8.6 at ~24hr, wnl), prozac, with xanax cut down as above. -In future consider change to longer acting benzodiazepine Assessment & Plan (05/18/2019 12:27 AM STAFF HOME THERAPY RN): - patient endorses bipolar/anxiety/depression - continue meds for bipolar and depression, with xanax cut down as above. - psych consult in am to help with titration Encephalopathy 05/18/2019 Assessment & Plan (05/19/2019 4:12 PM STAFF HOME THERAPY RN): Encephalopathy metabolic- UTI and due to opiates/benzos [...] provided Assessment & Plan (05/18/2019 12:28 AM STAFF HOME THERAPY RN): - patient presents with 2nd episode of [...] 05/18/2019 Assessment & Plan (05/19/2019 4:13 PM STAFF HOME THERAPY RN): Patient endorses '50lb' weight loss in last 6months, unintentional. Per chart review: 04/2017 176lb; 02/2019 167lb; 05/2019 156lb. (20lbs in 2yrs) -TSH wnl, HIV neg, HepC neg Right foot sprain, initial encounter 01/17/2019 DDD (degenerative disc disease), cervical 2017 Chronic pain syndrome 03/13/2018 Assessment & Plan (05/18/2019 6:37 PM STAFF HOME THERAPY RN): - titrating pain meds as above Assessment & Plan (05/18/2019 12:27 AM STAFF HOME THERAPY RN): - titrating pain meds as above - pain management c/s in am Cervical radiculopathy 03/13/2018 Sacroiliitis 08/03/2017 Trochanteric bursitis 05/08/2015 Other meterman (current) drug therapy 4 Arthralgia of hip 09/24/2013 Lumbar radiculopathy 02/26/2013 Postlaminectomy syndrome of lumbar region 2012 Chronic pain 08/03/2012 Knee pain 08/03/2012 Fibromyalgia 03/20/2012 Impingement syndrome of both shoulders 2 Arthralgia of shoulder 03/16/2012 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 Medical Devices Implanted Type Area Packing Machine Inspector Device Identifier Shelf Expiration Date Model / Serial / Lot Plate- 5 Implanted:03/28 by Radu Vieira MD (Quantity not on file) Plate N/A: Cervical-T horacic Spine Screw- 9 Implanted:03/28 by Van Flores MD (Quantity not on file) Screw N/A: Lumbar-Sac ral Spine Procedures Procedure Name Priority Date/Time Associated Diagnosis Comments SCREENING MAMMOGRAM BILATERAL W MEENAKSHI Schedule Routine, Read Routine (OP Routine) 07/17/2020 10:20 AM CDT Encounter for screening mammogram for malignant neoplasm of breast HEPATITIS C ANTIBODY Routine 05/18/2019 10:31 PM STAFF HOME THERAPY RN from Last 3 Months or Most Recently Relevant to Health Maintenance Results * Screening Mammogram Bilateral W Meenakshi (07/17/2020 10:20 AM CDT) Anatomical Region Laterality [...] * Hepatitis C antibody (05/18/2019 10:31 PM STAFF HOME THERAPY RN) Hep C Ab Nonreactive Nonreactive JOSE C MONTIEL Comment: Interpretive Data Positive results should be confirmed by a molecular method. If positive, a second separately collected sample should be submitted for Hepatitis C Virus (HCV) RNA Detection and Quantitation by Real-Time Reverse Supervisor [facility]-PCR (RT-PCR). Current interpretive data was last revised on 2016. Blood specimen (specimen) 05/18/2019 10:31 PM STAFF HOME THERAPY RN 05/18/2019 10:57 PM STAFF HOME THERAPY RN Kimberli Lucio MD LAB MICROBIO LOGY - GENERAL ORDERABLES Edited Result - Final JOSE C RING [facility] [place] [address] from Last 3 Months or Most Recently Relevant to Health Maintenance Insurance IDPA [facility] MEDICARE [facility] Address: [address] [address] [place] [address] [facility] MEDICARE HMO MANAGED MEDICARE GENERIC RISK OTHER [employer] MEDICARE HMO [facility] MEDICARE GENERIC RISK OTHER [employer] MEDICARE HMO Advance Directives For more information, please contact: [phone] * Full Code (Latest Code Status on File) Date Activated Date Inactivated Comments 05/18/2019 5:08 PM 05/19/2019 6:25 PM Care Teams Clothing Patternmaker Relationship Specialty Start Date End Date Shaka Poe MD PCP - General 08/10/21
--- OUTSIDE RECORDS SUMMARY | 2024-09-25 11:43 | XMS_ITS | Clinical Summary ---
Author Organization [facility] Address [address] [place] [address] [place] [address] Care Team Providers Care Senior Information Security Analyst Name Role Phone Unavailable Primary Care Provider Unavailabl e Source Comments [facility],non-owned Affiliates and Associated Physician Practices is amultiple site organization consisting of ambulatory clinics and hospital sitesin [place], [place], [place] and [place]. This disclosure is being madepursuant to the Care Everywhere program and may not contain all information available regarding this patient. Last updated 17.[facility] Allergies Active Allergy Reactions Criticality Noted Date Comments Cortisone Headache 12/21/2023 Levofloxacin Rash Medium 11/20/2020 Meloxicam Rash Medium 11/20/2020 Methotrexate Rash Medium 11/20/2020 Paroxetine Swelling High 11/20/2020 Penicillins Itching High 11/20/2020 Rofecoxib Rash Medium 11/20/2020 Sertraline Swelling High 11/20/2020 Medications * Be aware that medications may not be up to date on this document. Alwaysverify current medications with the patient. 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 Gender Identity Not on file Sexual Orientation Not on file Last Filed Vital Signs Vital Sign Reading Time Taken Comments Blood Pressure - - Pulse - - Temperature - - Respiratory Rate - - Oxygen Saturation - - Inhaled Oxygen Concentration - - Weight 63.5 kg (140 lb) 11/20/2020 11:25 AM CDT Height - - Body Mass Index - - Plan of Treatment Health Maintenance Due Date Last Done Comments COLOGUARD (AGES 45-75) - COL ON CA SCREENING 1979 COLON MONITORING 1979 COLONOSCOPY - COLON CA SCREENING 1979 CT COLONOGRAPHY - COLON CA SCREENING 1979 Colorectal Cancer Screening 1979 FIT - COLON CA SCREENING 1979 FLEX SIG - COLON CA SCREENING 1979 LIPID TESTING 1979 MAMMOGRAM 1979 HEPATITIS C SCREENING 06/18/1997 DTAP/TDAP/TD VACCINES (1 - Tdap) 06/22/1998 HEPATITIS B VACCINE (1 of 3 - 19+ 3-dose series) 06/22/1998 PAP with HPV 06/22/2009 PAP SMEAR 08/08/2023 08/07/2020, 08/07/2020 COVID-19 VACCINE (1 - 2023-2 5 season) 2023 DEPRESSION SCREENING 04/11/2024 MEDICARE AWV CALENDAR YEAR 2024 INFLUENZA VACCINE (Season Ended) 2024 ZOSTER VACCINE (1 of 2) 06/22/2029 HIV SCREENING Completed 01/28/2020 HIB VACCINE Aged Out No longer eligi ble based on patient's age to complete this topic HPV VACCINE Aged Out No longer eligi ble based on patient's age to complete this topic MENINGOCOCCAL (Group B) VACCINE SHARED DECISION-MAKING Aged Out No longer eligible based on patient's age to complete this topic MENINGOCOCCAL GROUPS A/C/Y/W VACCINE Aged Out No longer eligible b ased on patient's age to complete this topic PNEUMOCOCCAL VACCINE Aged Out No long er eligible based on patient's age to complete this topic Goals Goal Patient Goal Type Associated Problems Recent Progress Patient-Stated? Author Mobility General No Adelia Jenkins, RN Note: Expected end date: 04/10/2021 The goal is to maintain or improve your mobility at the optimum level for you. Interventions: Insurance MEDICAID [place] BENEFIT - [place] [employer] MEDICAID - OUT OF STATE WELL[employer] [address] [id number]
--- OUTSIDE RECORDS SUMMARY | 2024-09-25 11:43 | XMS_ITS | Patient Health Record ---
Author Organization [facility] Address [address] [facility] [address] [place], [place] [id number] Care Team Providers Care Ground Crew Chief Name Role Phone Min Herrera Primary Care Provider Unavailab Dotty David Unavailable [phone] JAMIE MCCOY MD Unavailable Unavailable ALLERGIES Allergen (clinical drug ingredient) Drug/Non Drug Allergy documented on EMR Reaction Allergy Type Onset Date Status Vioxx Unknown Drug Allergy Active penicillin Unknown Drug Allergy Active Levaquin Unknown Drug Allergy Active paroxetine Paxil Unknown Drug Allergy Active sertraline Zoloft Unknown Drug Allergy Active REASON FOR REFERRAL No Information MEDICATIONS Medication SIG (Take, Route, Fr equency, Duration) Notes Start Date End Date Status Cymbalta Active famotidine Active baclofen 5 mg orally 3 times a day Active atorvastatin Active ALPRAZolam 0.5 mg 1 tab(s) orally 4x a day Active PROzac 40 mg 1 cap(s) orally once a day Not-Taking LaMICtal 200 mg 1 tab(s) orally bid Active Cimzia 200 mg/mL 400mg subcutaneously every 4 weeks for 30 days 12/19/2018 Active folic acid 1 mg 2 tab(s) orally once a day for 90 days Active Vitamin C 1000 mg 1 tab(s) orally once a day Active Xanax 1 mg 1 tab(s) orally 4 times a day Active dicyclomine 20 mg 1 tab(s) orally 4 times a day Active SOCIAL HISTORY Tobacco Use: Social History Observation Description Date Details (start date - stop date) Current Smoker NA - NA Sex Assigned At : Social History Observation Description Sex Assigned At Unknown Tobacco Use: Question Answer Notes Smoking Status current smoker PROBLEMS Problem Type ICD Code Onset Dates Problem Status W/U Status Risk SNOMED Code Notes Problem JOINT PAIN-MULT JTS (719.49) Active confirmed Multiple joint pain (49823863) Problem Myalgia (729.1) Active confirmed Myalgi a (21227824) Problem Low back pain (724.2) Active confirmed Low back pain (108899327) Problem POLYARTHRITIS (716.59) Active confirmed Polyarthritis (191797959) Problem Smoker (F17.200) Active confirmed 78070 002 Problem Other chronic pain (G89.29) Active confirmed 31054654 Problem Low back pain (M54.5) Active confirmed 603033481 Problem Polyarthritis (M13.0) Active confirmed 82673489 Problem 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) Active confirmed 076530717 Problem Psoriatic arthritis (L40.50) Active confirmed 822251055 Problem Other salvage determiner (current) drug therapy (Z79.899) Active confirmed 778906080 Problem Paresthesia of upper extremity (R20.2) Active confirmed Paresthesia of upper extremity (10823411) Problem Other osteoarthritis of spine, 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) Active confirmed Thoracic spondylosis without myelopathy (950362984) Problem Leukocytosis, unspecified type (D72.829) Active confirmed 765019207 PLAN OF TREATMENT Pending Test Test Name Order Date AST (SGOT) 10/13/2017 ALT (SGPT) 10/13/2017 CBC With Differential/Platelet 9 ALERA () 05/04/2018 SPEPW/Interpretation w/reflex 12/10/2019 ALT () 05/04/2018 Creatinine () 05/04/2018 X ray : Hand left- outside order 018 X ray : Hand left- outside order 015 X ray : Hand right- outside order 2014 X ray : Hand right- outside order 2017 Joint Injection-wrist, right 06/28/2018 Joint Injection - knee, right 07/15/2017 Joint Injection - knee, right 11/29/2018 X ray : SI joints- outside order 018 X ray : SI joints- outside order 015 X ray : Wrist, right- outside orders X ray : Foot Left- outside order 015 X ray : Foot Right- outside order 2014 -Xray slip given 12/08/2017 -Xray slip given 05/05/2017 -Xray slip given 06/28/2018 MRI : SI Joints 05/09/2017 NCS : Upper Extremities, Left 12/08/2017 NCS : Upper Extremities, Right 8 Insurance Providers Payer Name Payer Address Payer Phone Subscriber Number Group Number Insured Name Patient Relationship to Insured Coverage Start Date Coverage End Date [facility] [address] [facility] [place] [address] [id number] [id number] PHAN Spouse - patient is the spouse of the insured 9 MEDICARE/ SIGNMENT SECONDARY [address] [place] [address] [id number] Akua Phan Self - patient is the insured 6 MEDICAL (GENERAL) HISTORY Medical History History ICD Code migraine headache tension headaches poor appetite frequent urination Hot Flashes painful intercourse Vaginal discharge anxiety depression bipolar bruises easily sinus problems Surgical History Surgery Date(Month/Year) neck surgery back fusion 2010 appendectomy 2010 tenditis surgery
--- OUTSIDE RECORDS SUMMARY | 2024-09-25 11:44 | XMS_ITS | Encounter Summary ---
Author Organization [facility] Address 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
--- OUTSIDE RECORDS SUMMARY | 2024-09-25 11:44 | XMS_ITS | Clinical Summary ---
Author Organization [facility] Address [address] [place] [address] Phone Care Team Providers Care Employment Services Director Name Role Phone Anup Lowe Primary Care Provider [phone] Allergies Active Allergy Reactions Criticality Noted Date Comments Cortisone Other (see Comments) 12/21/2023 Levofloxacin Hives,Unknown 01/28/2020 Meloxicam Rash,Hives,Shortness of Breath 01/27 Methotrexate Rash,Hives,Shortness of Breath Paroxetine Anaphylaxis,Hives,Unknown 01/28/2020 Penicillin G Shortness of Breath 07/29/2024 Penicillins Hives 01/28/2020 Rofecoxib Hives,Itching,Unknown 06/07/2022 Sertraline Shortness of Breath,Hives,Unknown Medications hydrOXYzine (VISTARIL) 50 MG Capsule Take 50 mg by mouth. 3 Active FLUoxetine (PROZAC) 40 MG Capsule Take 40 mg by mouth daily. 3 Active dicyclomine (BENTYL) 20 MG Tablet Take 20 mg by mouth 2 times daily. 2 Active levonorgestrel (Mirena, 52 MG,) 20 MCG/DAY IUD Mirena 21 mcg/24 hours (8 yrs) 52 mg intrauterine device Take 1 device by intrauterine route. Active atorvastatin (LIPITOR) 20 MG Tablet Take 20 mg by mouth daily. 2 Active lamoTRIgine (LaMICtal) 200 MG Tablet 200 MG ORALLY TWICE A DAY 2 Active rOPINIRole (REQUIP) 1 MG Tablet Take 1 Tablet by mouth. 5 Active QUEtiapine (SEROquel) 200 MG Tablet TAKE ONE TABLET BY MOUTH AT BEDTIME ALONG WITH A 50MG TABLET Active QUEtiapine Fumarate (SEROquel) 50 MG Tablet TAKE ONE TABLET BY MOUTH AT BEDTIME ALONG WITH A 200MG TABLET 5 Active cyclobenzaprin e (FLEXERIL) 10 MG Tablet take 1 tablet by mouth four times a day as needed 5 Active oxyCODONE 10 MG Tablet take 1 tablet by mouth three times a day as needed for pain Active gabapentin (NEURONTIN) 300 MG Capsule Take 300 mg by mouth 3 times daily. 5 Active Qulipta 60 MG Tablet Take 1 Tablet by mouth daily. Active butalbital-klarissa taminophen-caf feine (FIORICET, ESGIC) 50-325-40 MG Tablet take 1 tablet by mouth daily as needed 5 Active Latuda 60 MG Tablet Take 60 mg by mouth daily. 3 025 Discontin ued(Med List Clean Up) baclofen (LIORESAL) 20 MG Tablet Take 20 mg by mouth 2 times daily. 3 025 Discontin ued(Med List Clean Up) traZODone (DESYREL) 100 MG Tablet Take 100 mg by mouth nightly. 3 025 Discontin ued(Med List Clean Up) albuterol 108 (90 Base) MCG/ACT Aerosol Solution take 1-2 Puffs by inhalation every 4 hours as needed for Wheezing. 18 g 6 3 025 Discontin ued(Med List Clean Up) HYDROcodone-ac etaminophen (NORCO) 5-325 MG TabletIndicati ons:Cervical strain, acute, initial encounter,DDD (degenerative disc disease), lumbar Take 1 Tablet by mouth every 8 hours as needed for Moderate or more severe pain. 12 Tablet 4 025 Discontin ued(Med List Clean Up) methylPREDNISo lone (MEDROL DOSPACK) 4 MG Tablet Therapy Pack See product package insert for dosing schedule 21 Tablet 4 025 Discontin ued(Med List Clean Up) methylPREDNISo lone (MEDROL DOSPACK) 4 MG Tablet Therapy Pack See product package insert for dosing schedule 21 Tablet 5 025 Discontin ued(Med List Clean Up) Active Problems Problem Noted Date Diagnosed Date Anemia due to unknown mechanism 09/13/2024 Thrombocytosis 09/13/2024 Leukocytosis (leucocytosis) 09/13/2024 Encounters Date Type Department Care Team Description 09/13/2024 12:05 PM CDT Lab [facility] [address] [phone] Lab, [facility] Anemia due to unknown mechanism; Thrombocytosis; Leukocytosis, unspecified type 09/13/2024 11:30 AM CDT Office Visit [facility] [address] [phone] Laron Palmer MD Anemia due to unknown mechanism (Primary Dx); Thrombocytosis; Leukocytosis, unspecified type 09/13/2024 Travel 09/10/2024 Transcribe Orders [facility] [address] [place] [address] [place] [address] Anup Lowe Visit for screening mammogram (Primary Dx) 08/26/2024 7:32 PM CDT - 08/26/2024 9:35 PM CDT Emergency [facility] Emergency [address] [place] [address] Brit King PAC Right ankle sprain Discharge Disposition: Discharged to home or Selfcare 08/26/2024 Travel 07/29/2024 8:14 PM CDT - 07/29/2024 8:45 PM CDT Emergency [facility] Emergency [address] [place] [address] 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, 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[employer], 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 Other chronic pain Discharge Disposition: Discharged to home or Selfcare 07/29/2024 Travel from Last 3 Months Immunizations Immunization Administration Dates Next Due TDAP Vaccine 11/17/2020,10/26/2018 Family History Medical History Relation Name Comments Stroke Maternal Aunt Relation Name Status Comments Maternal Aunt Social History Tobacco Use Types Packs/Day Years Used Date Smoking Tobacco: Every Day Cigarettes 0.5 29.5 Started: 1995 Smokeless Tobacco: Never Tobacco Cessation:Ready to Q uit: Not Asked; Counseling Given: Not Answered Alcohol Use Standard Drinks/Week Comments Not Currently 0 (1 standard drink = 0.6 oz pur e alcohol) PHQ-2 Answer Date Recorded Total Score - Questions 1-9 0 04/13 Comments No Sex and Gender Information Value Date Recorded Sex Assigned at Female 10/07/2023 10:40 PM CDT Legal Sex Female 10:39 PM CDT Gender Identity Female 10/07/2023 10:40 PM CDT Sexual Orientation Not on file Last Filed Vital Signs Vital Sign Reading Time Taken Comments Blood Pressure 100/74 09/13/2024 11:27 AM CDT Pulse 107 09/13/2024 11:27 AM CDT Temperature 36.9 C (98.4 F) 09/13/2024 11:27 AM CDT Respiratory Rate 18 09/13/2024 11:2 7 AM CDT Oxygen Saturation 97% 09/13/2024 11: 27 AM CDT Inhaled Oxygen Concentration - - Weight 74.8 kg (164 lb 12.8 oz) 025 11:27 AM CDT Height 154.9 cm (5' 1) 09/13/2024 11:2 7 AM CDT Body Mass Index 31.14 09/13/2024 11:27 AM CDT Plan of Treatment Upcoming Encounters Date Type Department Care Team (Late st Contact Info) Description 10/04/2024 11:30 AM CDT Office Visit [facility] [address] [phone] Laron Palmer MD [address] [place], [place] [id number] 10/23/2024 8:45 AM CDT Appointment [facility]amm[facility] [address] [place] [id number] Anup Lowe [facility] [place] [address] Discharge Disposition: Discharged to home or Selfcare Health Maintenance Due Date Last Done Comments Hepatitis C Virus (HCV) Screening 1980 Human Papillomavirus (HPV) Immunization (1 - 3-dose series) 06/22/1994 Hepatitis B Immunization (1 of 3 - 19+ 3-dose series) 06/22/1998 Pneumococcal Immunization Combined (1 of 2 - PCV) 06/22/1998 Pap Smear 06/22/2000 Cervical Cancer Screening (CCS) 06/22/2009 HPV/Cotest 06/22/2009 Mammogram 07/17/2021 07/17/2020 SARS-COV-2 Immunization ( season) 2023 07/18/2020 Cologuard 06/22/2024 Colonoscopy 06/22/2024 Colorectal Cancer Screening 06/22/2024 Immunochemical Fecal Occult Blood 06/22/2024 Influenza Immunization (Seas on Ended) 2024 Td Immunization Every 10 Yea rs (Adults With 1 Tdap) 11/17/2030 11/17/2020, 10/26/2018 Respiratory Syncytial Virus (RSV) Immunization (Adult) (1 - 1-dose 75+ series) 06/22/2054 Discussion re Starting/Frequency of Mammograms Completed 07/17/2020 DTaP/Tdap/Td Immunization Discontinued 2020, 10/26/2018 Meningococcal Immunization (ACWY) Aged Out No longer eligible based on patient's age to complete this topic Rotavirus Immunization Aged Out No lo nger eligible based on patient's age to complete this topic Procedures Procedure Name Priority Date/Time Associated Diagnosis Comments COMPLETE BLOOD COUNT (CBC) WITH DIFF Routine 09/13/2024 11:57 AM CDT Anemia due to unknown mechanism Thrombocytosis Leukocytosis, unspecified type CMP (COMPREHENSIVE METABOLIC PANEL) Routine 09/13/2024 11:57 AM CDT Anemia due to unknown mechanism Thrombocytosis Leukocytosis, unspecified type LACTATE DEHYDROGENASE (LD) Routine 09/13/2024 11:57 AM CDT Anemia due to unknown mechanism Thrombocytosis Leukocytosis, unspecified type IRON W/ IRON BINDING CAPACITY OH Routine 09/13/2024 11:57 AM CDT Anemia due to unknown mechanism Thrombocytosis Leukocytosis, unspecified type FERRITIN Routine 09/13/2024 11:57 AM CDT Anemia due to unknown mechanism Thrombocytosis Leukocytosis, unspecified type HAPTOGLOBIN Routine 09/13/2024 11:57 AM CDT Anemia due to unknown mechanism Thrombocytosis Leukocytosis, unspecified type ONKOSIGHT NGS JAK2 V617F REFLEX JAK2 EXON 12, CALR AND H Routine 09/13/2024 11:57 AM CDT Anemia due to unknown mechanism Thrombocytosis Leukocytosis, unspecified type XR FOOT 3 OR MORE VIEWS RIGHT STAT 08/26/2024 8:08 PM CDT XR ANKLE 3 OR MORE VIEWS RIGHT STAT 08/26/2024 8:02 PM CDT XR WRIST 3 OR MORE VIEWS RIGHT STAT 08/26/2024 7:59 PM CDT from Last 3 Months Results * (ABNORMAL) IRON W/ IRON BINDING CAPACITY [place] (09/13/2024 11:57 AM CDT) IRON 50 50 - 212 ug/dL [facility] UIBC 177 155 - 355 ug/dL [facility] TIBC 227(L) 261 - 478 ug/dl [facility] % Saturation 22 20 - 50 % [facility] Blood 09/13/2024 11:5 7 AM CDT Narrative [facility] - 09/13/2024 12:40 PM CDT Release to patient->Immediate us Laron Palmer MD LAB SEND OUTS Final Result [facility] [place] [address], * ONKOSIGHT NGS JAK2 V617F REFLEX JAK2 EXON 12, CALR AND H (09/13/2024 11:57 AM CDT) NGS JAK2 V617 RX EXON12 NORMAL [facility] ONKOSIGH NGS MPL SEQUENCING NORMAL [facility] JAK2 EXON 12 SEQUENCING NORMAL [facility] CALR SEQUENCING NORMAL [facility] NGS JAK2 V617F SEQUENCING NORMAL CANCER CENT [facility] Comment: OnkoSight JAK2 V617F Rx JAK2 Exon 12, CALR & MPL Final Report - RESULT SUMMARY: NORMAL - DETECTED GENOMIC ALTERATIONS: No Mutations Identified - TUMOR TYPE: Not Provided - CLINICAL INFORMATION: Provided ICD-10 codes: D75.839 (thrombocytosis, unspecified), D72.829 (elevated white blood cell count, unspecified), and D64.9 (anemia, unspecified). - PERTINENT NEGATIVE RESULTS: The following genes are NEGATIVE for clinically relevant mutations. Mutational hotspots and surrounding exonic regions were interrogated for DNA level point mutations and indels (fusions not assayed). CALR, JAK2 Exon12, JAK2 V617F, MPL - MUTATIONAL HOTSPOTS: The following recurrently mutated codons demonstrated adequate sequencing coverage depths and show wild type sequences only. Gene: CALR Codons: 367, 385 Gene: JAK2 Codons: 533, 534, 535, 536, 537, 538, 539, 540, 541, 542, 543, 544, 545, 546, 547, 617 Gene: MPL Codons: 515 The following recurrently mutated codons demonstrated inadequate sequencing coverage depths (<100x), and the possibility of undersensitive detection cannot be excluded. Not Applicable - TRANSCRIPT ACCESSIONS FOR INTERROGATED GENES: Gene: CALR Transcript ID: [id number] Gene: JAK2 Transcript ID: [id number] Gene: MPL Transcript ID: [id number] - COVERAGE DEPTHS: Among the following targeted exons, >50% of coding sequences failed to achieve >100x coverage depths. Analytic sensitivity for potentially relevant genomic alterations may therefore be limited among the following interrogated loci: Not Applicable INTERPRETATION SUMMARY SEE BELOW [facility] Comment: INTERPRETATION SUMMARY: - This was a NORMAL sequencing study in which no disease associated mutations or variants of unclear significance were identified in the tested specimen. The absence of mutations should be interpreted in the context of other clinical and pathologic findings. Normal sequencing results may be a consequence of testing a sample with little or no neoplastic cells present. Clinical and pathologic correlation is required to interpret these findings. METHODS SEE BELOW [facility] Comment: METHODS: Tissue macrodissection and DNA isolation from tumor enriched areas are based on histologic review by an appropriately board certified pathologist; specimens with minimal tumor cellularity may be rejected. Nucleic acid is isolated from the submitted specimen. Anchored Multiplex PCR (AMP) is performed to generate target-enriched next generation sequencing (NGS) libraries. AMP utilizes unidirectional gene-specific primer (GSP) oligonucleotides that enrich for both known and unknown mutations. Each genomic DNA fragment is also tagged with a unique molecular identifier sequence (LARRY), used after sequencing on an Illumina ProgrammerMeetDesigner.comq instrument ([place], [place]) with paired end, 151 base pair reads to collapse PCR duplicates and enable accurate counting of variant allelic frequencies. A minimum number of 100 unique reads (after removal of PCR duplicates) to detect a mutation is required. An automated process that takes into account statistical confidence of base calling and alignment and mapping quality identifies variants (Digital Solid State Propulsion Analysis Software version 6.2.7, Released 05 Sep 2019). Following mapping of the read data to the human genome (reference build GRCh37/hg19), single nucleotide variants (SNVs), and insertion deletion events (Indels) with an allele frequency (AF) greater than 2% are detected utilizing Blue Rooster Analysis bioinformatic analytical pipeline with the exception of FLT3 (0.8% AF), JAK2 p.V617F (0.8% AF) and MYD88 p.L265P (1% AF). Detection of Insertions larger than 63 bases have not been validated. Detection of Deletions larger than 52 bases have not been validated. Reported variants include known disease associated mutations and unclear variants with little or no literature support. Benign population polymorphisms are not included in the report. The mutation hotspots of the following genes were interrogated by this test: JAK2 V617F, JAK2 Exon 12, MPL and CALR.Variant Tier categorization is rendered in accordance with the AMP/ASCO/CAP consensus recommendations (see Li et al. Standards and Guidelines for the Interpretation and Reporting of Sequence Variants in Cancer: A Joint Consensus Recommendation of the Association for Molecular Pathology, [place] Society of Clinical Oncology, and College of [place] Pathologists. The Journal of molecular diagnostics: JMD. 2017 Apr;19(1):4-23. doi: 10.1016/j.jmoldx.2016.10.002. PubMed Central PMCID: [id number]. PubMed PMID: 07564328)). OnkoSightAdvanced was developed and its performance characteristics were determined by [employer], a division of [employer]. This test has not been cleared or approved by the US Food and Drug Administration (FDA). The FDA has determined that such a clearance or approval is not necessary. Pursuant to the requirements of CLIA'88, this laboratory has established and verified the tests accuracy and precision. However, a false positive or false negative result incurred during any phase of the testing cannot be completely excluded. Large insertion/deletion (eg. FLT3-ITD aberrations) may not be detected by this assay due to the limit of sequencing read length and bioinformatics processing. This assay does not detect translocation/gene fusion. This assay does not determine variant causality, or whether a variant is inherited or somatically acquired. These results may be used for clinical or research purposes and therefore should be carefully considered within the context of other clinical and laboratory data. In the absence of an appropriate clinical context, the clinical utility of OnkoSighttesting is not clearly defined. The information contained in this report reflects the current interpretation of the findings as of the date of the report, based on the available scientific information. This information, which comes from numerous sources, is subject to microsoft exchange administrator time in response to future scientific and medical findings and correlations. [employer]. makes no representation or warranty of any kind regarding the accuracy of information provided or contained in these manuscripts, references or other sources of information. If any of the information provided by or contained in the referenced material is later deemed to be inaccurate, this may impact the accuracy of this report and interpretation of the findings. [employer]. is not obligated to notify you of any impact that additional or modified information, or future scientific or medical research may have on this report. The laboratory is not responsible for reanalysis of the data or updated classification of this report or past reportsfindings as the knowledge evolves. A medical provider can request a reassessment of clinical significance of variants and/or re-review of the clinical interpretation of the findings. Additional charges may apply for the updated report. Please contact the laboratory for more information if update is requested. This assay has been approved by the [facility] based on initial validation; orthogonal testing for full validation is currently ongoing. Please contact the laboratory for more information if update is requested. REFERENCES 1 SEE BELOW [facility] Comment: REFERENCES: 1. Analia MM, Noel M, Bernardo EJ, Rocio S, Stephen NI, Genaro S, Hugo AM, Sabiha CL, Merced DJ, Mark A, Cristian MN. Standards and Guidelines for the Interpretation and Reporting of Sequence Variants in Cancer: A Joint Consensus Recommendation of the Association for Molecular Pathology, [place] Society of Clinical Oncology, and College of [place] Pathologists. The Journal of molecular diagnostics : JMD. 2017 Apr;19(1):4-23. doi: 10.1016/j.jmoldx.2016.10.002. PubMed PMID: 81254095. [facility] Central PMCID: [id number]. 2. Genome Aggregation Database (gnomAD), [place], [place] (URL: https://gnomad.[email or web address].org) [September,] 3. Payam J, Josselinek E. World health organization classification, evaluation, and genetics of the myeloproliferative neoplasm variants. Hematology. [place] Society of Hematology. Education Program. 2010;7893350-0. doi: 10.1182/asheducation-2010.1.250. PubMed PMID: 19024972. 4. Mayco P, Karen A, Nimelissa R, Looser R, Darek-Randal H, Ashley I, Ricksberger S, Caitlin T, Norman J, Espinoza M, Stuart C, Vinita R, Sktiffany RC. Clonal evolution and clinical correlates of somatic mutations in myeloproliferative neoplasms. Blood. 2014 Jul 12;123(14):2220-8. Epub 2013May 09. doi: 10.1182/qsayy-4353-68-344802. PubMed PMID: 55634494. 5. Rad E, Ramirez I, Pilousi V, Artuso L, Samina E, Esau P, Doc L, Jaleesa C, Madelin F, Hien G, Josemanuel C, Romina E, Abran A, Nolan T, Gavin Salmeron G, Allan S, Vipul R, Abad CABRALES, Jamin Hutchins, Targeted cancer exome sequencing reveals recurrent mutations in myeloproliferative neoplasms. Leukemia. 2014 August;28(5):1052-9. Epub 2012Jan 30. doi: 10.1038/mariel.2013.302. PubMed PMID: 71915502. PubMed Central PMCID: [id number]. 6. Eden T, Salvatore D, Carrillo N, Nikita N, Kocharlene Y, Meg Y, Enomoto Y, Doki N, Uchida T, Kaly Y, Itz K, Ephraim ZAYRA, Sharita R, Horikawa S, Stevan Y, Sakatina M, Fukuyama T, Harry K, Oki T, Danny F, Debbie Wagner. The molecular basis of myeloid malignancies. Proceedings of the [place] Academy. Series B, Physical and biological sciences. 2014;90(10):389-404. PubMed PMID: 65674678. PubMed Central PMCID: [id number]. REPORT FOOTER SEE BELOW [facility] Comment: Hardeep Kilpatrick M.D., Bench Precision Assembler Electronically signed by Jaja Anthony, PhD, [facility] [employer] is a division of [employer] [place] [id number] Created TueSep 20 17:26:52 EDT 2024 09/13/2024 11:5 7 AM CDT Narrative [facility] - 09/20/2024 5:46 PM CDT Testing performed at: [employer] [place] [address], Bench Precision Assembler: Dr. Laz Thomas M.D.; [facility] Accn#:[id number] Release to patient->Immediate us Laron Palmer MD LAB SEND OUTS Final Result Performing Organization Address [facility] Co de Phone Number [facility] [place] [address], [place] [phone] * (ABNORMAL) LACTATE DEHYDROGENASE (LD) (09/13/2024 11:57 AM CDT) LDH 134(L) 140 - 271 U/L [facility] Blood 09/13/2024 11:5 7 AM CDT [facility] - 09/13/2024 12:40 PM CDT Release to patient->Immediate us Laron Palmer MD CHEMISTRY ORDERABLES Final R esult Performing Organization Address [facility] Co de Phone Number [facility] [place] [address], [place] [phone] * (ABNORMAL) HAPTOGLOBIN (09/13/2024 11:57 AM CDT) HAPTO 258(H) 44 - 215 mg/dL [facility] Blood 09/13/2024 11:5 7 AM CDT [facility] - 09/14/2024 1:33 PM CDT Release to patient->Immediate us Laron Palmer MD CHEMISTRY ORDERABLES Final R esult Performing Organization Address [facility] Co de Phone Number [facility] [place] [address], [place] [phone] * FERRITIN (09/13/2024 11:57 AM CDT) Ferritin 103 11 - 307 ng/mL [facility] Blood 09/13/2024 11:5 7 AM CDT Narrative [facility] - 09/14/2024 2:21 PM CDT Release to patient->Immediate Laron Palmer MD CHEMISTRY ORDERABLES Final R esult [facility] [place] [address], * (ABNORMAL) CMP (COMPREHENSIVE METABOLIC PANEL) (09/13/2024 11:57 AM CDT) Glucose 83 70 - 105 mg/dL [employer] [facility] [employer] [facility] [employer] [facility] Blood Urea Nitrogen 5(L) 7 - 25 mg/dL [facility] Creatinine 1.1 0.6 - 1.2 mg/dL [facility] Sodium 133(L) 136 - 145 mEq/L [facility] Potassium 3.9 3.5 - 5.1 mEq/L [facility] Chloride 100 98 - 107 mEq/L [facility] Bicarbonate 27 21 - 31 mEq/L [facility] Total Bilirubin 0.3 0.3 - 1.0 mg/dL [facility] Alk. Phosphatase 82 34 - 104 U/L [facility] Aspartate Aminotransferase 11(L) 13 - 39 U/L [facility] Alanine Aminotransferase 7 7 - 52 U/L [facility] Total Protein 6.8 6.4 - 8.9 g/dL [facility] Albumin 4.1 3.5 - 5.7 g/dL [facility] Calcium 9.0 8.6 - 10.3 mg/dL [facility] Anion Gap 9.9 7.0 - 15.0 mEq/L [facility] Globulin 2.7 2.0 - 3.5 g/dL [facility] [facility] EGFR 63 >60 ml/min/1. 73m2 [employer] [facility] [facility] [employer] Comment: This eGFR is calculated using 2020 CKD-EPI Creatinine equation without race modifier based on the NKF-ASN task force recommendations Equation: kNMO=359*min(SCr/k,1)a*max(SCr/k,1)-1.200*0.9938Age*1.012 (if female), where SCr is serum creatinine, k is 0.7 for females and 0.9 for males, and a is -0.241 for females and -0.302 for males Blood 09/13/2024 11:5 7 AM CDT Narrative [facility] - 09/13/2024 12:40 PM CDT Release to patient->Immediate IS THE PATIENT REQUIRED TO BE FASTING FOR 8 HOURS?->No us Laron Palmer MD CHEMISTRY ORDERABLES Final R esult [facility] [facility] [place] [address], * (ABNORMAL) COMPLETE BLOOD COUNT (CBC) WITH DIFF (09/13/2024 11:57 AM CDT) WBC 9.1 4.0 - 10.0 10*3/uL [facility] HGB 11.4 11.2 - 15.7 g/dL [facility] HCT 33.9(L) 34.1 - 44.9 % [facility] PLT 386(H) 163 - 369 10*3/uL [facility] MPV 9.2(L) 9.4 - 12.4 fL [facility] RBC 3.72(L) 3.93 - 5.22 10*6/uL [facility] MCV 91 79 - 95 fL [employer] [facility] [employer] [employer] MCH 30.6 25.6 - 32.2 pg [facility] [employer] MCHC 33.6 32.2 - 36.5 g/dL [facility] RDW 13.1 11.6 - 14.4 % [facility] [employer] [facility] Absolute Neutrophil Count 5,648 cells/uL [facility] Absolute Seg Count 5,648 1,440 - 6,600 cells/uL [facility] Absolute Lymph Count 2,824 760 - 4,000 cells/uL [employer] [facility] Absolute [place] Count 364 160 - 1,200 cells/uL [employer] [facility] Absolute Eos Count 91 0 - 300 cells/uL [employer] [facility] Absolute Baso Count 91 0 - 100 cells/uL [employer] [facility] [employer] [employer] [facility] Segmented Neutrophils 62 36 - 66 % [facility] [employer] [facility] Lymphocytes 31 19 - 40 % [facility] Monocytes 4 4 - 12 % [facility] Eosinophils 1 0 - 3 % [facility] Basophils 1 0 - 1 % [facility] Myelocytes 1 0 - 2 % [facility] WBC Estimate Normal [facility] Platelet Estimate High [employer] [facility] [employer] [employer] [facility] RBC Morphology Normal [facility] R [facility] Blood 09/13/2024 11:5 7 AM CDT Narrative [facility] - 09/13/2024 1:19 PM CDT Release to patient->Immediate us Laron Palmer MD HEMATOLOGY ORDERABLES Final Result [employer] [facility] [employer] [facility] [facility] [address] [place] [address], * XR FOOT 3 OR MORE VIEWS RIGHT (08/26/2024 8:08 PM CDT) Anatomical Region Laterality Modality LOWER EXTREMITY, foot Right Digital Ra diography 08/26/2024 9:03 PM CDT Impressions 08/26/2024 9:05 PM CDT IMPRESSION: No acute osseous abnormality. Narrative 08/26/2024 9:05 PM CDT EXAM DESCRIPTION: XR FOOT 3 OR MORE VIEWS RIGHT REASON FOR STUDY: pt c/o RT wrist, foot and ankle pain after a fall today due to increase weakness x 2 days TECHNIQUE: 3 radiographic view(s) of the right foot . COMPARISON: None FINDINGS: BONES/JOINTS: There is no acute fracture, malalignment or osseous abnormality. Mild narrowing of the 1st metatarsophalangeal joint with small osteophytes. SOFT TISSUES: Within normal limits. THIS IS AN ELECTRONICALLY VERIFIED FINAL REPORT 08/26/2024 9:03 PM - Electronically signed by Victorino Pastrana M.D. KT: ODELL Report ID: [id number] Reading Location: [id number] Procedure Note Victorino Pastrana MD - 08/26/2024 EXAM DESCRIPTION: XR FOOT 3 OR MORE VIEWS RIGHT REASON FOR STUDY: pt c/o RT wrist, foot and ankle pain after a fall today due to increase weakness x 2 days TECHNIQUE: 3 radiographic view(s) of the right foot . COMPARISON: None FINDINGS: BONES/JOINTS: There is no acute fracture, malalignment or osseous abnormality. Mild narrowing of the 1st metatarsophalangeal joint with small osteophytes. SOFT TISSUES: Within normal limits. THIS IS AN ELECTRONICALLY VERIFIED FINAL REPORT 08/26/2024 9:03 PM - Electronically signed by Victorino Pastrana M.D. KT: ODELL Report ID: [id number] Reading Location: [id number] IMPRESSION: No acute osseous abnormality. [facility] Neela Page PAC IMG DIAGNOSTIC ORDERABLES Fi nal Result * XR ANKLE 3 OR MORE VIEWS RIGHT (08/26/2024 8:02 PM CDT) Anatomical Region Laterality Modality LOWER EXTREMITY, ankle Right Digital R adiography 08/26/2024 9:03 PM CDT Impressions 08/26/2024 9:06 PM CDT IMPRESSION: No acute osseous abnormality. Narrative 08/26/2024 9:06 PM CDT EXAM DESCRIPTION: XR ANKLE 3 OR MORE VIEWS RIGHT REASON FOR STUDY: pt c/o RT wrist and ankle pain after a fall today due to increase weakness x 2 days TECHNIQUE: 3 radiographic view(s) of the right ankle . COMPARISON: None FINDINGS: BONES/JOINTS: There is no acute fracture, malalignment or osseous abnormality. The joint spaces are normal. SOFT TISSUES: Within normal limits. THIS IS AN ELECTRONICALLY VERIFIED FINAL REPORT 08/26/2024 9:03 PM - Electronically signed by Victorino Pastrana M.D. KT: ODELL Report ID: [id number] Reading Location: [id number] Procedure Note Victorino Pastrana MD - 08/26/2024 EXAM DESCRIPTION: XR ANKLE 3 OR MORE VIEWS RIGHT REASON FOR STUDY: pt c/o RT wrist and ankle pain after a fall today due to increase weakness x 2 days TECHNIQUE: 3 radiographic view(s) of the right ankle . COMPARISON: None FINDINGS: BONES/JOINTS: There is no acute fracture, malalignment or osseous abnormality. The joint spaces are normal. SOFT TISSUES: Within normal limits. THIS IS AN ELECTRONICALLY VERIFIED FINAL REPORT 08/26/2024 9:03 PM - Electronically signed by Victorino Pastrana M.D. KT: ODELL Report ID: [id number] Reading Location: [id number] IMPRESSION: No acute osseous abnormality. [facility] Cornell Page PAC IMG DIAGNOSTIC ORDERABLES Fi nal Result * XR WRIST 3 OR MORE VIEWS RIGHT (08/26/2024 7:59 PM CDT) Anatomical Region Laterality Modality UPPER EXTREMITY, wrist Right Digital R adiography 08/26/2024 9:04 PM CDT Impressions 08/26/2024 9:06 PM CDT IMPRESSION: No acute osseous abnormality. Narrative 08/26/2024 9:06 PM CDT EXAM DESCRIPTION: XR WRIST 3 OR MORE VIEWS RIGHT REASON FOR STUDY: pt c/o RT wrist and ankle pain after a fall today due to increase weakness x 2 days TECHNIQUE: 3 radiographic view(s) of the right wrist . COMPARISON: None FINDINGS: BONES/JOINTS: There is no acute fracture, malalignment or osseous abnormality. The joint spaces are normal. SOFT TISSUES: Within normal limits. THIS IS AN ELECTRONICALLY VERIFIED FINAL REPORT 08/26/2024 9:04 PM - Electronically signed by Victorino Pastrana M.D. KT: ODELL Report ID: [id number] Reading Location: [id number] Procedure Note Victorino Pastrana MD - 08/26/2024 EXAM DESCRIPTION: XR WRIST 3 OR MORE VIEWS RIGHT REASON FOR STUDY: pt c/o RT wrist and ankle pain after a fall today due to increase weakness x 2 days TECHNIQUE: 3 radiographic view(s) of the right wrist . COMPARISON: None FINDINGS: BONES/JOINTS: There is no acute fracture, malalignment or osseous abnormality. The joint spaces are normal. SOFT TISSUES: Within normal limits. THIS IS AN ELECTRONICALLY VERIFIED FINAL REPORT 08/26/2024 9:04 PM - Electronically signed by Victorino Pastrana M.D. KT: ODELL Report ID: [id number] Reading Location: [id number] IMPRESSION: No acute osseous abnormality. 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
--- OUTSIDE RECORDS SUMMARY | 2024-09-25 11:44 | XMS_ITS | Clinical Summary ---
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 Gender Identity Not on file Sexual Orientation Not on file Plan of Treatment Health Maintenance Due Date Last Done Comments DTAP/TDAP/TD VACCINES (1 - Tdap) 06/22/1998 HEPATITIS B VACCINES (1 of 3 - 19+ 3-dose series) 06/22/1998 HPV/Cotest (21-29) 06/22/2000 CERVICAL CANCER SCREENING 06/22/2009 HPV/Cotest (30-65) 06/22/2009 PAP SMEAR 06/22/2009 BREAST CANCER SCREENING 2019 INFLUENZA VACCINE (#1) 2023 COLORECTAL SCREENING 06/22/2024 Colorectal Cancer Screening 06/22/2024 FIT-DNA Q 3 years 06/22/2024 FIT/FOBT Q 1 year 06/22/2024 Flex Sig/CT Colonography Q 5 years 06/22/2024 HPV VACCINES Aged Out No longer eligi ble based on patient's age to complete this topic Insurance MEDICARE PART A AND B [employer] O OPEN ACCESS Care Teams Trap Setter Relationship Specialty Start Date End Date Mike Nunez MD PCP - General Internal Medicine 08/22/14
--- OUTSIDE RECORDS SUMMARY | 2024-09-25 11:44 | XMS_ITS | Data Portability ---
Author Organization [facility] [place] Address [address] [place] [address] Care Team Providers Care Electrolysis Operator Name Role Phone SARIKA OLIVA Primary Care Provider Assessment Encounter Date Assessment Date Assessment LastModified by Organization Details LastModified Time 08/07/2020 08/07/2020 Annual gynecological exam performed. Patient will come back in a year unless there are new symptoms. Not available 08/07/2020 11:24:12 11/07/2021 11/07/2021 Annual gynecological exam performed. Patient will come back in a year unless there are new symptoms. [email or web address] Not available 11/07/2021 10:55:01 Plan of Treatment Reminders Order Date Submit Date Provider Last Modified By Organization Details Last Modified Time Details Appointments None recorded. Lab hbcab (hepatitis B core Ab) igm, serum 2021 [facility] (Lab), [address] [place], [address], 21:39:18 HBsAg (hepatitis B surface Ag), serum 2021 022 [facility] (Lab), [address] [place], [address], 21:39:16 hepatitis C virus Ab, serum 2021 022 [facility] (Lab), [address] [place], [address], 21:39:17 unlisted lab - HIV 1/2 antigen/ant ibody, reflex confirmatio n 2021 022 [facility] (Lab), [address], [place], [address], 2 21:39:17 RPR (rapid plasma reagin), serum 2021 022 [facility] (Lab), [address], [place], [address], 21:39:18 hepatitis C virus Ab, serum 2020 021 [facility] (Lab), [address], [place], [address], 21:39:27 unlisted lab - HIV 1/2 antigen/ant ibody, reflex confirmatio n 2020 021 [facility] (Lab), [address], [place], [address], 21:39:27 hsv-2 igg Ab, serum 2020 021 [facility] (Lab), [address], [place], [address], 21:39:28 hbcab (hepatitis B core Ab) igm, serum 2020 021 [facility] (Lab), [address], [place], [address], 21:39:28 HBsAg (hepatitis B surface Ag), serum 2020 021 [facility] (Lab), [address], [place], [address], 18:13:08 RPR (rapid plasma reagin), serum 2020 021 [facility] (Lab), [address], [place], [address], 21:39:28 Referral None recorded. Procedures None recorded. Surgeries None recorded. Imaging MAMMO, screening, bilateral 2021 022 [facility], [address], [place] [address], [place], [address], 2 15:05:24 Medication Orders None recorded. Patient TargetsNo targets recorded. Patient InstructionsNo instructions recorded. Reason for Referral None Reported. Results Created Date Observation Date Name Description Value Unit Range Abnormal Flag Note LastModifiedBy Organization Detail LastModifiedTime 08/08/1908/07/2020 pap, IG + HR HPV image guided Pap, HPV regardless of Pap result SEE RESULT S BELOW CASE REPOR T: Cytol ogy Gynec ologi amol Repor t Case: [id number] Autho summer fritz Provi hoang: Eric Hi Colle cted: 08/07 1314 PLUGMAN Order ing Locat ion: [place] Patho logy Recei lucie: 08/08 0640 First Scree n: Ana Rosa Engle , CT Speci men: Scree valeriy Pap - Image d, Cervi x STATE MENT OF ADEQU ACY: Satis facto ry for evalu ation Trans forma tion zone compo nent prese nt FINAL DIAGN OSIS: Negat paula for Intra epith elial Lesio n or Jane parker (NIL) Shift in brandon sugge stive of bacte rial vagin osis Elect chaparro cha tierra d by Ana Rosa Engle , CT on 021 at 1:00 PM ----- ----- ----- ----- ----- ----- ----- ----- ----- ----- ----- ----- ----- ----- ----- ----- ----- ---- HPV RESUL TS: HPV mRNA E6/E7 : No HPV mRNA Detec mack NOTE: This high risk HPV mRNA assay detec ts fourt een high- risk HPV types (16, 18, 31, 33, 35, 39, 45, 51, 52, 56, 58, 59, 66, 68) witho ut diffe renti ation . CHART ABLE COMME NT: Note: Slide scree alena domitila llpawel due to rejec tion by the Thinp rep Imagi ng Syste m. CLINI AMOL INFOR MATIO N: Menst rual Statu s: LMP (if appli cable ): Clini amol Histo ry/Pr eviou s Pap: Type of Neopl ave (if appli cable ): Other Histo ry: Hormo lora (if appli cable ): PAP EDUCA DIEGO L NOTE: The Pap Test is a scree valeriy test with an inher ent false negat paula rate. Liqui d-bas e sampl ing may decre ase, but will not elimi jina, false negat paula resul ts. A negat paula resul t does not precl ude the prese nce and/o r devel opmen t of disea se, since the prese nce of abnor mal cells in the sampl e depen ds on the locat ion of the lesio n and sampl ing techn ique. Elena nued regul ar scree valeriy is the best metho d of cance r preve ntion . If repor mack cytol ogic findi ng do not corre late with physi amol and/o r histo rical findi ngs, furth er inves tigat ion is recom julissa d, as clini regis warrvalerio nted. Not Available [facility] (Lab) [address], [place], [address], 08/10/2020 14:02:27 08/08/19 21 08/07/2020 trich omona s vagin christen RNA trichomonas vaginalis ribosomal RNA (rrna) Negati ve negati ve Not Available [facility] (Lab) [address], [place], [address], 08/10/2020 14:02:28 08/08/19 21 08/07/2020 CT + NG RNA, PCR, unspe cifie d speci men chlamydia trachomatis, PCR Negati ve negati ve Not Available [facility] (Lab) [address], [place], [address], 08/10/2020 14:02:29 08/08/19 21 08/07/2020 CT + NG RNA, PCR, unspe cifie d speci men neisseria gonorrhoeae, PCR Negati ve negati ve Not Available [facility] (Lab) [address], [place], [address], 08/10/2020 14:02:29 08/08/19 21 08/07/2020 hepat itis C virus Ab, serum hepatitis C antibody (S/co) 0.04 . <1.00 Not Available [facility] (Lab) [address], [place], [address], 08/11/2020 21:39:27 08/08/19 21 08/07/2020 hepat itis C virus Ab, serum hepatitis C antibody Non-re active non-re active Inter preta tion: <0.90 Non-r eacti ve 0.90- 0.99 Borde rline >=1.0 0 React paula This assay was perfo rmed using [employer] Cor[employer] ratio n reage nts and test kits. Value s obtai alena with other assay metho ds or kits canno t be used inter joshua eacrystaly . Not Available [facility] (Lab) [address], [place], [address], 08/11/2020 21:39:27 08/08/19 21 08/07/2020 [facility] lab HIV Ag-Ab total quant 0.06 idx <1.00 Not Available [facility] (Lab) [address], [place], [address], 08/11/2020 21:39:27 08/08/19 21 08/07/2020 unlis mack lab HIV Ag-Ab total Non-re active non-re active Not Available [facility] (Lab) [address] [place], [address], 08/11/2020 21:39:27 08/08/19 21 08/07/2020 [facility] lab HIV-1 antibody quant 0.06 idx <1.00 Not Available [facility] (Lab) [address], [place], [address], 08/11/2020 21:39:27 08/08/19 21 08/07/2020 [facility] lab HIV-1 antibody Non-re active non-re active Not Available [facility] (Lab) [address], [place], [address], 08/11/2020 21:39:27 08/08/19 21 08/07/2020 [facility] lab HIV-1 antigen (P24) quant 0.06 idx <1.00 Not Available [facility] (Lab) [address], [place], [address], 08/11/2020 21:39:27 08/08/19 21 08/07/2020 [facility] lab HIV-1 antigen (P24) Non-re active non-re active Not Available [facility] (Lab) [address] [place], [address], 08/11/2020 21:39:27 08/08/19 21 08/07/2020 [facility] lab HIV-2 antibody quant 0.04 idx <1.00 Not Available [facility] (Lab) [address] [place], [address], 08/11/2020 21:39:27 08/08/19 21 08/07/2020 [facility] lab HIV-2 antibody Non-re active non-re active HIV testi ng is perfo rmed using Multi plex- Bead Immun oassa y techn ology . The final overa ll HIV Ag-Ab resul t is deter mined based on the final resul t for each indiv idual cely te. If any of the cely naida has 2 or more repli cates that are REACT PAULA, the final overa ll HIV Ag-Ab resul t is also React paula. A Non-R eacti ve test resul t at any point in the inves tigat ion of indiv idual subje cts does not precl ude the possi bilit y of expos ure to or infec tion with HIV-1 and/o r HIV-2 . Non-R eacti ve resul ts can occur if the quant ity of marke r prese nt in the sampl e is below the detec tion limit s of the assay . React paula speci mens must be inves tigat ed by addit ional , more speci fic suppl ement al tests . Speci men confi rmati on will be perfo rmed by the [employer] us HIV 1/2 Suppl ement al Assay . The perfo rmanc e of this assay has not been estab lishe d for neona niada and the assay shoul d not be used in indiv idual s young er than 2 years of age. Not Available [facility] (Lab) [address], [place], [address], 08/11/2020 21:39:27 08/08/19 21 08/07/2020 RPR (rapi d plasm a reagi n), serum RPR screen Nonrea ctive nonrea ctive Not Available [facility] (Lab) [address] [place], [address], 08/11/2020 21:39:28 08/08/1908/07/2020 hbcab (hepa titis B core Ab) igm, serum hepatitis B core IgM antibody Negati ve negati ve Not Available [facility] (Lab) [address] [place], [address], 08/11/2020 21:39:28 08/08/19 21 08/07/2020 hsv-2 igg Ab, serum herpes simplex virus 2 IgG Positi ve negati ve abnormal Not Available [facility] (Lab) [address] [place], [address], 08/11/2020 21:39:28 08/08/19 21 08/07/2020 hsv-2 igg Ab, serum herpes simples virus 2 IgG, quant 2.1 ai 0.0-0. 8 high Not Available [facility] (Lab) [address], [place], [address], 08/11/2020 21:39:28 11/10/19 22 11/09/2021 IMAGE GUIDE D PAP AND HPV REGAR DLESS image guided Pap, HPV regardless of Pap result SEE RESULT S BELOW CASE REPOR T: Cytol ogy Gynec ologi amlo Repor t Case: [id number] Autho summer fritz Provi hoang: Eric Hi Colle cted: 11/09 0820 PLUGMAN Order ing Locat ion: [place] Patho logy Recei lucie: 11/10 0820 First Scree n: Argelia Pinto Speci men: Scree valeriy Pap - Image d, Cervi x STATE MENT OF ADEQU ACY: Satis facto ry for evalu ation Trans forma tion zone compo nent prese nt FINAL DIAGN OSIS: Negat paula for Intra epith elial Lesio n or Jane parker (NIL) . Elect chaparro cha tierra d by Argelia Pinto on 022 at 8:58 PM ----- ----- ----- ----- ----- ----- ----- ----- ----- ----- ----- ----- ----- ----- ----- ----- ----- ---- HPV RESUL TS: HPV mRNA E6/E7 : No HPV mRNA Detec mack NOTE: This high risk HPV mRNA assay detec ts fourt een high- risk HPV types (16, 18, 31, 33, 35, 39, 45, 51, 52, 56, 58, 59, 66, 68) witho ut diffe renti ation . COMME NT: Note: This speci men was revie wed by a Cytot echno logis t and/o r Patho logis t (as indic ated in this repor t) after evalu ation using the Thinp rep Imagi ng Syste m. CLINI AMOL INFOR MATIO N: Menst rual Statu s: LMP (if appli cable ): Clini amol Histo ry/Pr eviou s Pap: Type of Neopl ave (if appli cable ): Signi fican t Clini amol Findi ngs: Other Histo ry: Hormo lora (if appli cable ): PAP EDUCA DIEGO L NOTE: The Pap Test is a scree valeriy test with an inher ent false negat paula rate. Liqui d-bas ed sampl ing may decre ase, but will not elimi jina, false negat paula resul ts. A negat paula resul t does not precl ude the prese nce and/o r devel opmen t of disea se, since the prese nce of abnor mal cells in the sampl e depen ds on the locat ion of the lesio n and sampl ing techn ique. Elena nued regul ar scree valeriy is the best metho d of cance r preve ntion . If repor mack cytol ogic findi ng do not corre late with physi amol and/o r histo rical findi ngs, furth er inves tigat ion is recom julissa d, as clini regis rowe nted. Not Available [facility] [address] [place], [address], 11/12/2021 22:01:20 11/10/19 22 11/09/2021 TRICH OMONA S VAGIN CHRISTEN (RRNA ) trichomonas vaginalis ribosomal RNA (rrna) Positi ve negati ve abnormal Prese nce of Trich omona s vagin christen (by MAKSIM) Not Available [facility] [address] [place], [address], 11/12/2021 22:01:20 11/10/19 22 11/09/2021 CT/GC (MAKSIM) , THINP REP VIAL chlamydia trachomatis, PCR Negati ve negati ve Not Available [facility] [address] [place], [address], 11/12/2021 22:01:21 11/10/19 22 11/09/2021 CT/GC (MAKSIM) , THINP REP VIAL neisseria gonorrhoeae, PCR Negati ve negati ve Not Available [facility] [address] [place] [address], [address], 11/12/2021 22:01:21 11/18/19 22 11/17/2021 HEPAT ITIS B SURFA CE ANTIG EN hepatitis B surface antigen Non-re active non-re active This assay was perfo rmed using [employer] Cor[employer] ratio n reage nts and test kits. Value s obtai alena with other assay metho ds or kits canno t be used inter joshua eably . Not Available [facility] [address] [place] [address], [address], 11/18/2021 21:39:16 11/18/19 22 11/17/2021 HEPAT ITIS C ANTIB JOSE SCREE N, REFLE X TO CONFI RMATI ON hepatitis C antibody Non-re active non-re active Antib odies to HCV Not Detec mack, does not exclu de the possi bilit y of expos ure to HCV. Not Available [facility] [address] [place] [address], [address], 11/18/2021 21:39:17 11/18/19 22 11/17/2021 HIV 1/2 ANTIG EN/AN TIBOD Y, REFLE X CONFI RMATI ON HIV Ag-Ab total quant 0.08 idx <1.00 Not Available [facility] [address] [place] [address], [address], 11/18/2021 21:39:17 11/18/19 22 11/17/2021 HIV 1/2 ANTIG EN/AN TIBOD Y, REFLE X CONFI RMATI ON HIV Ag-Ab total Non-re active non-re active Not Available [facility] [address] [place], [place] [address], [place], [address], 11/18/2021 21:39:17 11/18/19 22 11/17/2021 HIV 1/2 ANTIG EN/AN TIBOD Y, REFLE X CONFI RMATI ON HIV-1 antibody quant 0.04 idx <1.00 Not Available [facility] [address] [place], [place] [address], [place], [address], 11/18/2021 21:39:17 11/18/19 22 11/17/2021 HIV 1/2 ANTIG EN/AN TIBOD Y, REFLE X CONFI RMATI ON HIV-1 antibody Non-re active non-re active Not Available [facility] [address] [place], [place] [address], [place], [address], 11/18/2021 21:39:17 11/18/19 22 11/17/2021 HIV 1/2 ANTIG EN/AN TIBOD Y, REFLE X CONFI RMATI ON HIV-1 antigen (P24) quant 0.08 idx <1.00 Not Available [facility] [address] [place], [place] [address], [place], [address], 11/18/2021 21:39:17 11/18/19 22 11/17/2021 HIV 1/2 ANTIG EN/AN TIBOD Y, REFLE X CONFI RMATI ON HIV-1 antigen (P24) Non-re active non-re active Not Available [facility] [address] [place], [place] [address], [place], [address], 11/18/2021 21:39:17 11/18/19 22 11/17/2021 HIV 1/2 ANTIG EN/AN TIBOD Y, REFLE X CONFI RMATI ON HIV-2 antibody quant 0.04 idx <1.00 Not Available [facility] [address] [place], [place] [address], [place], [address], 11/18/2021 21:39:17 11/18/19 22 11/17/2021 HIV 1/2 ANTIG EN/AN TIBOD Y, REFLE X CONFI RMATI ON HIV-2 antibody Non-re active non-re active HIV testi ng is perfo rmed using Multi plex- Bead Immun oassa y techn ology . The final overa ll HIV Ag-Ab resul t is deter mined based on the final resul t for each indiv idual cely te. If any of the cely naida has 2 or more repli cates that are REACT PAULA, the final overa ll HIV Ag-Ab resul t is also React paual. A Non-R eacti ve test resul t at any point in the inves tigat ion of indiv idual subje cts does not precl ude the possi bilit y of expos ure to or infec tion with HIV-1 and/o r HIV-2 . Non-R eacti ve resul ts can occur if the quant ity of marke r prese nt in the sampl e is below the detec tion limit s of the assay . React paula speci mens must be inves tigat ed by addit ional , more speci fic suppl ement al tests . Speci men confi rmati on will be perfo rmed by the [employer] us HIV 1/2 Suppl ement al Assay . The perfo rmanc e of this assay has not been estab lishe d for neona naida and the assay shoul d not be used in indiv idual s young er than 2 years of age. Not Available [facility] [address] [place], [address], 11/18/2021 21:39:17 11/18/19 22 11/17/2021 RPR SCREE N/REF ZEKE TITER /FTA RPR screen Nonrea ctive nonrea ctive Not Available [facility] [address] [place], [address], 11/18/2021 21:39:18 08/09/20 22 11/17/2021 HEPAT ITIS B CORE, IGM hepatitis B core IgM antibody Negati ve negati ve Not Available [facility] [address] [place] [address], [address], 11/18/2021 21:39:18 12/24/19 22 12/23/2021 CT/GC AND TRICH OMONA S VAGIN CHRISTEN (RRNA ), URINE chlamydia trachomatis, PCR Negati ve negati ve Not Available [facility] [address] [place] [address], [address], 12/24/2021 14:41:23 12/24/19 22 12/23/2021 CT/GC AND TRICH OMONA S VAGIN CHRISTEN (RRNA ), URINE neisseria gonorrhoeae, PCR Negati ve negati ve Not Available [facility] [address] [place] [address], [address], 12/24/2021 14:41:23 12/24/19 22 12/23/2021 CT/GC AND TRICH OMONA S VAGIN CHRISTEN (RRNA ), URINE trichomonas vaginalis ribosomal RNA (rrna) Negati ve negati ve Not Available [facility] [address] [place] [address], [address], 12/24/2021 14:41:23 Result Notes None recorded. Procedures Surgical History Date Name Laterality Status Provider Name and Address Organization Details Recorded Time 08/08/19 21 Date of Last Pap Smear completed Renae Cheng [facility] 12/22/2021 16:42:01 05/12/19 21 Date of Last Mammogram completed Heidi Corbin [facility] 08/07/2020 11:45:52 12/15/19 14 Wrist arthroscopy/reshma clair completed Renae Cheng [facility] 12/22/2021 17:10:05 04/11/19 14 procedure on back completed [facility] 12/22/2021 17:07:58 04/11/19 11 procedure on back completed [facility] 12/22/2021 17:07:37 04/11/19 11 procedure on back completed [facility] 12/22/2021 17:07:54 08/15/19 09 section completed [facility] 12/22/2021 17:09:30 04/11/19 06 cervical arthrodesis completed [facility] 12/22/2021 17:08:23 04/11/19 05 cervical arthrodesis completed [facility] 12/22/2021 17:07:31 04/11/19 05 cervical arthrodesis completed [facility] 12/22/2021 17:08:19 Imaging Results None recorded. Procedure Notes None recorded. Medical Equipment None Reported. Allergies Allergen ID Allergen Name Allergen Category Reaction Reaction Severity Criticality Documentation Date Start Date Code Code System Note Provider Name and Address Organization Details Recorded Time 07193 Product containin g penicilli n (product) medicatio n Not available Not available Not available 08/07/2020 95453 8001 SNOMED Heidi [facility] 11:38:59 33360 meloxicam medicatio n Not available Not available Not available 08/07/2020 22128 RxNorm Heidi Corbin [facility] 11:39:07 23330 Vioxx medicatio n Not available Not available Not available 08/07/2020 83108 9 RxNorm Heidi Cor[address] [facility] 11:39:13 22301 Levaquin medicatio n Not available Not available Not available 08/07/2020 54124 2 RxNorm Heidi Corbin [facility] 1 11:39:22 41357 methotrex ate medicatio n Not available Not available Not available 08/07/2020 6851 RxNorm Heidi Corbin [facility], [facility] 1 11:39:29 Medications Name Sig Start Date Stop Date Status Note LastModified by Organization Details LastModified Time quetiapine 25 mg tablet TAKE 1-2 TABLETS BY MOUTH AT BEDTIME NEEDED 12/23 completed Not Available Not Available Not Available fluoxetine 40 mg capsule TAKE 1 CAPSULE BY MOUTH TWICE A DAY ADMINISTE R IN THE MORNING AND AT NOON/MIDD AY active Not Available Not Available No t Available doxycycline hyclate 100 mg capsule TAKE 1 CAP BY MOUTH 2 TIMES DAILY FOR 14 DAYS. 08/07 completed Not Available Not Available Not Available atorvastati n 20 mg tablet TAKE 1 TABLET BY MOUTH EVERY DAY active Not Available Not Available No t Available lamotrigine 200 mg tablet TAKE 1 TABLET BY MOUTH TWICE A DAY active Not Available Not Available No t Available clindamycin HCl 300 mg capsule TAKE 1 CAPSULE BY MOUTH EVERY 6 HOURS 12/23 completed Not Available Not Available Not Available trazodone 50 mg tablet TAKE 1 TABLET BY MOUTH EVERY DAY AT BEDTIME NEEDED FOR 30 DAYS 12/23 completed Not Available Not Available Not Available triamcinolo ne acetonide 0.5 % topical cream APPLY TO AFFECTED AREAS NEEDED UP TO 4 TIMES DAILY (EVERY 6-8 HOURS) FOR ITCHING/I RRITATION 12/23 completed Not Available Not Available Not Available ibuprofen 800 mg tablet TAKE 1 TABLET BY MOUTH THREE TIMES A DAY NEEDED FOR PAIN active Not Available Not Available No t Available Lidocaine Viscous 2 % mucosal solution PLEASE SEE ATTACHED FOR DETAILED DIRECTION S 12/23 completed Not Available Not Available Not Available hydrocodone 5 mg-acetamin ophen 325 mg tablet TAKE 1 TABLET BY MOUTH DAILY NEEDED FOR PAIN FOR UP TO 7 DAYS 08/07 completed Not Available Not Available Not Available metronidazo le 0.75 % (37.5 mg/5 gram) vaginal gel Insert 1 applicato rful every day by vaginal route. 12/23 completed Not Available Not Available Not Available ondansetron HCl 4 mg tablet 12/23 completed Not Available Not Available Not Available famotidine 40 mg tablet TAKE 1 TABLET BY MOUTH TWICE A DAY 12/23 completed Not Available Not Available Not Available prednisone 20 mg tablet TAKE 2 TABLETS BY MOUTH EVERY DAY FOR 5 DAYS 12/23 completed Not Available Not Available Not Available permethrin 5 % topical cream APPLY TOPICALLY HEAD TO FEET, LEAVE FOR 8 TO 10 HRS, WASH WELL, REPEAT IN 7 DAYS IF NEEDED 12/23 completed Not Available Not Available Not Available hydroxyzine pamoate 50 mg capsule TAKE 1 CAPSULE BY MOUTH EVERYDAY AT BEDTIME FOR 30 DAYS NEEDED active Not Available Not Available No t Available metronidazo le 500 mg tablet TAKE 1 TABLET BY MOUTH TWICE A DAY WITH MEALS FOR 7 DAYS 12/23 completed Not Available Not Available Not Available tramadol 50 mg tablet TAKE 1 TABLET BY MOUTH EVERY 6 HOURS NEEDED FOR PAIN 12/23 completed Not Available Not Available Not Available baclofen 20 mg tablet TAKE 1 TABLET BY MOUTH TWICE A DAY active Not Available Not Available No t Available alprazolam 0.5 mg tablet TAKE 1 TABLET BY MOUTH TWICE A DAY NEEDED 12/23 completed Not Available Not Available Not Available alprazolam 0.25 mg tablet TAKE 1 TABLET BY MOUTH TWICE A DAY NEEDED 12/23 completed Not Available Not Available Not Available trazodone 100 mg tablet TAKE 2 TABLETS NEEDED BY MOUTH AT BEDTIME FOR 30 DAYS. active Not Available Not Available No t Available dicyclomine 20 mg tablet TAKE 1 TABLET BY MOUTH TWICE A DAY 12/23 completed Not Available Not Available Not Available baclofen 10 mg tablet TAKE 1 TABLET BY MOUTH THREE TIMES A DAY 08/07 completed Not Available Not Available Not Available cephalexin 500 mg capsule TAKE 1 CAP BY MOUTH 3 TIMES DAILY FOR 5 DAYS. 08/07 completed Not Available Not Available Not Available trazodone 150 mg tablet TAKE 1 TABLET BY MOUTH AT BEDTIME NEEDED FOR 30 DAYS 12/23 completed Not Available Not Available Not Available folic acid 1 mg tablet TAKE 2 TABLETS BY MOUTH EVERY DAY FOR 90 DAYS active Not Available Not Available No t Available morphine ER 15 mg tablet,exte nded release TAKE 1 TABLET BY MOUTH TWICE A DAY 09/20/1908/07 completed Not Available Not Available Not Available methylpredn isolone 4 mg tablets in a dose pack TAKE 6 TABLETS ON DAY 1 DIRECTED ON PACKAGE AND DECREASE BY 1 TAB EACH DAY FOR A TOTAL OF 6 DAYS 12/23 completed Not Available Not Available Not Available albuterol sulfate HFA 90 mcg/actuati on aerosol inhaler 2 PUFF INHALED FOUR TIMES DAILY NEEDED FOR BRONCHOSP ASM active Not Available Not Available No t Available methylpredn isolone 16 mg tablet TAKE 1 TABLET BY MOUTH EVERY DAY 08/07 completed Not Available Not Available Not Available ondansetron 4 mg disintegrat ing tablet DISSOLVE 1 TABLET ON THE TONGUE EVERY 8 HOURS NEEDED FOR NAUSEA AND VOMITING 12/23 completed Not Available Not Available Not Available fluoxetine 20 mg capsule TAKE 2 CAPSULES BY MOUTH ONCE A DAY 12/23 completed Not Available Not Available Not Available azithromyci n 1 gram oral packet MIX 1 PACKET WITH LIQUID AND DRINK BY MOUTH ONCE FOR 1 DOSE 08/07 completed Not Available Not Available Not Available hydroxyzine pamoate 25 mg capsule TAKE 1 CAPSULE BY MOUTH EVERY DAY NEEDED FOR 30 DAYS 12/23 completed Not Available Not Available Not Available aripiprazol e 10 mg tablet TAKE 1 TABLET BY MOUTH EVERY DAY 08/07 completed Not Available Not Available Not Available aripiprazol e 15 mg tablet TAKE 1 TABLET BY MOUTH EVERY DAY 12/23 completed Not Available Not Available Not Available aripiprazol e 5 mg tablet TAKE 1 TABLET BY MOUTH EVERY DAY 08/07 completed Not Available Not Available Not Available duloxetine 30 mg capsule,del ayed release TK 1 C PO QD 08/07 completed Not Available Not Available Not Available duloxetine 60 mg capsule,del ayed release TK ONE C PO QAM 08/07 completed Not Available Not Available Not Available Latuda 40 mg tablet TAKE ONE TABLET BY MOUTH AT DINNERTIM E WITH AT LEAST 350 CALORIES active Not Available Not Available No t Available Rexulti 1 mg tablet TAKE 1 TABLET BY MOUTH EVERY DAY 12/23 completed Not Available Not Available Not Available Rexulti 2 mg tablet TAKE 1 TABLET BY MOUTH EVERY DAY 12/23 completed Not Available Not Available Not Available Narcan 4 mg/actuatio n nasal spray ADMINISTE R 1 SPRAY INTO AFFECTED NOSTRIL(S ) NEEDED FOR OPIOID REVERSAL 08/07 completed Not Available Not Available Not Available Vraylar 6 mg capsule TAKE 1 CAPSULE BY MOUTH EVERY DAY AT BEDTIME FOR 30 DAYS active Not Available Not Available No t Available Vraylar 1.5 mg capsule TAKE 1 CAPSULE BY MOUTH EVERY DAY 12/23 completed Not Available Not Available Not Available Vraylar 4.5 mg capsule TAKE 1 CAPSULE BY MOUTH EVERY DAY AT BEDTIME FOR 30 DAYS 12/23 completed Not Available Not Available Not Available Vraylar 3 mg capsule TAKE 1 CAPSULE BY MOUTH EVERY DAY DIRECTED FOR 30 DAYS 12/23 completed Not Available Not Available Not Available Vitals Date Recorded Body height Body mass index (BMI) Body weight Systolic blood pressure Diastolic blood pressure Provider Name and Address Organization Details Last Updated DateTime 08/07/2020 157.48 cm 26.1 kg/m2 80075.27 g 96 mm[Hg] 62 mm[Hg] Heidi [facility] 11:38:47 Date Recorded Body height Body mass index (BMI) Body weight Systolic blood pressure Diastolic blood pressure Provider Name and Address Organization Details Last Updated DateTime 11/07/2021 157.48 cm 28.5 kg/m2 28294.41 g 99 mm[Hg] 65 mm[Hg] Renae Cheng [facility] 2 10:55:34 Date Recorded Body height Systolic blood pressure Diastolic blood pressure Provider Name and Address Organization Details Last Updated DateTime 12/23/2021 157.48 cm 116 mm[Hg] 70 mm[Hg] Heidi Corbin [facility] 12/23/2021 10:15:30 Social History Question Answer Notes LastModified by Organizat ion Details LastModified Time Tobacco Smoking Status Current Every Day Smoker Heidi Corbin [facility] 08/07/2020 11:53:46 Are You Blind Or Do You Have Difficulty Seeing? No Information n ot available 08/07/2020 What Is Your Level Of Caffeine Consumption? Moderate Information not available 08/07/2020 In The 14 Days Before Symptom Onset, Have You Had Close Contact With A Laboratory-confirm ed COVID-19 While That Case Was Ill? No Information n ot available 08/07/2020 In The 14 Days Before Symptom Onset, Have You Had Close Contact With A Person Who Is Under Investigation For COVID-19 While That Person Was Ill? No Information not available 08/07/2020 Have You Been To An Area Known To Be High Risk For COVID-19? No Information not available 08/07/2020 Are You Deaf Or Do You Have Serious Difficulty Hearing? No Information not available 08/07/2020 What Type Of Diet Are You Following? REGULAR Information n ot available 08/07/2020 What Is Your Current Pack Years? 20-29packyear s Information not available 08/07/2020 Do You Use Your Seat Belt Or Car Seat Routinely? Yes Information not available 08/07/2020 Do You Have Smoke And Carbon Monoxide Detectors In Your Home? Yes Information not available 08/07/2020 How Much Tobacco Do You Smoke? 0.5 PPD Information not available 08/07/2020 Do You Use Sunscreen Routinely? Yes Information not available 08/07/2020 Has Tobacco Cessation Counseling Been Provided? Yes Information not available 08/07/2020 On What Date Was Tobacco Cessation Counseling Provided? 08/07/2020 Information not available 08/07/2020 Sex: Unknown Functional Status Question Answer Note LastModified by Organizat ion Details LastModified Time Do you use any illicit or recreational drugs? No Information not available 08/07/2020 What is your level of alcohol consumption? None Information not available 08/07/2020 Are you able to walk? YESWOREST Information not available 08/07/2020 What is your exercise level? Occasional Information not available 08/07/2020 Mental Status Question Answer Note LastModified by Organization D etails LastModified Time Do you feel stressed (tense, restless, nervous, or anxious, or unable to sleep at night)? [id number] Information not available 08/07/2020 Family History Relationship Description Onset Age of this Age Resolved Age Notes LastModified by Organization Details LastModified Time Paternal Grandmother Anemia Not available 2020 11:48:42 Paternal Grandmother Asthma Not available 2020 11:48:45 Paternal Grandmother Malignant neoplasm of lung Not available 2020 11:49:03 Paternal Grandfather Heart disease Not available 2020 11:48:25 Paternal Grandfather Diabetes mellitus Not available 2020 11:49:42 Paternal Grandfather Hypertensive disorder Not available 2020 11:51:01 Paternal Uncle Malignant neoplasm of lung Not available 2020 11:49:03 Paternal Uncle Heart disease Not available 2020 11:49:12 Paternal Uncle Seizure disorder Not available 2020 11:52:16 Paternal Uncle Malignant neoplasm of prostate [email or web address] Not available 08/08 13:38:22 Mother Diabetes mellitus Not available 2020 11:49:42 Mother Genetic disease Not available 2020 11:50:12 Mother Hypercholest erolemia Not available 2020 11:50:44 Father Diabetes mellitus Not available 2020 11:49:42 Father Hypercholest erolemia Not available 2020 11:50:44 Father Hypertensive disorder Not available 2020 11:51:01 Sister Diabetes mellitus Not available 2020 11:49:42 Sister Cyst of ovary Not available 2020 11:51:38 Maternal Aunt Diabetes mellitus Not available 2020 11:49:42 Brother Genetic disease Not available 2020 11:50:12 Brother Hypertensive disorder Not available 2020 11:51:01 Brother Mental disorder Not available 2020 11:51:50 Paternal Aunt Chronic hepatitis Not available 2020 11:50:27 Maternal Uncle Seizure disorder Not available 04/29/ 2021 11:52:16 Maternal Grandmother Malignant tumor of vulva Not available 2020 11:52:41 Medical History Condition Response Allergies (Food, seasonal, environmental ) N Other Y Blood Transfusion N Drug/Latex Allergies/Reactions Y Breast Cancer N Dermatologic Disorders N Lung Disease N Defects or Inherited Disease N Breast Problem N Gestational Diabetes N Hematologic disorders N Anesthesia Complications N History of STI Y Deep Vein Thrombosis N Polycystic ovary syndrome N Anxiety Disorder Y Autoimmune disease N Arthritis N Infertility N Polyps N Acid Reflux (GERD) N History of abnormal pap N Cancer N Stroke N Varicosities N Neurologic/Epilepsy Y Endometriosis N High Cholesterol Y Headaches N Fibromyalgia Y Kidney Disease N Heart Problems N Kidney or Bladder Problems N Thyroid Problems N GI Problems Y Eating Disorder N Anemia N Art (IVF or FET) N Psychiatric Illness Y Ovarian Cancer N Diabetes N Pulmonary (TB, Asthma) N Hepatitis/Liver Disease N No Past Medical History N Eczema N Urinary Tract Infection N Abuse/Domestic Violence N Asthma Y Trauma/Violence N Depression/ depression Y Heart Disease N Pre-Eclampsia N Hypertension N Osteoporosis N Thrombophilias N Gynecological History Statement/Question Response Abnormal Pap N Date of Last Mammogram 05/12/2020 STIs/STDs Yes 14 Current Control Method IUD Sexually Active? N Menses Monthly N Date of DEXA bone scan Age of first menstrual cycle 14 Date of Last Pap Smear 08/07/2020 Sexual Problems? N LMP Unknown Obstetrics History GPAL:G 2 P 2 0 0 2 Type Value Full Term 2 Living 2 Total 2 Past Encounters Encounter ID Performer Location Encounter Start Date Encounter Closed Date Diagnosis/Indication Diagnosis SNOMED-CT Code Diagnosis ICD10 Code Diagnosis Note [id number] [facility] [address] [address] 08/07/2020 11:12:14 08/07/2020 16:41:29 Gynecologic examination 72859799 Z01.419 Suggested Calcium with Vitamin D 1200-1500m g daily. Patient advised to get an annual flu shot in the fall and she could obtain at [facility] or [facility] take care clinic. Also to obtain TDap vaccinatio n if you have not had one in the last 10 years. Recommend yearly mammograms . Encouraged monthly self breast exams. Encourage safe sexual practices, to use condoms and limit partners if not already in a monogamous relationsh ip. Engage in daily exercise of low impact aerobic exercise 45-60 minutes 4-5 times weekly. Avoid tobacco and illicit drugs as well as using moderation with alcohol intake less than 1-2 8 oz beverages daily. This lifestyle behavior pattern will lead to less health conditions and longer life span. If BMI greater than 25 weight watchers or dietary consult advised. All questions have been answered. Patient appears to understand informatio n, but if you have any questions please call or respond to this email. Dr. Campbell [employer] mammo-orde red Fam Hx breast cancer neg Pap/hpv x 2 abn 1997 but only f/u pap's. Pap/hpv/ST D sent Mirena placed (3rd device)--S he will have records sent with exact date of IUD placement. We did discuss FDA approval for 6yrs vs 5yrs Mirena. [facility] ip: +HSV/Sphyi lis Sexually t ransmitted infectious disease [id number] A64 Diagnosed + Sphyilis 2019. Abx 3-4wks treatment (3 different) --treated at ED. Never retested. We will send testing and call with results. [id number] Katy Devlin , [facility] [address] [address] 11/07/2021 10:05:17 11/07/2021 11:16:38 Gynecologic examination [id number] Z01.419 Z11.51 Suggested Calcium with Vitamin D 1200-1500m g daily. Patient advised to get an annual flu shot in the fall and she could obtain at [facility] or [facility] take care clinic. Also to obtain TDap vaccinatio n if you have not had one in the last 10 years. Recommend yearly mammograms . Encouraged monthly self breast exams. Encourage safe sexual practices, to use condoms and limit partners if not already in a monogamous [facility] ip. Engage in daily exercise of low impact aerobic exercise 45-60 minutes 4-5 times weekly. Avoid tobacco and illicit drugs as well as using moderation with alcohol intake less than 1-2 8 oz beverages daily. This lifestyle behavior pattern will lead to less health conditions and longer life span. If BMI greater than 25 weight watchers or dietary consult advised. All questions have been answered. Patient appears to understand informatio n, but if you have any questions please call or respond to this email. Pap/hpv sentSTD Screen sentGeneti c Screen discussedC olon Screen naDexa Screen naRoutine Labs UTD PCPMammo ordered Screening mammography 24 [id number] Z12.31 Sexually t ransmitted infectious disease [id number] A64 [id number] LINETTE [facility] [address] [address] 12/23/2021 09:52:16 12/23/2021 10:29:44 Venereal disease screening [id number] Z11.3 Urine sent in for TOCAsympto maticPartn er treated Safe sex counseling verbalized with understand ing Time spent in visit is a total of 15 mins with at least 50% of visit consisting of counseling and review of plan of care. Health Concerns Section Related Observation LastModified by Organization Detai ls LastModified Time None Recorded Concern Status LastModified by Organization Details LastModified Time None Recorded Advance Directives Directive None Recorded Payers Insurance Date Sequence Insurance Name Policy Number Policy Daily Covered Member ID Daily Member ID Guarantor Name 01/14/2022 2 [place] [employer] [place] [employer] Akua Phan [id number] Akua Phan 11/07/2021 3 [facility] - DOS ON OR AFTER 2020 - DUAL ELIGIBLE (MEDICARE REPLACEMENT/AD VANTAGE - HMO) Akuapaulette Phan [id number] Akua Emilie 08/07/2020 2 [facility] - AETNA CHOICE POS II (POS) Adithyawesley Phan [id number] Akua Phan 03/23/2022 1 [facility] - AETNA (POS II) [id number] Adithya Phan [id number] Akua Emilie 03/23/2022 1 [place] Akua Phan [id number] Akau Phan 11/07/2021 2 [employer] (MEDICARE REPLACEMENT/AD VANTAGE - PPO) Akua Phan [id number] Akua Phan 11/07/2021 3 [facility] - DOS ON OR AFTER 2020 - DUAL ELIGIBLE (MEDICARE REPLACEMENT/AD VANTAGE - HMO) Akua Phan [id number] Akua Phan 03/23/2022 1 [employer] (MEDICARE REPLACEMENT/AD VANTAGE - HMO) Akua Phan [id number] Akua Phan 01/14/2022 1 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 Akua Phan Notes Date Note Type Note Provider Name and Address Organization Details Recorded Time 08/07/2020 text/html Annual GYNReport ed bypatient.History: no gynecologic complaints Menstrual cycle:Normal menses Urinary symptoms:No hematuria; No incontinence Vulva:No genital lesion Vagina:Normal vaginal discharge Breast:No breast pain; No breast lump; No nipple discharge Current Contraception:Sati sfied with current contraception; Monogamous relationship; Intrauterine device (iud) Sexual complaints:No sexual complaints; No pain during intercourse; Normal libido Menopausal Symptoms:No menopausal symptoms; Normal vaginal lubrication Psychological symptoms:No depression; No anxiety; No PMDD Preventive measures:Encourage self breast examination; Encourage regular exercise; Encourage no tobacco use; Encourage regular mammograms starting age 40; Followed with Q3 year pap smear and high risk HPV typing; Needs to schedule mammogram REJI [facility] [address], [place], [address], [facility] 08/07/2020 16:35:51 11/07/2021 text/html Annual GYNReport ed bypatient.History: no gynecologic complaints Menstrual cycle:Normal menses Urinary symptoms:No hematuria; No incontinence Vulva:No genital lesion Vagina:Normal vaginal discharge Breast:No breast pain; No breast lump; No nipple discharge Current Contraception:Sati sfied with current contraception; Intrauterine device (iud) Sexual complaints:No sexual complaints; No pain during intercourse; Normal libido Menopausal Symptoms:No menopausal symptoms; Normal vaginal lubrication Psychological symptoms:No depression; No anxiety; No PMDD Preventive measures:Encourage self breast examination; Encourage regular exercise; Encourage no tobacco use; Encourage regular mammograms starting age 40; Needs to schedule mammogram [address] [place], [address], [facility] 11/07/2021 11:06:52 12/23/2021 text/html Here today for S TD screen ANIYAH. Katy Devlin, [facility]- [address], [place], [address], [facility] 12/23/2021 10:25:09 OBGyn Episode Ob Episode Information Episode Created Date Number of Fetuses Patient Bloodtype Patient rh Status Prepregnancy Weight lbs Domestic Partner Domestic Partner Phone Father Name Radio Television Announcer Status 08/08/19 21 1 CLOSED Fetus Data First Name Last Name Admitted to NICU Weight (g) Sex Living Outcome Pediatric Complications Fetus ID Race Codes Race Delivery Type 2948.34 8 F Full Term [id number] Vaginal Delivery Carlos Calculation Initial Carlos Date Initial Exam Date Initial Exam Provider Initial Ultrasound Date Last Menstrual Period Date Ultra Sound Weeks Gestation 0 Eighteen To Twenty Week Carlos Update Ultra Sound Date Fundal Height At Umbil Quickening Date Ultra Sound Latest Weeks Gestation Final Carlos Confirmed By Final Carlos Confirmed Date Final Carlos Date Ultra Sound Latest Days Gestation 0 0 Menstrual History Last Menstrual Date Menses Monthly On Bcp Conception Prior Menses Frequency Hcg Plus Date Menarche Onset Age Delivery Information Delivery Date Delivery Type Labor Anesthesia Weeks Gestation Incision Type Labor Labor Length Hrs Delivered By Post Complications Tubal Sterilization Discharge Date Comments 8 39 false Discharge Information Feeding Method Contraceptive Method Maternal HG B and HCT Levels Ob Episode Information Episode Created Date Number of Fetuses Patient Bloodtype Patient rh Status Prepregnancy Weight lbs Domestic Partner Domestic Partner Phone Father Name Radio Television Announcer Status 08/08/19 21 1 CLOSED Fetus Data First Name Last Name Admitted to NICU Weight (g) Sex Living Outcome Pediatric Complications Fetus ID Race Codes Race Delivery Type 3685.43 5 M Full Term [id number] Primary Carlos Calculation Initial Carlos Date Initial Exam Date Initial Exam Provider Initial Ultrasound Date Last Menstrual Period Date Ultra Sound Weeks Gestation 0 Eighteen To Twenty Week Carlos Update Ultra Sound Date Fundal Height At Umbil Quickening Date Ultra Sound Latest Weeks Gestation Final Carlos Confirmed By Final Carlos Confirmed Date Final Carlos Date Ultra Sound Latest Days Gestation 0 0 Menstrual History Last Menstrual Date Menses Monthly On Bcp Conception Prior Menses Frequency Hcg Plus Date Menarche Onset Age Delivery Information Delivery Date Delivery Type Labor Anesthesia Weeks Gestation Incision Type Labor Labor Length Hrs Delivered By Post Complications Tubal Sterilization Discharge Date Comments 9 39 false Discharge Information Feeding Method Contraceptive Method Maternal HG B and HCT Levels
== END ==
PROVIDERS: PCP Internal Medicine; Visit Provider Internal Medicine
DX: M06.9 Rheumatoid arthritis, unspecified (principal); M19.071 Primary osteoarthritis, right ankle and foot; Z98.1 Arthrodesis status; M51.369 Other intervertebral disc degeneration, lumbar region without mention of lumbar back pain or lower extremity pain
CPT/HCPCS: 72100; 72202; 73120; 73620

== ENCOUNTER 2025-01-10 00:45 | Day surgery (SDC) | payer MEDICARE, MEDICAID, SELFPAY ==
[2025-01-01 09:40] VITALS: BMI 30.4
[2025-01-10 09:40] VITALS: BP 116/95; PULSE 104; RESP 16; TEMP 36; O2SAT 100; BMI 29.2
[2025-01-10] MEDS: LACTATED RINGERS 1,000 ML 150 ML IV CONT (10:06)
--- NOTE | 2025-01-10 10:12 | WPDANESEPPF ---
Anes - Initial Pre Proc Eval Procedure: Operation Date: 01/10/25 11:00 Proposed Procedures p Esophagogastroduodenoscopy&Screen Colon - Andrés Stock MD Date/Time: 01/10/25 10:12 Surgeon: Andrés Stock MD Pre Op Diagnosis: Encounter for screening for malignant neoplasm of Patient Data Age: 44 Gender: F Height: 1.55 m Weight: 70.1 kg Last Vital Signs Temp 36.0 C L 01/10/25 09:40 Pulse 104 H 01/10/25 09:40 Resp 16 01/10/25 09:40 BP 116/95 H 01/10/25 09:40 Pulse Ox 100 01/10/25 09:40 O2 Del Method Room Air 01/10/25 09:40 Allergies Allergy/AdvReac Type Severity Reaction Status Date / Time rofecoxib Allergy Intermediate hives Verified 01/10/25 09:47 levofloxacin Allergy Unknown Rash Verified 01/10/25 09:47 meloxicam Allergy Unknown Rash Verified 01/10/25 09:47 methotrexate Allergy Unknown Rash Verified 01/10/25 09:47 paroxetine Allergy Unknown Rash Verified 01/10/25 09:47 Penicillins Allergy Unknown HIVES Verified 01/10/25 09:47 sertraline Allergy Unknown Rash Verified 01/10/25 09:47 Home Medications ?Medication ?Instructions ?Recorded ?Confirmed ?Type fluoxetine 40 mg capsule 40 mg PO BID #180 caps 09/28/22 01/10/25 Rx hydroxyzine HCl 50 mg tablet 50 mg PO TID 08/24/23 01/10/25 History gabapentin 100 mg capsule 100 mg PO TID 11/03/23 01/10/25 History oxycodone 5 mg tablet 5 mg PO Q6H PRN pain 11/03/23 01/10/25 History dicyclomine 20 mg tablet See Rx Instructions .Route 02/21/24 01/10/25 Rx .COMPLEX #60 tabs quetiapine 50 mg tablet 200 mg PO QHS 02/21/24 01/10/25 History ropinirole 0.5 mg tablet See Rx Instructions .Route 02/21/24 01/10/25 Rx .COMPLEX #30 tabs atogepant 60 mg tablet (Qulipta) 60 mg PO DAILY 10/26/24 01/10/25 History cyclobenzaprine 10 mg tablet 10 mg PO TID 10/26/24 01/10/25 History fluticasone propionate 50 1 spray intranasal DAILY 30 days 10/26/24 01/10/25 Rx mcg/actuation nasal #16 grams spray,suspension hydroxychloroquine 200 mg tablet 200 mg PO BID 10/26/24 01/01/25 History (Plaquenil) midodrine 10 mg tablet 10 mg PO TID 10/26/24 01/01/25 History ibuprofen 800 mg tablet 800 mg PO TID PRN pain #90 tabs 11/20/24 01/01/25 Rx atorvastatin 20 mg tablet See Rx Instructions .Route 12/04/24 01/10/25 Rx .COMPLEX #30 tabs ropinirole 1 mg tablet 1 mg PO DAILY 01/01/25 01/10/25 History Patient hx anesthesia problems: none Family hx anesthesia problems: none Results Review: All pre-operative results and documents have been reviewed as part of the pre-operative evaluation. [facility] Past Medical History Medical History (Updated 01/10/25 @ 10:12 by Van Barahona DO) Chronic, continuous use of opioids oxycodone 5 mg 4x/day Bipolar disorder GERD (gastroesophageal reflux disease) Encounter for Papanicolaou smear for cervical cancer screening Screening mammogram, encounter for Nausea Memory impairment Fracture of multiple metatarsal bones Foot pain Preventative health care Foot pain, right Trochanteric bursitis Hip pain Finger pain Hand pain Encounter for acupuncture visit Body aches Loss of taste URI (upper respiratory infection) Knee pain Wellness examination Allergic bronchospasm due to dietary substance Diabetes with Family history of diabetes mellitus (DM) Encounter for screening Former smoker Weight loss Family history of osteoporosis Osteoarthritis IBS (irritable bowel syndrome) Anxiety Allergies Depression Fibromyalgia Arthritis Migraines Back pain DDD (degenerative disc disease) Surgical History Surgical History H/O gynecological procedure 07/05/2005 colpo/bx LYUBOV II H/O gynecological procedure 12/20/2018 Mirena IUD removal/reinsertion 09/26/13 Mirena IUD removal/reinsertion 10/29/08 Mirena IUD insertion History of delivery Hx of spinal surgery cervical and spinal surgery Hx of appendectomy Family History Family History Father Diabetes mellitus Hypertension Cancer Anxiety and depression Mother Diabetes mellitus Sibling Diabetes mellitus Hypertension Unknown Asthma Anxiety and depression Grandparent Cancer Grandparent Cancer Diabetes mellitus Hypertension Depression Social History Social History Smoking packs per day: 0.5 Smoking cigarettes per day: 10.0 Years smoked: 15 Smoking pack-years: 7.50 Smoking status: Current every day smoker Second hand tobacco smoke exposure: Yes Alcohol intake: never Substance use: current Substance use type: marijuana Other substance usage details: daily medical card Do You Feel Safe in your Home?: Yes Lack of Transportation: No Lack of Food: Never True Current Housing: I Have Housing Concerned About Future Housing: No Difficulty Paying Gas/Electric Bills: No Difficulty Paying for Meds: No Currently Unemployed: No Education: High School Diploma/GED Difficulty w/ Childcare or Family Care: No Living arrangements: with family Additional living arrangements comments: / lives with partner Occupation/Education: unemployed Additional occupation/education comments: disability Gender identity (if verbalized by the patient): Female Sexual Orientation (if Verbalized by the Patient): Straight or Heterosexual Spiritual care concerns: No Anes - Eval Final PreProcedure Day of Procedure 01/10/25 10:12 Patient weight: overweight Heart: regular rate and rhythm Lungs: clear to auscultation Airway: Mallampati scale class II Neurological: alert and oriented Last oral intake: >/= 8 hours ASA classification: III Emergent: no Anesthetic plan: proceed Anesthesia type and monitoring: general GIVS and standard monitoring Results Review: All pre-operative results and documents have been reviewed as part of the pre-operative evaluation. Informed Consent: The patient's anesthetic plan and its attendant risks and benefits were discussed with the patient/family/POA. Questions were solicited and answers provided to the satisfaction of the patient/family/POA.
--- NOTE | 2025-01-10 10:41 | PM.HPGS ---
History of Present Illness History of Present Illness Consent: Risks, benefits, and alternatives have been discussed and questions answered. Patient agrees to proceed with procedure. Chief complaint: Encounter for screening for malignant neoplasm of Narrative: Akua Garcia is a 44 year old female with gerd, ibs on omeprazole, first time having scopes Review of Systems Review of Systems: All systems reviewed & are unremarkable except as noted in HPI and below PMFSH Past Medical History Medical History (Updated 01/10/25 @ 10:45 by Andrés Stock MD) Colon cancer screening Chronic, continuous use of opioids oxycodone 5 mg 4x/day Bipolar disorder GERD (gastroesophageal reflux disease) Encounter for Papanicolaou smear for cervical cancer screening Screening mammogram, encounter for Nausea Memory impairment Fracture of multiple metatarsal bones Foot pain Preventative health care Foot pain, right Trochanteric bursitis Hip pain Finger pain Hand pain Encounter for acupuncture visit Body aches Loss of taste URI (upper respiratory infection) Knee pain Wellness examination Allergic bronchospasm due to dietary substance Diabetes with Family history of diabetes mellitus (DM) Encounter for screening Former smoker Weight loss Family history of osteoporosis Osteoarthritis IBS (irritable bowel syndrome) Anxiety Allergies Depression Fibromyalgia Arthritis Migraines Back pain DDD (degenerative disc disease) Surgical History Surgical History H/O gynecological procedure 07/05/2005 colpo/bx LYUBOV II H/O gynecological procedure 12/20/2018 Mirena IUD removal/reinsertion 09/26/13 Mirena IUD removal/reinsertion 10/29/08 Mirena IUD insertion History of delivery Hx of spinal surgery cervical and spinal surgery Hx of appendectomy Family History Family History Father Diabetes mellitus Hypertension Cancer Anxiety and depression Mother Diabetes mellitus Sibling Diabetes mellitus Hypertension Unknown Asthma Anxiety and depression Grandparent Cancer Grandparent Cancer Diabetes mellitus Hypertension Depression Social History Social History Smoking packs per day: 0.5 Smoking cigarettes per day: 10.0 Years smoked: 15 Smoking pack-years: 7.50 Smoking status: Current every day smoker Second hand tobacco smoke exposure: Yes Alcohol intake: never Substance use: current Substance use type: marijuana Other substance usage details: daily medical card Do You Feel Safe in your Home?: Yes Lack of Transportation: No Lack of Food: Never True Current Housing: I Have Housing Concerned About Future Housing: No Difficulty Paying Gas/Electric Bills: No Difficulty Paying for Meds: No Currently Unemployed: No Education: High School Diploma/GED Difficulty w/ Childcare or Family Care: No Living arrangements: with family Additional living arrangements comments: / lives with partner Occupation/Education: unemployed Additional occupation/education comments: disability Gender identity (if verbalized by the patient): Female Sexual Orientation (if Verbalized by the Patient): Straight or Heterosexual Spiritual care concerns: No Meds Home Medications and Allergies Home Medications ?Medication ?Instructions ?Recorded ?Confirmed ?Type fluoxetine 40 mg capsule 40 mg PO BID #180 caps 09/28/22 01/10/25 Rx hydroxyzine HCl 50 mg tablet 50 mg PO TID 08/24/23 01/10/25 History gabapentin 100 mg capsule 100 mg PO TID 11/03/23 01/10/25 History oxycodone 5 mg tablet 5 mg PO Q6H PRN pain 11/03/23 01/10/25 History dicyclomine 20 mg tablet See Rx Instructions .Route 02/21/24 01/10/25 Rx .COMPLEX #60 tabs quetiapine 50 mg tablet 200 mg PO QHS 02/21/24 01/10/25 History ropinirole 0.5 mg tablet See Rx Instructions .Route 02/21/24 01/10/25 Rx .COMPLEX #30 tabs atogepant 60 mg tablet (Qulipta) 60 mg PO DAILY 10/26/24 01/10/25 History cyclobenzaprine 10 mg tablet 10 mg PO TID 10/26/24 01/10/25 History fluticasone propionate 50 1 spray intranasal DAILY 30 days 10/26/24 01/10/25 Rx mcg/actuation nasal #16 grams spray,suspension hydroxychloroquine 200 mg tablet 200 mg PO BID 10/26/24 01/01/25 History (Plaquenil) midodrine 10 mg tablet 10 mg PO TID 10/26/24 01/01/25 History ibuprofen 800 mg tablet 800 mg PO TID PRN pain #90 tabs 11/20/24 01/01/25 Rx atorvastatin 20 mg tablet See Rx Instructions .Route 12/04/24 01/10/25 Rx .COMPLEX #30 tabs ropinirole 1 mg tablet 1 mg PO DAILY 01/01/25 01/10/25 History Allergies Allergy/AdvReac Type Severity Reaction Status Date / Time rofecoxib Allergy Intermediate hives Verified 01/10/25 09:47 levofloxacin Allergy Unknown Rash Verified 01/10/25 09:47 meloxicam Allergy Unknown Rash Verified 01/10/25 09:47 methotrexate Allergy Unknown Rash Verified 01/10/25 09:47 paroxetine Allergy Unknown Rash Verified 01/10/25 09:47 Penicillins Allergy Unknown HIVES Verified 01/10/25 09:47 sertraline Allergy Unknown Rash Verified 01/10/25 09:47 Vital Signs Vital Signs - 24 hr 01/10/25 09:40 Temperature 96.8 F L Pulse Rate 104 H Respiratory Rate 16 Blood Pressure 116/95 H Pulse Oximetry 100 Oxygen Delivery Room Air Exam Const: General: comfortable and no acute distress HENMT: Face/Nose/Sinus: Normal nares present Resp: Auscultation: clear to auscultation bilaterally Cardio: Rate: regular rate Rhythm: regular rhythm GI: Inspection: non-distended GI Palp: Yes Soft to palpation Extrem: General: normal to inspection Psych: Mental Status: mental status grossly normal Assessment and Plan Assessment and plan (1) GERD (gastroesophageal reflux disease): Code(s): K21.9 - Gastro-esophageal reflux disease without esophagitis Status: Acute Assessment and Plan: egd (2) Colon cancer screening: Code(s): Z12.11 - Encounter for screening for malignant neoplasm of colon Status: Acute Assessment and Plan: colonoscopy
--- NOTE | 2025-01-10 10:54 | SUR.OPER ---
EGD [id number] Colon start time 1053
--- NOTE | 2025-01-10 11:07 | S_PTH ---
PATIENT: Akua Phan LOC: [facility]#:[id number] AGE/SX: 44/F ROOM: RE01/10/[address]: Andrés Stock MD : 1980 BED: DIS: 01/10/2025 SPEC #: [id number] RECD: 01/10/25 11:40 STATUS: AVRIL REKarishma #: [id number] GANESH: 01/10/25 11:[address]: Andrés Stock DEPT: [facility] Surgical RECD BY: Eugenia Monge MLT, ([facility]) ENTERED: 01/10/25 11:40 SP TYPE: Surgical OTHR DR: Anup Lowe MD Tissues: A - Gastric Biopsy B - Small Bowel Bx Procedures: Hematoxylin and Eosin Stain Gross and Microscopic Level 4
[2025-01-10 11:10] VITALS: BP 115/75; PULSE 89; RESP 20; O2SAT 100
[2025-01-10 11:19] VITALS: BP 121/78; PULSE 85; RESP 22; O2SAT 100
[2025-01-10 11:28] VITALS: BP 100/75; PULSE 88; RESP 18; O2SAT 100
== END 2025-01-10 11:32 | disposition home or self-care (01) ==
PROVIDERS: PCP Emergency Medicine; Visit Provider Internal Medicine Gastroenterology
PROC: 0DJ08ZZ Inspection of Upper Intestinal Tract, Via Natural or Artificial Opening Endoscopic (ICD-10-PCS; CPT 45378; principal; 2025-01-10 11:00)
DX: Z12.11 Encounter for screening for malignant neoplasm of colon (principal); K64.8 Other hemorrhoids; K29.70 Gastritis, unspecified, without bleeding; K21.9 Gastro-esophageal reflux disease without esophagitis; K58.9 Irritable bowel syndrome, unspecified; F17.210 Nicotine dependence, cigarettes, uncomplicated; F12.90 Cannabis use, unspecified, uncomplicated
CPT/HCPCS: 43239; G0121; 88305; J2003; J2704; J7120